=== PATIENT | male | born 1995 | race Caucasian/White ===

== ENCOUNTER 2017-11-02 18:20 | Inpatient (IN) | payer MEDICARE, MEDICAID ==
[~2017-11-02] VITALS: Ht 177.8 cm; Wt 62.1 kg
[~2017-11-02 18:20] MED LIST: ARIP15TA PO
--- OUTSIDE RECORDS SUMMARY | 2017-11-02 18:24 | XMS REPORT ---
Author Author FE REYES eClinicalWorks Address Unknown Phone Unavailable Care Team Providers Care School Physical Therapist Name Role Phone FE REYES CP Unavailable Allergies No Known Allergies Problems Problem Type Condition Code Onset Dates Condition Status Problem Acute bronchitis 466.0 Active Problem Bipolar disorder, unspecified 296.80 Active Problem Encounter for long-term (current) use of other medications V58.69 Active Problem Bipolar affective disorder F31.9 Active Problem Social phobia F40.10 Active Problem ADHD (attention deficit hyperactivity disorder), combined type F90.2 Active Problem Social phobia 300.23 Active Problem Vomiting alone 787.03 Active Problem Oppositional defiant behavior F91.3 Active Problem Attention deficit disorder of childhood without mention of hyperactivity 314.00 Active Assessment ADHD (attention deficit hyperactivity disorder), combined type F90.2 Active Assessment Bipolar affective disorder F31.9 Active Assessment Oppositional defiant behavior F91.3 Active Problem Fever, unspecified 780.60 Active Assessment Social phobia F40.10 Active Problem Cough 786.2 Active Medications Medication Code System Code Instructions Start Date End Date Status Dosage Abilify [facility] [address]-36 10 MG Orally Once a day Aug 01, 2013 1 tablet Intuniv [facility] [address]-80 1 MG Orally 1 tablet at HS for 7 days and then increase to 2 tabs at HS Apr 23, 2015 1 tablet Lexapro [facility] [address]-02 10 MG Orally Once a day 1 tablet Procedures Procedure Coding System Code Date Office Visit, Est Pt., Level 4 CPT-4 84291 Jun 04, 2015 Vital Signs Date/Time: Jun 04, 2015 Cardiac Monitoring Heart Rate 76 bpm Weight 156.8 lbs Height 67.75 in Wt Percentile 61.6 % BMI 24.02 Index Blood Pressure Diastolic 74 mmHg Blood Pressure Systolic 112 mmHg BMIPercentile 72.74 % Results No Known Results Summary Purpose eClinicalWorks Submission
--- OUTSIDE RECORDS SUMMARY | 2017-11-02 18:25 | XMS REPORT ---
Author FE Delgado eClinicalWorks Address Unknown Phone Unavailable Care Team Providers Care Computer Operations Supervisor Name Role Phone FE REYES CP Unavailable Allergies No Known Allergies Problems Problem Type Condition Code Onset Dates Condition Status Problem Acute bronchitis 466.0 Active Problem Bipolar disorder, unspecified 296.80 Active Problem Encounter for long-term (current) use of other medications V58.69 Active Problem Fever, unspecified 780.60 Active Problem Cough 786.2 Active Problem Bipolar affective disorder F31.9 Active Problem Social phobia F40.10 Active Problem ADHD (attention deficit hyperactivity disorder), combined type F90.2 Active Problem Social phobia 300.23 Active Problem Vomiting alone 787.03 Active Problem Oppositional defiant behavior F91.3 Active Problem Attention deficit disorder of childhood without mention of hyperactivity 314.00 Active Medications Medication Code System Code Instructions Start Date End Date Status Dosage Lexapro [facility] [address]-97 10 MG Orally Once a day 1 tablet Results No Known Results Summary Purpose eClinicalWorks Submission
--- OUTSIDE RECORDS SUMMARY | 2017-11-02 18:25 | XMS REPORT ---
Author Author FE REYES eClinicalWorks Address Unknown Phone Unavailable Care Team Providers Care Soda Clerk Name Role Phone FE REYES CP Unavailable Allergies No Known Allergies Problems Problem Type Condition Code Onset Dates Condition Status Assessment Social phobia F40.10 Active Problem Fever, unspecified 780.60 Active Assessment ADHD (attention deficit hyperactivity disorder), combined type F90.2 Active Assessment Bipolar affective disorder F31.9 Active Problem Social phobia 300.23 Active Problem Vomiting alone 787.03 Active Problem Attention deficit disorder of childhood without mention of hyperactivity 314.00 Active Problem Acute bronchitis 466.0 Active Problem Cough 786.2 Active Problem Bipolar disorder, unspecified 296.80 Active Problem Encounter for long-term (current) use of other medications V58.69 Active Medications Medication Code System Code Instructions Start Date End Date Status Dosage Abilify [facility] [address]-41 10 MG Orally Take 1/2 tablet for 5 nights then increase to 1 whole tablet and continue Aug 01, 2013 1 tablet Lexapro [facility] [address]-18 10 MG Orally Once a day 1 tablet Intuniv [facility] [address]-71 1 MG Orally 1 tablet at HS for 7 days and then increase to 2 tabs at HS and continue Apr 23, 2015 1 tablet Procedures Procedure Coding System Code Date Office Visit, Est Pt., Level 4 CPT-4 89955 Apr 23, 2015 Vital Signs Date/Time: Apr 23, 2015 Cardiac Monitoring Heart Rate 96 bpm Weight 152.1 lbs Height 67.75 in Wt Percentile 55.11 % BMI 23.30 Index Blood Pressure Diastolic 70 mmHg Blood Pressure Systolic 140 mmHg BMIPercentile 66.26 % Results No Known Results Summary Purpose eClinicalWorks Submission
--- OUTSIDE RECORDS SUMMARY | 2017-11-02 18:25 | XMS REPORT ---
Author FE Delgado eClinicalWorks Address Unknown Phone Unavailable Care Team Providers Care English Tutor Name Role Phone FE REYES CP Unavailable [...] without mention of hyperactivity 314.00 Active Medications No Known Medications Results No Known Results Summary Purpose eClinicalWorks Submission
--- OUTSIDE RECORDS SUMMARY | 2017-11-02 18:25 | XMS REPORT ---
Author Author JAYDE WATSON [facility] eClinicalWorks Address Unknown Phone Unavailable Care Team Providers Care Emergency Medicine Nurse Practitioner Name Role Phone JAYDE WATSON Unavailable Allergies No Known Allergies Problems No Known Problems Medications Medication Code System Code Instructions Start Date End Date Status Dosage Abiliperfecto [facility] 46367 20 mg orally once a day May 30, 2014 1 tab(s) Results No Known Results Summary Purpose eClinicalWorks Submission
--- OUTSIDE RECORDS SUMMARY | 2017-11-02 18:25 | XMS REPORT ---
Author Author JAYDE WATSON eClinicalWorks Address Unknown Phone Unavailable Care Team Providers Care Quarter Backer Name Role Phone JAYDE WATSON CP Unavailable Allergies, Adverse Reactions, Alerts Substance Reaction Event Type N.K.D.A. Info Not Available Non Drug Allergy Problems Problem Type Condition ICD-9 Code Onset Dates Condition Status Assessment Depression NEC 311 Active Assessment ADD 314.00 Active Medications Medication Code System Code Instructions Start Date End Date Status Dosage Abilify NDC 66460 20 mg orally once a day May 30, 2014 1 tab(s) Vyvanse 40 mg NDC 87516 40 mg orally q am May 30, 2014 as directed Procedures Procedure Coding System Code Date Office Visit, estab pt, Level 3 CPT-4 79230 September 03, 2014 Vital Signs Date/Time: September 03, 2014 BMI 21.45 Index Weight 138 lbs Height 67.25 in Pain Scale 0 0-10 Blood Pressure Diastolic 78 mm Hg Blood Pressure Systolic 120 mm Hg Results No Known Results Summary Purpose eClinicalWorks Submission
--- OUTSIDE RECORDS SUMMARY | 2017-11-02 18:25 | XMS REPORT ---
Author Author JAYDE WATSON eClinicalWorks Address Unknown Phone Unavailable Care Team Providers Care Electronics Instructor Name Role Phone JAYDE WATSON CP Unavailable Allergies, Adverse Reactions, Alerts Substance Reaction Event Type N.K.D.A. Info Not Available Non Drug Allergy Problems Problem Type Condition ICD-9 Code Onset Dates Condition Status Assessment Depression NEC 311 Active Assessment ADD 314.00 Active Assessment Otitis media NOS 382.9 Active Medications Medication Code System Code Instructions Start Date End Date Status Dosage Abilify NDC 22083 20 mg orally once a day May 30, 2014 1 tab(s) Vyvanse 40 mg NDC 96541 40 mg orally q am May 30, 2014 as directed amoxicillin-clavulanate NDC 86627 875 mg-125 mg orally every 12 hours Aug 06, 2014 1 tab(s) Procedures Procedure Coding System Code Date Office Visit, estab pt, Level 4 CPT-4 19260 Aug 06, 2014 Vital Signs Date/Time: Aug 06, 2014 BMI 21.74 Index Weight 138.8 lbs Height 67 in Pain Scale 3 0-10 Blood Pressure Diastolic 80 mm Hg Blood Pressure Systolic 126 mm Hg Temperature 99.6 F Results No Known Results Summary Purpose eClinicalWorks Submission
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
--- OUTSIDE RECORDS SUMMARY | 2017-11-02 18:25 | XMS REPORT ---
Author Author FE REYES eClinicalWorks Address Unknown Phone Unavailable Care Team Providers Care Farm Tractor Operator Name Role Phone FE REYES CP Unavailable Allergies No Known Allergies Problems Problem Type Condition Code Onset Dates Condition Status Problem Fever, unspecified 780.60 Active Problem Social phobia 300.23 Active Problem Vomiting alone 787.03 Active Problem Attention deficit disorder of childhood without mention of hyperactivity 314.00 Active Problem Acute bronchitis 466.0 Active Problem Cough 786.2 Active Problem Bipolar disorder, unspecified 296.80 Active Problem Encounter for long-term (current) use of other medications V58.69 Active Medications Medication Code System Code Instructions Start Date End Date Status Dosage Cholo [facility] [address]-15 10 MG Orally Take 1/2 tablet for 5 nights then increase to 1 whole tablet and continue Aug 01, 2013 1 tablet Results No Known Results Summary Purpose eClinicalWorks Submission
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
--- OUTSIDE RECORDS SUMMARY | 2017-11-02 18:25 | XMS REPORT ---
Author Author FE REYES Organization [facility] Address [address] [place] [address] Care Team Providers Care Drug And Alcohol Counselor Name Role Phone FE REYES Unavailable PROBLEMS Type Condition ICD9-CM Code [id number] Code Onset Dates Condition Status SNOMED Code Problem Vomiting alone 787.03 Active 168481626 Problem Fever, unspecified 780.60 Active 831960527 Problem Cough 786.2 Active 55961814 Problem Encounter for long-term (current) use of other medications V58.69 Active 734896608 Problem Social phobia, generalized F40.11 Active 82917627 Problem Bipolar I disorder F31.9 Active 205390851 Problem ADHD (attention deficit hyperactivity disorder), inattentive type F90.0 Active 16090315 Problem Acute bronchitis 466.0 Active 86372649 Problem Cannabis use disorder, mild, abuse F12.10 Active 14547847 Problem Bipolar affective disorder F31.9 Active 10285923 ALLERGIES Substance Reaction Event Type Date Status Penicillin V Potassium Unknown Drug Allergy Nov, Active Trileptal 300 Mg Tablet Unknown Non Drug Allergy Nov, Active ENCOUNTERS Encounter Location Date Diagnosis [facility] [id number] [place] [address] Jan, Bipolar affective disorder F31.9 ; Social phobia, generalized F40.11 ; Cannabis use disorder, mild, abuse F12.10 and ADHD ( attention deficit hyperactivity disorder), inattentive type F90.0 [facility] [id number] [place] [phone] Dec, [facility] [id number] [place] [phone]8754 Nov, Sexually transmitted disease exposure Z20.2 [facility] [id number] [place] [address]2749- 2883 Nov, Bipolar I disorder F31.9 ; Cannabis use disorder, mild, abuse F12.10 ; Social phobia, generalized F40.11 and ADHD (attention deficit hyperactivity disorder), inattentive type F90.0 [facility] [address] [id number] [id number] October, Dental examination Z01.20 [facility] [id number] [place] [address]130- 6797 Aug, [facility] [id number] [place] [address] 04617- 9285 Jun, [facility] [id number] [place] [address] 96987- 6774 May, [facility] [id number] [place] [address]36- [address] May, Bipolar affective disorder F31.9 ; ADHD (attention deficit hyperactivity disorder), combined type F90.2 ; Social phobia F40.10 and Oppositional defiant behavior F91.3 [facility] [address] [place] [address] 83229- 8794 Apr, [facility] [id number] [place] [address] 54637- 9878 Apr, ADHD (attention deficit hyperactivity disorder), combined type F90.2 ; Social phobia F40.10 and Bipolar affective disorder F31.9 [facility] [address] [place] [address] 33774- 6662 Feb, Bipolar disorder, unspecified 296.80 ; Social phobia 300.23 and Attention deficit disorder of childhood without mention of hyperactivity 314.00 [facility] [id number] [place] [address] 28024- 1678 Sep, [facility] [id number] [place] [address] 31927- 5052 Sep, [facility] [address] [place] [address]17- 4162 October, [facility] [place] [facility] [address] [id number] [place] [address] October, [facility] [place] [facility] [address] [id number] [place] [address] Sep, [facility] [place] [facility] [address] [id number] [place] [address] Sep, [facility] [place] [facility] [address] [id number] [place] [address] 4[address] Sep, [facility] [place] [facility] [address] [id number] [place] [address] 27[address] Aug, [facility] [place] [facility] [address] [id number] [place] [address] Aug, [facility] [place] [facility] [address] [id number] [place] [address] 6285 Jul, [facility] [place] [facility] [address] [id number] [place] [address] Jul, [facility] [place] [facility] [address] [id number] [place] [address] 28[address] Jul, [facility] [place] [facility] [address] [id number] [place] [address] 5691 Jul, [facility] [place] [facility] [address] [id number] [place] [address] 3210 Jun, [facility] [place] [facility] [address] [id number], [place] [address] Jun, [facility] [place] [facility] [address] [id number] [place] [address] May, [facility] [place] [facility] [address] [id number] [place] [address] May, [facility] [place] [facility] [address] [id number] [place] [address] Apr, [facility] [place] [facility] [address] [id number], [place] [address] Apr, [facility] [address] [facility] [id number] [place] [address] 2546 Aug, [facility] [address] [facility] [id number], [place] [address] Jul, [facility] [address] [facility] [id number], [place] [address]46 Jun, [facility] [address] [facility] [id number], [place] [address] Jun, [facility] [address] [facility] [id number], [place] [address] May, [facility] [address] [facility] [id number], [place] [address] May, IMMUNIZATIONS No Known Immunizations SOCIAL HISTORY Never Assessed REASON FOR VISIT BH intake. KBDerickN PLAN OF CARE Activity Details Follow Up 6 Weeks Reason: VITAL SIGNS Height 67.75 in 2016-12-17 Weight 147.0 lbs 2016-12-17 Heart Rate 88 bpm 2016-12-17 Respiratory Rate 20 2016-12-17 BMI 22.51 kg/m2 2016-12-17 Blood pressure systolic 108 mmHg 2016-12-17 Blood pressure diastolic 62 mmHg 2016-12-17 MEDICATIONS Medication Instructions Dosage Frequency Start Date End Date Duration Status Intuniv 1 MG Orally Once a day 1 tablet 24h Nov, Active Depakote ER 500 mg Orally at bedtime for mood 1 tablet Nov, 30 days Active RESULTS No Results PROCEDURES No Known [...] [facility] 01/2015 Hospitalization History [facility] 10/2016 Hospitalization History [facility] 06/2015
--- OUTSIDE RECORDS SUMMARY | 2017-11-02 18:25 | XMS REPORT ---
Author Author FE REYES [employer] Address Unknown Phone Unavailable Care Team Providers Care Banking Center Manager Name Role Phone FE REYES CP Unavailable Allergies, Adverse Reactions, Alerts Substance Reaction Event Type Trileptal 300 Mg Tablet Info Not Available Non Drug Allergy Problems Problem Type Condition ICD-9 Code Onset Dates Condition Status Assessment Social phobia 300.23 Active Problem Fever, unspecified 780.60 Active Assessment Bipolar disorder, unspecified 296.80 Active Assessment Attention deficit disorder of childhood without mention of hyperactivity 314.00 Active Problem Social phobia 300.23 Active Problem Vomiting alone 787.03 Active Problem Attention deficit disorder of childhood without mention of hyperactivity 314.00 Active Problem Acute bronchitis 466.0 Active Problem Cough 786.2 Active Problem Bipolar disorder, unspecified 296.80 Active Problem Encounter for long-term (current) use of other medications V58.69 Active Medications Medication Code System Code Instructions Start Date End Date Status Dosage Abilify [facility] [address]-09 10 MG Orally Once a day at bedtime Aug 01, 2013 1 tablet Lexapro [facility] [address]-09 10 MG Orally Once a day 1 tablet Procedures Procedure Coding System Code Date Office Visit, Est Pt., Level 4 CPT-4 83720 2015 Vital Signs Date/Time: 2015 Temperature 98.0 F Weight 151.7 lbs Height 67.75 in BMI 23.23 Index Blood Pressure Diastolic 85 mmHg Blood Pressure Systolic 130 mmHg Cardiac Monitoring Heart Rate 88 bpm BMIPercentile 66.69 % Wt Percentile 55.74 % Results No Known Results Summary Purpose eClinicalWorks Submission
--- OUTSIDE RECORDS SUMMARY | 2017-11-02 18:26 | XMS REPORT | Continuity of Care Document ---
Author Author [facility] Organization [facility] Address Unknown Phone Unavailable Allergies Active Description Code Type Severity Reaction Onset Reported/Identified Relationship to Patient Clinical Status Yes Trileptal 300 mg tablet Drug Allergy N/A N/A 07/26/2013 Medications There is no data. Problems Date Dx Coded Attending Type Code Diagnosis Diagnosed By 08/15/2008 V20.2 WELL CHILD, ROUTINE 08/15/2008 V20.2 WELL CHILD, ROUTINE 08/15/2008 V20.2 WELL CHILD, ROUTINE 08/15/2008 AD FRANKEL APRN V20.2 WELL CHILD, ROUTINE 08/15/2008 JER LE LCPC V20.2 WELL CHILD, ROUTINE 08/15/2008 RAZ JEAN-BAPTISTE DO V20.2 WELL CHILD, ROUTINE 08/15/2008 OFE GARCIA, TORY V20.2 WELL CHILD, ROUTINE 08/15/2008 FE REYES APRN V20.2 WELL CHILD, ROUTINE 08/15/2008 OFE GARCIA, TORY V20.2 WELL CHILD, ROUTINE 08/15/2008 TORY THAKUR MD V20.2 WELL CHILD, ROUTINE 08/15/2008 FE REYES APRN V20.2 WELL CHILD, ROUTINE 08/15/2008 FE REYES APRN V20.2 WELL CHILD, ROUTINE 06/17/2012 466.0 BRONCHITIS, ACUTE 06/17/2012 V58.69 LONG-TERM ( CURRENT) USE OF OTHER MEDICATIONS 06/17/2012 466.0 BRONCHITIS, ACUTE 06/17/2012 V58.69 LONG-TERM ( CURRENT) USE OF OTHER MEDICATIONS 06/17/2012 466.0 BRONCHITIS, ACUTE 06/17/2012 V58.69 LONG-TERM ( CURRENT) USE OF OTHER MEDICATIONS 06/17/2012 AD FRANKEL APRN 466.0 BRONCHITIS, ACUTE 06/17/2012 AD FRANKEL APRN V58.69 LONG-TERM (CURRENT) USE OF OTHER MEDICATIONS 06/17/2012 JER LE LCPC B 466.0 BRONCHITIS, ACUTE 06/17/2012 JER LE LCPC V58.69 LONG-TERM (CURRENT) USE OF OTHER MEDICATIONS 06/17/2012 RAZ JEAN-BAPTISTE DO K 466.0 BRONCHITIS, ACUTE 06/17/2012 RAZ JEAN-BAPTISTE DO K V58.69 LONG-TERM (CURRENT) USE OF OTHER MEDICATIONS 06/17/2012 TORY THAKUR MD 466.0 BRONCHITIS, ACUTE 06/17/2012 TORY THAKUR MD V58.69 LONG-TERM (CURRENT) USE OF OTHER MEDICATIONS 06/17/2012 FE REYES APRN 466.0 BRONCHITIS, ACUTE 06/17/2012 FE REYES APRN V58.69 LONG-TERM (CURRENT) USE OF OTHER MEDICATIONS 06/17/2012 TORY THAKUR MD 466.0 BRONCHITIS, ACUTE 06/17/2012 TORY THAKUR MD V58.69 LONG-TERM (CURRENT) USE OF OTHER MEDICATIONS 06/17/2012 TORY THAKUR MD 466.0 BRONCHITIS, ACUTE 06/17/2012 TORY THAKUR MD V58.69 LONG-TERM (CURRENT) USE OF OTHER MEDICATIONS 06/17/2012 FE REYES APRN 466.0 BRONCHITIS, ACUTE 06/17/2012 FE REYES APRN V58.69 LONG-TERM (CURRENT) USE OF OTHER MEDICATIONS 06/17/2012 FE REEYS APRN 466.0 BRONCHITIS, ACUTE 06/17/2012 FE REYES APRN V58.69 LONG-TERM (CURRENT) USE OF OTHER MEDICATIONS 07/05/2012 787.03 vomiting 07/05/2012 787.03 vomiting 07/05/2012 AD FRANKEL APRN 787.03 vomiting 07/05/2012 JER LE LCPC 787.03 vomiting 07/05/2012 RAZ JEAN-BAPTISTE DO 787.03 VOMITING 07/05/2012 TORY THAKUR MD 787.03 VOMITING 07/05/2012 FE REYES APRN 787.03 VOMITING 07/05/2012 TORY THAKUR MD 787.03 VOMITING 07/05/2012 TORY THAKUR MD 787.03 VOMITING 07/05/2012 FE REYES APRN 787.03 VOMITING 07/05/2012 HOLLIE REYES APRNA J 787.03 VOMITING 07/18/2012 780.60 fever [as symptom] 07/18/2012 786.2 cough 07/18/2012 AD FRANKEL APRN R 780.60 fever [as symptom] 07/18/2012 HAILE FRANKEL APRNIA R 786.2 cough 07/18/2012 JER LE LCPC B 780.60 fever [as symptom] 07/18/2012 JER LE LCPC B 786.2 cough 07/18/2012 JEAN-BAPTISTE DO, RAZ K 780.60 FEVER [ SYMPTOM] 07/18/2012 JEAN-BAPTISTE DO, RAZ K 786.2 COUGH 07/18/2012 TORY THAKUR MD 780.60 FEVER [ SYMPTOM] 07/18/2012 TORY THAKUR MD 786.2 COUGH 07/18/2012 FE REYES APRN 780.60 FEVER [ SYMPTOM] 07/18/2012 FE REYES APRN 786.2 COUGH 07/18/2012 TORY THAKUR MD 780.60 FEVER [ SYMPTOM] 07/18/2012 TORY THAKUR MD 786.2 COUGH 07/18/2012 TORY THAKUR MD 780.60 FEVER [ SYMPTOM] 07/18/2012 TORY THAKUR MD 786.2 COUGH 07/18/2012 FE REYES APRN 780.60 FEVER [ SYMPTOM] 07/18/2012 FE REYES APRN 786.2 COUGH 07/18/2012 FE REYES APRN 780.60 FEVER [ SYMPTOM] 07/18/2012 HOLLIE REYES APRNA Ana Cristina 786.2 COUGH 05/05/2013 JER LE LCPC B 296.80 MO BIPOLAR NOS 05/05/2013 JEAN-BAPTISTE DO, RAZ K 296.80 MO BIPOLAR NOS 05/05/2013 TORY THAKUR MD 296.80 MO BIPOLAR NOS 05/05/2013 FE REYES APRN J 296.80 MO BIPOLAR NOS 05/05/2013 TORY THAKUR MD 296.80 MO BIPOLAR NOS 05/05/2013 TORY THAKUR MD 296.80 MO BIPOLAR NOS 05/05/2013 FE REYES APRN 296.80 MO BIPOLAR NOS 05/05/2013 FE REYES APRN 296.80 MO BIPOLAR NOS 08/01/2013 TORY THKAUR MD 314.00 ADHD INATTENTIVE 08/01/2013 TORY THAKUR MD 314.00 ADHD INATTENTIVE 08/01/2013 FE REYES APRN 314.00 ADHD INATTENTIVE 08/01/2013 FE REYES APRN 314.00 ADHD INATTENTIVE 08/30/2013 TORY THAKUR MD 300.23 AN SOCIAL PHOBIA 08/30/2013 FE REYES APRN 300.23 AN SOCIAL PHOBIA 08/30/2013 FE REYES APRN 300.23 AN SOCIAL PHOBIA Procedures Code Description [place] [id number] STREP A (IN-HOUSE) 07/18/2012 04166 PSYCH DIAGNOSTIC EVALUATION 05/08/2013 Results There is no data. Encounters ACCT No. Visit Date/Time Discharge Status Pt. Type Provider Facility Loc./Unit Complaint [id number] 04/06/2013 11:55:00 04/06/2013 13:31:00 DIS Emergency [id number] 09/27/2013 10:23:00 09/27/2013 23:59:59 CLS Outpatient FE REYES APRN [id number] 09/27/2013 10:23:00 09/27/2013 23:59:59 CLS Outpatient FE REYES APRN [id number] 08/30/2013 09:22:00 08/30/2013 23:59:59 CLS Outpatient TORY THAKUR MD [id number] 08/01/2013 11:06:00 08/01/2013 23:59:59 CLS Outpatient TORY THAKUR MD [id number] 07/05/2013 08:59:00 07/05/2013 23:59:59 CLS Outpatient FE REYES APRN [id number] 07/05/2013 08:59:00 07/05/2013 23:59:59 CLS Outpatient TORY THAKUR MD [id number] 05/22/2013 11:54:00 05/22/2013 23:59:59 CLS Outpatient RAZ JEAN-BAPTISTE DO [id number] 05/05/2013 13:46:00 05/05/2013 23:59:59 CLS Outpatient JER LE LCPC [id number] 07/18/2012 14:04:00 07/18/2012 23:59:59 CLS Outpatient [id number] 07/18/2012 14:04:00 07/18/2012 23:59:59 CLS Outpatient AD FRANKEL APRN [id number] 07/05/2012 14:37:00 07/05/2012 23:59:59 CLS Outpatient [id number] 06/17/2012 11:42:00 06/17/2012 23:59:59 CLS Outpatient
[2017-11-02] MEDS ORDERED: NS IV 1000 ML 1,000 ML IV ONE (18:29)
[2017-11-02] MEDS ORDERED: ONDANSETRON 4 MG/2 ML (SDV) Z0FRAN IVP ONE (18:30)
[2017-11-02] MEDS ORDERED: PANTOPRAZOLE 40 MG/10 ML (PROTONIX) VIAL IV ONE (18:30)
[2017-11-02 18:42] LABS: BASOPHILS % (AUTO) 0 % (0-10); EOSINOPHILS % (AUTO) 0 % (0-10); HEMATOCRIT 50 % (40-54); HEMOGLOBIN 18.2 G/DL (13.3-17.7); LYMPHOCYTES # (AUTO) 1.6 X 10^3 (1.0-4.0); LYMPHOCYTES % (AUTO) 10 % (12-44); MEAN CORPUSCULAR HEMOGLOBIN 33 PG (25-34); MEAN CORPUSCULAR HGB CONC 36 G/DL (32-36); MEAN CORPUSCULAR VOLUME 92 FL (80-99); MEAN PLATELET VOLUME 10.3 FL (7.4-10.4); MONOCYTES # (AUTO) 0.8 X 10^3 (0.0-1.0); MONOCYTES % (AUTO) 5 % (0-12); NEUTROPHILS # (AUTO) 13.7 X 10^3 (1.8-7.8); NEUTROPHILS % (AUTO) 85 % (42-75); PLATELET COUNT 355 10^3/uL (130-400); RED BLOOD COUNT 5.49 10^6/uL (4.35-5.85); WHITE BLOOD COUNT 16.1 10^3/uL (4.3-11.0)
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
[2017-11-02] MEDS ORDERED: IOHEXOL 350 MG/ML 100 ML (OMNIPAQUE 350) VIAL IV ONE (18:45)
[2017-11-02] MEDS ORDERED: NS 250 ML (IVPB) BAG IV ONE (18:45)
[2017-11-02 18:52] LABS: INR 1.1 (0.8-1.4); PROTHROMBIN TIME PATIENT 14.7 SEC (12.2-14.7)
[2017-11-02 18:57] LABS: ALANINE AMINOTRANSFERASE 14 U/L (0-55); ALBUMIN 4.8 GM/DL (3.2-4.5); ALKALINE PHOSPHATASE 71 U/L (40-136); AMYLASE 43 U/L (25-125); BILIRUBIN,TOTAL 0.2 MG/DL (0.1-1.0); BUN/CREATININE RATIO 7; CALCIUM 9.6 MG/DL (8.5-10.1); CARBON DIOXIDE 23 MMOL/L (21-32); CHLORIDE 105 MMOL/L (98-107); CREATININE SERUM 1.18 MG/DL (0.60-1.30); GFR ESTIMATED > 60; GLUCOSE 135 MG/DL (70-105); LIPASE 12 U/L (8-78); MAGNESIUM 2.1 MG/DL (1.8-2.4); POTASSIUM 3.4 MMOL/L (3.6-5.0); SALICYLATE < 5.0 MG/DL (5.0-20.0); SODIUM 146 MMOL/L (135-145); TOTAL PROTEIN 7.9 GM/DL (6.4-8.2)
[2017-11-02 18:58] LABS: BAND NEUTROPHILS 6 %; BASOPHILS % (MANUAL) 0 %; EOSINOPHILS % (MANUAL) 0 %; LYMPHOCYTES % (MANUAL) 12 %; MONOCYTES % (MANUAL) 6 %; NEUTROPHILS % (MANUAL) 76 %; RBC MORPH NORMAL
[2017-11-02 19:00] LABS: ACETAMINOPHEN < 10 UG/ML (10-30)
[2017-11-02 19:16] LABS: TSH (THYROID ANALYZER) 0.65 UIU/ML (0.35-4.94)
--- NOTE | 2017-11-02 19:48 | Diagnostic Imaging Report ---
PROCEDURE: CT chest, abdomen, and pelvis with contrast. TECHNIQUE: Multiple contiguous axial images were obtained through the chest, abdomen, and pelvis after the administration of intravenous contrast. INDICATION: Overdose. COMPARISON: No prior studies are available for comparison. CT CHEST: No axillary lymphadenopathy is detected. No hilar or mediastinal lymphadenopathy is seen. No pericardial or pleural fluid is detected. No parenchymal infiltrate, nodule, or mass is seen. There is no pneumothorax identified. The bony structures appear nonacute. IMPRESSION: Unremarkable CT of the chest. CT ABDOMEN AND PELVIS: The liver and spleen are unremarkable. No adrenal mass is detected. The kidneys are unremarkable. The aorta is nonaneurysmal. The small and large bowel loops are normal in caliber. No obstruction is identified. No inflammatory process is seen. There is no ascites. The bladder is unremarkable. The bony structures are nonacute. IMPRESSION: Unremarkable CT of the abdomen and pelvis. Dictated by: Dictated on workstation # [id number]
--- NOTE | 2017-11-02 19:48 | Diagnostic Imaging Report ---
INDICATION: Drug overdose EXAM: Portable chest at 7:56 PM FINDINGS: Heart size and pulmonary vascularity are normal. Lungs are clear. There are no effusions or pneumothoraces. IMPRESSION: Negative chest. Dictated by: Dictated on workstation # [id number]
[2017-11-02] MEDS ORDERED: OCTREOTIDE INJECTION 50 MCG in NS (IVPB) 50 ML IV ONE (20:30)
[2017-11-02 20:32] LABS: CLARITY,URINE CLEAR; COLOR,URINE YELLOW; GLUCOSE, URINE (UA) NEGATIVE (NEGATIVE); KETONES,URINE 1+ (NEGATIVE); LEUKOCYTE ESTERASE ,URINE 1+ (NEGATIVE); NITRITE,URINE NEGATIVE (NEGATIVE); PH,URINE 8 (5-9); PROTEIN,URINE 2+ (NEGATIVE); UROBILINOGEN,URINE 1 MG/DL (NORMAL)
[2017-11-02 20:41] LABS: BILIRUBIN,URINE 2+ (NEGATIVE); RBC,URINE RARE /HPF; SQUAMOUS EPITHELIAL CELL,UR 0-2 /HPF; WBC,URINE 0-2 /HPF
--- OUTSIDE RECORDS SUMMARY | 2017-11-02 20:46 | XMS REPORT | Continuity of Care Document ---
Author Author [facility] Organization [facility] Address Unknown Phone Unavailable Allergies Active [...] LCPC B 296.80 MO BIPOLAR NOS 05/05/2013 JEAN-BAPTISET DO, RAZ K 296.80 MO BIPOLAR NOS 05/05/2013 TORY THAKUR MD 296.80 MO BIPOLAR NOS 05/05/2013 FE REYES APRN J 296.80 MO BIPOLAR NOS 05/05/2013 TORY THAKUR MD 296.80 MO BIPOLAR NOS 05/05/2013 TORY THAKUR MD 296.80 MO BIPOLAR NOS 05/05/2013 FE REYES APRN 296.80 MO BIPOLAR NOS 05/05/2013 FE REYES APRN 296.80 MO BIPOLAR NOS 08/01/2013 TORY THAKUR MD 314.00 ADHD INATTENTIVE 08/01/2013 TORY THAKUR MD 314.00 ADHD INATTENTIVE 08/01/2013 FE REYES APRN 314.00 ADHD INATTENTIVE 08/01/2013 FE REYES APRN 314.00 ADHD INATTENTIVE 08/30/2013 TORY THAKUR MD 300.23 AN SOCIAL PHOBIA 08/30/2013 FE REYES APRN 300.23 AN SOCIAL PHOBIA 08/30/2013 FE REYES APRN 300.23 AN SOCIAL PHOBIA Procedures Code Description [place] [address] [facility] (IN-HOUSE) 07/18/2012 74808 PSYCH DIAGNOSTIC EVALUATION 05/08/2013 Results Test Result Range Complete blood count (CBC) with automated white blood cell (WBC) differential - 11/02/17 18:25 Blood leukocytes automated count (number/volume) 16.1 10*3/uL 4.3-11.0 Blood erythrocytes automated count (number/volume) 5.49 10*6/uL 4.35-5.85 Venous blood hemoglobin measurement (mass/volume) 18.2 g/dL 13.3-17.7 Blood hematocrit (volume fraction) 50 % 40-54 Automated erythrocyte mean corpuscular volume 92 [foz_us] 80-99 Automated erythrocyte mean corpuscular hemoglobin (mass per erythrocyte) 33 pg 25-34 Automated erythrocyte mean corpuscular hemoglobin concentration measurement ( mass/volume) 36 g/dL 32-36 Automated erythrocyte distribution width ratio 13.0 % 10.0-14.5 Automated blood platelet count (count/volume) 355 10*3/uL 130-400 Automated blood platelet mean volume measurement 10.3 [foz_us] 7.4-10.4 Automated blood neutrophils/100 leukocytes 85 % 42-75 Automated blood lymphocytes/100 leukocytes 10 % 12-44 Blood monocytes/100 leukocytes 5 % 0-12 Automated blood eosinophils/100 leukocytes 0 % 0-10 Automated blood basophils/100 leukocytes 0 % 0-10 Blood neutrophils automated count (number/volume) 13.7 10*3 1.8-7.8 Blood lymphocytes automated count (number/volume) 1.6 10*3 1.0-4.0 Blood monocytes automated count (number/volume) 0.8 10*3 0.0-1.0 Automated eosinophil count 0.0 10*3/uL 0.0-0.3 Automated blood basophil count (count/volume) 0.0 10*3/uL 0.0-0.1 PT panel in platelet poor plasma by coagulation assay - 11/02/17 18:25 Prothrombin time (PT) in platelet poor plasma by coagulation assay 14.7 s 12.2-14.7 INR in platelet poor plasma or blood by coagulation assay 1.1 0.8-1.4 Activated partial thromboplastin time (aPTT) in platelet poor plasma bycoagulation assay - 11/02/17 18:25 Activated partial thromboplastin time (aPTT) in platelet poor plasma bycoagulation assay 28 s 24-35 Comprehensive metabolic panel - 11/02/17 18:25 Serum or plasma sodium measurement (moles/volume) 146 mmol/L 135-145 Serum or plasma potassium measurement (moles/volume) 3.4 mmol/L 3.6-5.0 Serum or plasma chloride measurement (moles/volume) 105 mmol/L 98-107 Carbon dioxide 23 mmol/L 21-32 Serum or plasma anion gap determination (moles/volume) 18 mmol/L 5-14 Serum or plasma urea nitrogen measurement (mass/volume) 8 mg/dL 7-18 Serum or plasma creatinine measurement (mass/volume) 1.18 mg/dL 0.60-1.30 Serum or plasma urea nitrogen/creatinine mass ratio 7 NRG Serum or plasma creatinine measurement with calculation of estimated glomerular filtration rate > NRG Serum or plasma glucose measurement (mass/volume) 135 mg/dL 70-105 Serum or plasma calcium measurement (mass/volume) 9.6 mg/dL 8.5-10.1 Serum or plasma total bilirubin measurement (mass/volume) 0.2 mg/dL 0.1-1.0 Serum or plasma alkaline phosphatase measurement (enzymatic activity/volume) 71 U/L 40-136 Serum or plasma aspartate aminotransferase measurement (enzymatic activity/ volume) 20 U/L 5-34 Serum or plasma alanine aminotransferase measurement (enzymatic activity/volume ) 14 U/L 0-55 Serum or plasma protein measurement (mass/volume) 7.9 g/dL 6.4-8.2 Serum or plasma albumin measurement (mass/volume) 4.8 g/dL 3.2-4.5 Magnesium - 11/02/17 18:25 Magnesium 2.1 mg/dL 1.8-2.4 Serum or plasma amylase measurement (enzymatic activity/volume) - 11/02/17 18: 25 Serum or plasma amylase measurement (enzymatic activity/volume) 43 U /L 25-125 Lipase - 11/02/17 18:25 Lipase 12 U/L 8-78 Serum or plasma thyrotropin measurement by detection limit <=0.05 miu/l (units/ volume) - 11/02/17 18:25 Serum or plasma thyrotropin measurement by detection limit <=0.05 miu/l (units/ volume) 0.65 u[iU]/mL 0.35-4.94 Blood manual differential performed detection - 11/02/17 18:25 Blood monocytes/100 leukocytes 6 % NRG Manual blood segmented neutrophils/100 leukocytes 76 % NRG Blood band neutrophils/100 leukocytes 6 % NRG Manual blood lymphocytes/100 leukocytes 12 % NRG Manual eosinophils/100 leukocytes in nose 0 % NRG Manual blood basophils/100 leukocytes 0 % NRG Blood erythrocyte morphology finding identification NORMAL NRG Serum or plasma salicylates measurement (mass/volume) - 11/02/17 18:25 Serum or plasma salicylates measurement (mass/volume) < mg/dL 5.0-20.0 Serum or plasma acetaminophen measurement (mass/volume) - 11/02/17 18:25 Serum or plasma acetaminophen measurement (mass/volume) < ug/mL 10-30 Serum or plasma ethanol measurement (mass/volume) - 11/02/17 18:25 Serum or plasma ethanol measurement (mass/volume) 71 mg/dL <10 Blood type T Indirect antibody screen panel - 11/02/17 19:05 ABO+Rh group AP NR Transfusion band number [id number] NR Blood group antibody screen NEGATIVE NR Complete urinalysis with reflex to culture - 11/02/17 20:23 Urine color determination YELLOW NRG Urine clarity determination CLEAR NRG Urine pH measurement by test strip 8 5-9 Specific gravity of urine by test strip 1.010 1.016- 1.022 Urine protein assay by test strip, semi-quantitative 2+ NEGATIVE Urine glucose detection by automated test strip NEGATIVE NEGATIVE Erythrocytes detection in urine sediment by light microscopy NEGATIVE NEGATIVE Urine ketones detection by automated test strip 1+ NEGATIVE Urine nitrite detection by test strip NEGATIVE NEGATIVE Urine total bilirubin detection by test strip 2+ NEGATIVE Urine urobilinogen measurement by automated test strip (mass/volume) 1 mg/dL NORMAL Urine leukocyte esterase detection by dipstick 1+ NEGATIVE Automated urine sediment erythrocyte count by microscopy (number/high power field) RARE NRG Automated urine sediment leukocyte count by microscopy (number/high power field ) [HPF] NRG Bacteria detection in urine sediment by light microscopy NONE NRG Squamous epithelial cells detection in urine sediment by light microscopy 0-2 NRG Crystals detection in urine sediment by light microscopy NONE NRG Casts detection in urine sediment by light microscopy NONE NRG Mucus detection in urine sediment by light microscopy NEGATIVE NRG Complete urinalysis with reflex to culture NO NRG Encounters ACCT No. Visit Date/Time Discharge Status Pt. Type Provider Facility Loc./Unit Complaint [id number] 04/06/2013 11:55:00 04/06/2013 13:31:00 DIS Emergency [id number] 11/02/2017 18:49:00 Document Registration [id number] 09/27/2013 10:23:00 09/27/2013 23:59:59 CLS Outpatient FE REYES APRN [id number] 09/27/2013 10:23:00 09/27/2013 23:59:59 CLS Outpatient FE REYES APRN [id number] 08/30/2013 09:22:00 08/30/2013 23:59:59 CLS Outpatient TORY THAKUR MD [id number] 08/01/2013 11:06:00 08/01/2013 23:59:59 CLS Outpatient TORY THAKUR MD [id number] 07/05/2013 08:59:00 07/05/2013 23:59:59 CLS Outpatient FE REYES APRN [id number] 07/05/2013 08:59:00 07/05/2013 23:59:59 CLS Outpatient TORY THAKUR MD [id number] 05/22/2013 11:54:00 05/22/2013 23:59:59 CLS Outpatient RAZ JEAN-BAPTISTE DO [id number] 05/05/2013 13:46:00 05/05/2013 23:59:59 CLS Outpatient JER LE LCPC [id number] 07/18/2012 14:04:00 07/18/2012 23:59:59 CLS Outpatient [id number] 07/18/2012 14:04:00 07/18/2012 23:59:59 CLS Outpatient AD FRANKEL APRN [id number] 07/05/2012 14:37:00 07/05/2012 23:59:59 CLS Outpatient [id number] 06/17/2012 11:42:00 06/17/2012 23:59:59 CLS Outpatient
[2017-11-02] MEDS ORDERED: NS IV 1000 ML 1,000 ML ONE (20:48)
[2017-11-02] MEDS ORDERED: OCTREOTIDE DRIP KIT ONE (20:54)
[2017-11-02] MEDS ORDERED: NS (IVPB) 0 ML ONE (20:55)
[2017-11-02 21:02] LABS: AMPHETAMINE SCREEN, URINE NEGATIVE (NEGATIVE); BARBITURATE SCREEN URINE POSITIVE (NEGATIVE); BENZODIAZEPINES SCREEN URINE NEGATIVE (NEGATIVE); CANNABINOID SCREEN, URINE POSITIVE (NEGATIVE); COCAINE SCREEN URINE NEGATIVE (NEGATIVE); METHADONE STAT NEGATIVE (NEGATIVE); METHAMPHETAMINE SCREEN URINE S NEGATIVE (NEGATIVE); OPIATE SCREEN URINE NEGATIVE (NEGATIVE); OXYCODONE STAT NEGATIVE (NEGATIVE); PROPOXYPHENE STAT NEGATIVE (NEGATIVE); TRICYCLIC ANTIDEPRESSANTS SCRE NEGATIVE (NEGATIVE)
[2017-11-02 21:15] VITALS: BP 122/75
[2017-11-02 22:00] VITALS: BP 119/76
[2017-11-02] MEDS ORDERED: CATHETER FLUSH 10 ML SYR IV PRN (22:00)
[2017-11-02] MEDS ORDERED: PANTOPRAZOLE DRIP 200 MG/D5W 50 ML IV SCH ×2 (22:00)
[2017-11-02] MEDS ORDERED: ONDANSETRON 4 MG/2 ML (SDV) Z0FRAN IV PRN (22:00)
[2017-11-02] MEDS: DEXTROSE IV SCH ×2 (22:05)
[2017-11-02] MEDS: OCTREOTIDE IV SCH ×2 (22:05)
[2017-11-02] MEDS: NS IV 1000 ML 1,000 ML IV SCH (22:09)
[2017-11-02 23:00] VITALS: BP 122/72
[2017-11-02] MEDS: CATHETER FLUSH 10 ML SYR IV SCH (23:08)
[2017-11-02] MEDS ORDERED: NS (IVPB) 100 ML ONE (23:33)
[2017-11-02] MEDS ORDERED: NS (IVPB) 50 ML ONE (23:50)
[2017-11-03] VITALS (14 sets, daily range): BP systolic 116–153; BP diastolic 65–104
[2017-11-03] MEDS: NS IV 1000 ML 1,000 ML IV SCH ×2 (03:17→09:43)
[2017-11-03 04:13] LABS: BASOPHILS % (AUTO) 0 % (0-10); EOSINOPHILS % (AUTO) 0 % (0-10); HEMATOCRIT 43 % (40-54); HEMOGLOBIN 14.9 G/DL (13.3-17.7); LYMPHOCYTES % (AUTO) 19 % (12-44); MEAN CORPUSCULAR HEMOGLOBIN 33 PG (25-34); MEAN CORPUSCULAR HGB CONC 35 G/DL (32-36); MEAN CORPUSCULAR VOLUME 94 FL (80-99); MEAN PLATELET VOLUME 10.2 FL (7.4-10.4); MONOCYTES # (AUTO) 0.7 X 10^3 (0.0-1.0); MONOCYTES % (AUTO) 7 % (0-12); NEUTROPHILS % (AUTO) 74 % (42-75); PLATELET COUNT 277 10^3/uL (130-400); RED BLOOD COUNT 4.53 10^6/uL (4.35-5.85); RED CELL DISTRIBUTION WIDTH 13.4 % (10.0-14.5); WHITE BLOOD COUNT 10.7 10^3/uL (4.3-11.0)
[2017-11-03 04:45] LABS: ALANINE AMINOTRANSFERASE 8 U/L (0-55); ALBUMIN 3.6 GM/DL (3.2-4.5); ALKALINE PHOSPHATASE 53 U/L (40-136); BILIRUBIN,TOTAL 0.4 MG/DL (0.1-1.0); BUN/CREATININE RATIO 11; CALCIUM 8.1 MG/DL (8.5-10.1); CARBON DIOXIDE 18 MMOL/L (21-32); CHLORIDE 114 MMOL/L (98-107); CREATININE SERUM 0.91 MG/DL (0.60-1.30); GFR ESTIMATED > 60; GLUCOSE 83 MG/DL (70-105); POTASSIUM 4.2 MMOL/L (3.6-5.0); SODIUM 143 MMOL/L (135-145); TOTAL PROTEIN 5.8 GM/DL (6.4-8.2)
[2017-11-03] MEDS: CATHETER FLUSH 10 ML SYR IV SCH (06:03)
[2017-11-03] MEDS: OCTREOTIDE IV SCH ×2 (09:43)
[2017-11-03] MEDS: DEXTROSE IV SCH ×2 (09:43)
--- NOTE | 2017-11-03 09:51 | History & Physicial (CHS) ---
HPI History of Present Illness: Pt presented to ED via EMS yesterday after being called by family member. Patient has history of intentional overdose. Appears that he took an unknown - but likely significant - number of OTC aleve tablets; large, brand new bottle was found and was empty. Patient initially stated he took a couple because he had dental pain, around 0800. Later stated he took more than just a couple but not too many with a few shots of alcohol. Around 1000 family members report pt began complaining of abdominal pain. EMS was called later in the afternoon when it did not resolve. EMS had about 150 cc hematemesis, the patient had about the same amount in the ED. Admitted for suicidal ideation as well as evaluation for suspected GI bleed. When brought in by EMS was also accompanied by Román LOZANO, who requests to know when patient is discharged. When seen in the ICU the patient reports he is feeling much better. He denies feeling suicidal or having any plans to hurt himself and denies taking the Aleve as a suicidal gesture yesterday. He is hungry and would like to eat. He would also like to be restarted on his previous psych medications. Source: patient, RN/MD, old records Exam Limitations: no limitations Date seen by provider: November 03, 2017 Time Seen by Provider: 10:29 Attending Physician Katy Cisneros DO [facility] [place],[facility] Consult Dr. Hernandez, General Surgery Date of Admission November 02, 2017 at 20:40 Home Medications Home Medications Reviewed patient Home Medication Reconciliation performed by pharmacy medication reconciliations photovoltaic fabrication technician and/or nursing. Patients Allergies have been reviewed. Allergies Coded Allergies: No Known Drug Allergies (Unverified , 04/06/13) VMR-Pkltra-Xglyqh Hx Patient Social History Marrital Status: single Living Status: lives at home with family Alcohol Use: Occasionally Uses Recreational Drug Use: Yes (THC, + FOR BARBITURATES 11/02/17) Drug of Choice: THC, + FOR BARBITURATES 11/02/17 Smoking Status: Current Everyday Smoker Type Used: Cigarettes Recent Foreign Travel: No Contact w/other who traveled: No Recent Infectious Disease Expo: No Physical Abuse Screen: Yes Sexual Abuse: No Immunizations Up To Date Tetanus Booster (TDap): Unknown Past Medical History Bipolar Disorder ADD Drug Abuse Tobacco Abuse Medical Noncompliance Family Medical History Significant Family History: Heart Disease, Hypertension, Psychiatric Problems, Vascular Disease Review of Systems (CHC) Constitutional: see HPI EENTM: mouth pain Respiratory: no symptoms reported Cardiovascular: no symptoms reported Gastrointestinal: see HPI, hematemesis, nausea, vomiting Genitourinary: no symptoms reported Musculoskeletal: see HPI Skin: no symptoms reported Psychiatric/Neurological: Other (uncooperative with exam) Reviewed Test Results Reviewed Test Results Lab Laboratory Tests Test 11/02/17 18:25 11/02/17 20:23 11/03/17 00:36 11/03/17 03:43 Range/Units White Blood Count 16.1 H 10.7 4.3-11.0 10^3/uL Red Blood Count 5.49 4.53 4.35-5.85 10^6/uL Hemoglobin 18.2 H 14.9 14.9 13.3-17.7 G/DL Hematocrit 50 43 40-54 % Mean Corpuscular Volume 92 94 80-99 FL Mean Corpuscular Hemoglobin 33 33 25-34 PG Mean Corpuscular Hemoglobin Concent 36 35 32-36 G/DL Red Cell Distribution Width 13.0 13.4 10.0-14.5 % Platelet Count 355 277 130-400 10^3/uL Mean Platelet Volume 10.3 10.2 7.4-10.4 FL Neutrophils (%) (Auto) 85 H 74 42-75 % Lymphocytes (%) (Auto) 10 L 19 12-44 % Monocytes (%) (Auto) 5 7 0-12 % Eosinophils (%) (Auto) 0 0 0-10 % Basophils (%) (Auto) 0 0 0-10 % Neutrophils # (Auto) 13.7 H 8.0 H 1.8-7.8 X 10^3 Lymphocytes # (Auto) 1.6 2.0 1.0-4.0 X 10^3 Monocytes # (Auto) 0.8 0.7 0.0-1.0 X 10^3 Eosinophils # (Auto) 0.0 0.0 0.0-0.3 10^3/uL Basophils # (Auto) 0.0 0.0 0.0-0.1 10^3/uL Neutrophils % (Manual) 76 % Lymphocytes % (Manual) 12 % Monocytes % (Manual) 6 % Eosinophils % (Manual) 0 % Basophils % (Manual) 0 % Band Neutrophils 6 % Blood Morphology Comment NORMAL Prothrombin Time 14.7 12.2-14.7 SEC INR Comment 1.1 0.8-1.4 Activated Partial Thromboplast Time 28 24-35 SEC Sodium Level 146 H 143 135-145 MMOL/L Potassium Level 3.4 L 4.2 3.6-5.0 MMOL/L Chloride Level 105 114 H 98-107 MMOL/L Carbon Dioxide Level 23 18 L 21-32 MMOL/L Anion Gap 18 H 11 5-14 MMOL/L Blood Urea Nitrogen 8 10 7-18 MG/DL Creatinine 1.18 0.91 0.60-1.30 MG/DL Estimat Glomerular Filtration Rate > 60 > 60 BUN/Creatinine Ratio 7 11 Glucose Level 135 H 83 70-105 MG/DL Calcium Level 9.6 8.1 L 8.5-10.1 MG/DL Magnesium Level 2.1 1.8-2.4 MG/DL Total Bilirubin 0.2 0.4 0.1-1.0 MG/DL Aspartate Amino Transf (AST/SGOT) 20 14 5-34 U/L Alanine Aminotransferase (ALT/SGPT) 14 8 0-55 U/L Alkaline Phosphatase 71 53 40-136 U/L Total Protein 7.9 5.8 L 6.4-8.2 GM/DL Albumin 4.8 H 3.6 3.2-4.5 GM/DL Amylase Level 43 25-125 U/L Lipase 12 8-78 U/L TSH [place] Testing 0.65 0.35-4.94 UIU/ML Salicylates Level < 5.0 L 5.0-20.0 MG/DL Acetaminophen Level < 10 L 10-30 UG/ML Serum Alcohol 71 H <10 MG/DL Urine Color YELLOW Urine Clarity CLEAR Urine pH 8 5-9 Urine Specific [place] 1.010 L 1.016-1.022 Urine Protein 2+ H NEGATIVE Urine Glucose (UA) NEGATIVE NEGATIVE Urine Ketones 1+ H NEGATIVE Urine Nitrite NEGATIVE NEGATIVE Urine Bilirubin 2+ H NEGATIVE Urine Urobilinogen 1 NORMAL MG/DL Urine Leukocyte Esterase 1+ H NEGATIVE Urine RBC (Auto) NEGATIVE NEGATIVE Urine RBC RARE /HPF Urine WBC 0-2 /HPF Urine Squamous Epithelial Cells 0-2 /HPF Urine Crystals NONE /LPF Urine Bacteria NONE /HPF Urine Casts NONE /LPF Urine Mucus NEGATIVE /LPF Urine Culture Indicated NO Urine Opiates Screen NEGATIVE NEGATIVE Urine Oxycodone Screen NEGATIVE NEGATIVE Urine Methadone Screen NEGATIVE NEGATIVE Urine Propoxyphene Screen NEGATIVE NEGATIVE Urine Barbiturates Screen POSITIVE H NEGATIVE Ur Tricyclic Antidepressants Screen NEGATIVE NEGATIVE Urine Phencyclidine Screen NEGATIVE NEGATIVE Urine Amphetamines Screen NEGATIVE NEGATIVE Urine Methamphetamines Screen NEGATIVE NEGATIVE Urine Benzodiazepines Screen NEGATIVE NEGATIVE Urine Cocaine Screen NEGATIVE NEGATIVE Urine Cannabinoids Screen POSITIVE H NEGATIVE Radiology Date of Exam: 11/02/17 CHEST 1 VIEW, AP/PA ONLY INDICATION: Drug overdose EXAM: Portable chest at 7:56 PM FINDINGS: Heart size and pulmonary vascularity are normal. Lungs are clear. There are no effusions or pneumothoraces. IMPRESSION: Negative chest. Date of Exam: 11/02/17 CT CHEST/ABDOMEN/PELVIS W PROCEDURE: CT chest, abdomen, and pelvis with contrast. TECHNIQUE: Multiple contiguous axial images were obtained through the chest, abdomen, and pelvis after the administration of intravenous contrast. INDICATION: Overdose. COMPARISON: No prior studies are available for comparison. CT CHEST: No axillary lymphadenopathy is detected. No hilar or mediastinal lymphadenopathy is seen. No pericardial or pleural fluid is detected. No parenchymal infiltrate, nodule, or mass is seen. There is no pneumothorax identified. The bony structures appear nonacute. IMPRESSION: Unremarkable CT of the chest. CT ABDOMEN AND PELVIS: The liver and spleen are unremarkable. No adrenal mass is detected. The kidneys are unremarkable. The aorta is nonaneurysmal. The small and large bowel loops are normal in caliber. No obstruction is identified. No inflammatory process is seen. There is no ascites. The bladder is unremarkable. The bony structures are nonacute. IMPRESSION: Unremarkable CT of the abdomen and pelvis. Physical Exam-(CHC) Physical Exam Vital Signs VS - Last 72 Hours, by Label 11/02/17 11/02/17 11/02/17 11/02/17 18:27 20:50 21:00 21:15 Temp 96.5 Pulse 106 89 87 Resp 18 20 17 B/P (MAP) 135/91 (106) 110/64 122/75 (91) Pulse Ox 95 92 98 91 O2 Delivery Room Air Room Air Room Air Room Air 11/02/17 11/02/17 11/02/17 11/03/17 21:27 22:00 23:00 00:00 Temp 98.2 Pulse 95 97 86 Resp 11 17 B/P (MAP) 119/76 (90) 122/72 (89) Pulse Ox 95 94 O2 Delivery Room Air Room Air 11/03/17 11/03/17 11/03/17 11/03/17 00:00 00:06 01:00 01:00 Pulse 81 81 81 Resp 18 8 B/P (MAP) 116/68 (84) 125/73 (90) Pulse Ox 94 94 95 O2 Delivery Room Air Room Air Room Air 11/03/17 11/03/17 11/03/17 11/03/17 02:00 03:00 04:00 04:00 Pulse 74 73 68 Resp 16 36 16 B/P (MAP) 122/77 (92) 123/75 (91) 128/88 (101) Pulse Ox 96 95 94 98 O2 Delivery Room Air Room Air Room Air Room Air 11/03/17 11/03/17 11/03/17 11/03/17 05:00 06:00 07:00 08:00 Temp 97.8 Pulse 64 58 63 B/P (MAP) 142/100 (114) 140/85 (103) Pulse Ox 96 96 O2 Delivery Room Air Room Air Room Air 11/03/17 08:00 O2 Delivery Room Air Capillary Refill : Less Than 3 Seconds General Appearance: WD/WN, no apparent distress Eyes: Bilateral Eye Normal Inspection HEENT: normal ENT inspection; No scleral icterus (R), No scleral icterus (L), No photophobia Neck: non-tender, full range of motion, supple, normal inspection Respiratory: chest non-tender, lungs clear, normal breath sounds, no respiratory distress, no accessory muscle use; No crackles, No rales, No rhonchi , No stridor, No wheezing Cardiovascular: normal peripheral pulses, regular rate, rhythm (NSR per telemetry, rate 70's), no edema, no gallop, no JVD, no murmur Peripheral Pulses: 2+ Dorsalis Pedis (R), 2+ Left Dors-Pedis (L), 2+ Radial Pulses (R), 2+ Radial Pulses (L) Gastrointestinal: normal bowel sounds, non tender, soft, no organomegaly, no pulsatile mass Rectal: deferred Back: normal inspection, no CVA tenderness, no vertebral tenderness Extremities: normal range of motion, non-tender, normal inspection, no pedal edema, no calf tenderness Neurologic/Psychiatric: accreditation coordinator II-XII nml as tested, no motor/sensory deficits, alert, normal mood/affect, oriented x 3, other (denies suicidal thoughts, intention or plans) Skin: normal color, warm/dry Lymphatic: no adenopathy Assessment/Plan Assessment/Plan Admission Dx Overdose GI Bleed Admission Status: Inpatient Order (span 2 midnights) Reason for Inpatient Admission: monitoring and treatment of admission diagnosis (1) Overdose of nonsteroidal anti-inflammatory drug (NSAID) Status: Acute Assessment & Plan: 11/03 -pt denies suicidal intent, family members last night told ED staff that they believed pt had suicidal intent and pt was refusing to speak with ED staff -pt pleasant and conversant this morning, denies any thoughts of suicide or self harm, reports he took aleve for pain, but is still very vague about the amount that was taken Qualifiers: Qualified Codes: T39.394A - Poisoning by other nonsteroidal anti- inflammatory drugs [nsaid], undetermined, initial encounter (2) GI bleed Status: Acute Assessment & Plan: 11/03 -seen by Dr. Hernandez this morning; plans medical management and will follow up with patient in the office -likely secondary to NSAID overdose -pt without any further hematemesis and no complaints of abdominal pain -will start on PO pantoprazole, stop gtt and IV fluids -advance to regular diet -if able to tolerate diet without pain, will plan to discharge later this afternoon with close office follow up Qualifiers: Qualified Codes: K92.2 - Gastrointestinal hemorrhage, unspecified (3) Alcohol ingestion Status: Acute Assessment & Plan: 11/03 -pt reported having 3-4 shots yesterday morning -this morning when asked denies having problems with alcohol abuse (4) Illicit drug use Status: Acute Assessment & Plan: 11/03 -UDS positive for barbiturates and THC (5) Bipolar disorder Status: Chronic Assessment & Plan: 11/03 -pt has not been seen in clinic since Jan 2017 -patient would like to re-establish care at the clinic and restart his bipolar medication -anticipate discharge later this afternoon if able to tolerate PO diet -will discharge on medications that patient was previously on with close clinic follow up -pt denies any thoughts of suicide or self harm Qualifiers: Qualified Codes: F31.9 - Bipolar disorder, unspecified (6) Medical non-compliance Status: Chronic Clinical Quality Measures DVT/VTE Risk/Contraindication: Risk Factor Score Per Nursin RFS Level Per Nursing on Admit: 1=Low/No VTE PPX Copy Copies To 1: [facility]/KATY BOWIE DO November 03, 2017 09:51
[2017-11-03] MEDS ORDERED: CALCIUM CARBONATE 500 MG (TUMS) TAB.CHEW PO PRN (11:00)
--- NOTE | 2017-11-03 13:16 | Discharge Summary ---
Diagnosis/Chief Complaint Date of Admission November 02, 2017 at 20:40 Date of Discharge Admission Diagnosis Admission Diagnosis Overdose GI Bleed Discharge Diagnosis (1) Overdose of nonsteroidal anti-inflammatory drug (NSAID) Status: Acute Assessment & Plan: 11/03 -pt denies suicidal intent, family members last night told ED staff that they believed pt had suicidal intent and pt was refusing to speak with ED staff -pt pleasant and conversant this morning, denies any thoughts of suicide or self harm, reports he took aleve for pain, but is still very vague about the amount that was taken Qualifiers: Qualified Codes: T39.394A - Poisoning by other nonsteroidal anti- inflammatory drugs [nsaid], undetermined, initial encounter (2) GI bleed Status: Acute Assessment & Plan: 11/03 -seen by Dr. Hernandez this morning; plans medical management and will follow up with patient in the office -likely secondary to NSAID overdose -pt without any further hematemesis and no complaints of abdominal pain -will start on PO pantoprazole, stop gtt and IV fluids -advance to regular diet -if able to tolerate diet without pain, will plan to discharge later this afternoon with close office follow up Qualifiers: Qualified Codes: K92.2 - Gastrointestinal hemorrhage, unspecified (3) Alcohol ingestion Status: Acute Assessment & Plan: 11/03 -pt reported having 3-4 shots yesterday morning -this morning when asked denies having problems with alcohol abuse (4) Illicit drug use Status: Acute Assessment & Plan: 11/03 -UDS positive for barbiturates and THC (5) Bipolar disorder Status: Chronic Assessment & Plan: 11/03 -pt has not been seen in clinic since Jan 2017 -patient would like to re-establish care at the clinic and restart his bipolar medication -anticipate discharge later this afternoon if able to tolerate PO diet -will discharge on medications that patient was previously on with close clinic follow up -pt denies any thoughts of suicide or self harm Qualifiers: Qualified Codes: F31.9 - Bipolar disorder, unspecified (6) Medical non-compliance Status: Chronic Chief Complaint/HPI Chief Complaint/HPI Pt presented to ED via EMS yesterday after being called by family member. Patient has history of intentional overdose. Appears that he took an unknown - but likely significant - number of OTC aleve tablets; large, brand new bottle was found and was empty. Patient initially stated he took a couple because he had dental pain, around 0800. Later stated he took more than just a couple but not too many with a few shots of alcohol. Around 1000 family members report pt began complaining of abdominal pain. EMS was called later in the afternoon when it did not resolve. EMS had about 150 cc hematemesis, the patient had about the same amount in the ED. Admitted for suicidal ideation as well as evaluation for suspected GI bleed. When brought in by EMS was also accompanied by Román LOZANO, who requests to know when patient is discharged. When seen in the ICU the patient reports he is feeling much better. He denies feeling suicidal or having any plans to hurt himself and denies taking the Aleve as a suicidal gesture yesterday. He is hungry and would like to eat. He would also like to be restarted on his previous psych medications. Discharge Summary-Simple/Stand Consultations Dr. Hernandez, General Surgery Discharge Physical Examination Allergies: Coded Allergies: No Known Drug Allergies (Unverified , 04/06/13) Vitals & I&Os Vital Sign - Last 12Hours Date Time Temp Pulse Resp B/P (MAP) Pulse Ox O2 Delivery O2 Flow Rate FiO2 11/03/17 12:00 Room Air 11/03/17 11:00 63 153/104 (120) 98 11/03/17 08:00 97.8 11/03/17 04:00 16 Hospital Course See final discharge diagnosis. Radiology Reviewed Date of Exam: 11/02/17 CHEST 1 VIEW, AP/PA ONLY INDICATION: Drug overdose EXAM: Portable chest at 7:56 PM FINDINGS: Heart size and pulmonary vascularity are normal. Lungs are clear. There are no effusions or pneumothoraces. IMPRESSION: Negative chest. Date of Exam: 11/02/17 CT CHEST/ABDOMEN/PELVIS W PROCEDURE: CT chest, abdomen, and pelvis with contrast. TECHNIQUE: Multiple contiguous axial images were obtained through the chest, abdomen, and pelvis after the administration of intravenous contrast. INDICATION: Overdose. COMPARISON: No prior studies are available for comparison. CT CHEST: No axillary lymphadenopathy is detected. No hilar or mediastinal lymphadenopathy is seen. No pericardial or pleural fluid is detected. No parenchymal infiltrate, nodule, or mass is seen. There is no pneumothorax identified. The bony structures appear nonacute. IMPRESSION: Unremarkable CT of the chest. CT ABDOMEN AND PELVIS: The liver and spleen are unremarkable. No adrenal mass is detected. The kidneys are unremarkable. The aorta is nonaneurysmal. The small and large bowel loops are normal in caliber. No obstruction is identified. No inflammatory process is seen. There is no ascites. The bladder is unremarkable. The bony structures are nonacute. IMPRESSION: Unremarkable CT of the abdomen and pelvis. Discharge Condition at discharge stable Instructions to patient/family Please see electronic discharge instructions given to patient. Discharge Medications Reviewed and agree with Discharge Medication list on patient's Discharge Instruction sheet Clinical Quality Measures DVT/VTE Risk/Contraindication: Risk Factor Score Per Nursin RFS Level Per Nursing on Admit: 1=Low/No VTE PPX Copy Copies To 1: [facility]/HOLLI BOWIE DO November 03, 2017 13:16
[2017-11-03] MEDS ORDERED: DIVA500T15 PO (13:20)
[2017-11-03] MEDS ORDERED: GUAN1TAB28 PO (13:20)
[2017-11-03] MEDS ORDERED: PANT40TA3 PO (13:20)
--- NOTE | 2017-11-03 13:25 | Discharge Instructions ---
Discharge [facility] [place] Discharge Medications New, Converted or Re-Newed RX: Transmitted to Pharmacy New Medications: Guanfacine HCl (Guanfacine HCl ER) 1 Mg Tab.er.24h 1 MG PO HS for 30 Days, #30 TAB Divalproex Sodium (Divalproex Sodium ER) 500 Mg Tab.er.24h 500 MG PO HS for 30 Days, #30 TAB Pantoprazole Sodium (Pantoprazole Sodium) 40 Mg Tablet.dr 40 MG PO DAILY@0700 for 30 Days, #30 TAB Patient Instructions Patient Instructions -take medications as prescribed -no NSAIDS for at least one month while stomach heals -keep follow up appt as scheduled Goal/Follow Up Appt: 11/08/17 at 2:00 PM with Tammi Huggins APRN Return to The Hospital For: chest pain or pressure, shortness of breath, nausea or vomiting that makes you unable to keep down clear liquids or medications for more than 24 hours, fever >101 that does not come down with tylenol, if directed by litigation counsel provider, or any other emergent complaints or concerns Activity & Diet Discharge Diet: No Restrictions Activity as Tolerated: Yes Copy Copies To 1: [facility]/HOLLI BOWIE DO November 03, 2017 13:25
[2017-11-03] MEDS ORDERED: DIVALPROEX EXT RELEASE 500 MG (DEPAKOTE ER) TAB PO SCH (21:00)
[2017-11-04] MEDS ORDERED: PANTOPRAZOLE 40 MG (PROTONIX) TAB PO SCH (07:00)
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
== END 2017-11-03 13:52 | disposition home or self-care (01) | DRG 918 ==
LOC: EDUNIT# 18:20 → ER 18:20 → ICU 20:40
PROVIDERS: ADMIT Family Medicine; ATTEND Family Medicine
DX: T39.312A Poisoning by propionic acid derivatives, intentional self-harm, initial encounter (principal); T51.0X2A Toxic effect of ethanol, intentional self-harm, initial encounter; K92.0 Hematemesis; R00.0 Tachycardia, unspecified; J45.909 Unspecified asthma, uncomplicated; R10.13 Epigastric pain; F12.90 Cannabis use, unspecified, uncomplicated; F19.90 Other psychoactive substance use, unspecified, uncomplicated; F17.210 Nicotine dependence, cigarettes, uncomplicated; F31.9 Bipolar disorder, unspecified; F60.9 Personality disorder, unspecified; Z91.5 Personal history of self-harm; Z91.19 Patient's noncompliance with other medical treatment and regimen
CPT/HCPCS: 36415; 71045; 71260; 74177; 80053; 80306; 80320; 80329; 81000; 82150; 83690; 83735; 84443; 85007; 85018; 85025; 85027; 85610; 85730; 86850; 86900; 86901; 87081; 93005; 93041; 96374; 96375

== ENCOUNTER 2018-05-16 11:04 | Observation (INO) | payer MEDICARE, MEDICAID ==
[~2018-05-16] VITALS: Ht 172.7 cm; Wt 59.1 kg
[2018-05-16] VITALS (11 sets, daily range): BP systolic 98–126; BP diastolic 68–90
[~2018-05-16 11:04] MED LIST changes: +AMOX-358 PO; +DIVA500T15 PO; +GUAN1TAB21 PO; +GUAN1TAB28 PO; +PANT40TA3 PO
--- OUTSIDE RECORDS SUMMARY | 2018-05-16 11:10 | XMS REPORT ---
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 Name Role Phone SERGE LANDIN Unavailable PROBLEMS Type Condition ICD9-CM Code COW75-II Code Onset Dates Condition Status SNOMED Code Problem Fever, unspecified 780.60 Active 802903665 Problem ADHD (attention deficit hyperactivity disorder), inattentive type F90.0 Active 91080473 Problem Acute bronchitis 466.0 Active 72477006 Problem Encounter for long-term (current) use of other medications V58.69 Active 143385719 Problem Vomiting alone 787.03 Active 619813847 Problem Cough 786.2 Active 41848035 Problem Cannabis abuse F12.10 Active 76831281 Problem Non-adherence to medical treatment Z91.19 Active 242911336 Problem Social phobia, generalized F40.11 Active 43923607 Problem Bipolar affective disorder F31.9 Active 74647467 Problem Bipolar I disorder F31.9 Active 534211275 Problem Cannabis use disorder, mild, abuse F12.10 Active 80183341 ALLERGIES No Information ENCOUNTERS Encounter Location Date Diagnosis [facility] [id number] [place] [address] 26145- 0193 Feb, [facility] [id number] [place] [address] 96632- 1059 Jan, [facility] [id number] [place] [address] [id number] Dec, Dental examination Z01.20 [facility] [id number] [place] [address] 14041- 6315 Nov, Bipolar I disorder F31.9 ; ADHD (attention deficit hyperactivity disorder), inattentive type F90.0 ; Cannabis use disorder, mild, abuse F12.10 and Non-adherence to medical treatment Z91.19 [facility] [id number] [address] October, [facility] [id number] [place] [address] 44187- 5991 October, [facility] [id number] [place] [address] 73398- 3728 Jan, Bipolar affective disorder F31.9 ; Social phobia, generalized F40.11 ; Cannabis use disorder, mild, abuse F12.10 and ADHD ( attention deficit hyperactivity disorder), inattentive type F90.0 [facility] [id number] [place] [address] 18235 -1591 Dec, [facility] [id number] [place] [address] 30234 -0161 Nov, Sexually transmitted disease exposure Z20.2 [place] [id number] [place] [address] 53545- 8763 Nov, Bipolar I disorder F31.9 ; Cannabis use disorder, mild, abuse F12.10 ; Social phobia, generalized F40.11 and ADHD (attention deficit hyperactivity disorder), inattentive type F90.0 [facility] [id number] [place] [address] [id number] October, Dental examination Z01.20 [facility] [id number] [place] [address] 75066- 9077 Aug, [facility] [address] [place] [address] 33903- 1726 Jun, [facility] [id number] [place] [address] 05448- 1847 May, [facility] [id number] [place] [address] 46063- 8862 May, Bipolar affective disorder F31.9 ; ADHD (attention deficit hyperactivity disorder), combined type F90.2 ; Social phobia F40.10 and Oppositional defiant behavior F91.3 [facility] [id number] [place] [address] 15551- 6701 Apr, [facility] [address] 6[address] Apr, ADHD (attention deficit hyperactivity disorder), combined type F90.2 ; Social phobia F40.10 and Bipolar affective disorder F31.9 [facility] [address] [address] Feb, Bipolar disorder, unspecified 296.80 ; Social phobia 300.23 and Attention deficit disorder of childhood without mention of hyperactivity 314.00 [facility] [address] [address] 45[address] Sep, [facility] [id number] [place] [address] 28546- 7045 Sep, [facility] [id number] [address] 87[address] October, [facility] [address] [address] 3[address] October, [facility] [address] [address] 3644 Sep, [facility] [address] [address] 55[address] Sep, [facility] [address] [place] [address] 2310 Sep, [facility] [address] [place] [address] 2[address] Aug, [facility] [address] [place] [address] 0108 Aug, [facility] [address] [place] [address] 8521 Jul, [facility] [address], [place] [address] 5982 Jul, [facility] [address], [place] [address] 4826 Jul, [facility] [address] 57[address] Jul, [facility] [address] 67[address] Jun, [facility] [address] 3[address] Jun, [facility] [address] [address] May, [facility] [address] [place] [address] 9343 May, [facility] [address], [place] [address]- 8639 Apr, [facility] [address], [place] [address]- 4771 Apr, [facility] [address], [place] [address] 8261 Aug, [facility] [id number], [place] [address] Jul, [facility] [id number], [place] [address]- 7703 Jun, [facility] [id number], [place] [address]- 6209 Jun, [facility] [id number], [place] [address] 8548 May, [facility] [id number] [address]80 May, IMMUNIZATIONS No Known Immunizations SOCIAL HISTORY Never Assessed REASON FOR VISIT TCM call/med list update PLAN OF CARE VITAL SIGNS MEDICATIONS Medication Instructions Dosage Frequency Start Date End Date Duration Status GuanFACINE HCl ER 1 MG Orally Once a day at hs 1 tablet Not- Taking Pantoprazole Sodium 40 mg Orally Once a day 1 tablet 24h Not- Taking Augmentin 875-125 MG Orally every 12 hrs 1 tablet 12h Jan,Jan Active Depakote ER 500 mg Orally at bedtime for mood 1 tablet Nov, Active Divalproex Sodium ER 500 mg Orally Once a day at hs 1 tablet Not -Taking Intuniv 1 MG Orally at bedtime for [...] Medical History Oppositional defiant behavior Hospitalization History [facility] 01/2015 Hospitalization History [facility] 10/2016 Hospitalization History [facility] 06/2015 Hospitalization History Overdose 2017
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
[2018-05-16 11:18] LABS: BASOPHILS % (AUTO) 0 % (0-10); EOSINOPHILS # (AUTO) 0.1 10^3/uL (0.0-0.3); EOSINOPHILS % (AUTO) 0 % (0-10); HEMATOCRIT 46 % (40-54); HEMOGLOBIN 16.5 G/DL (13.3-17.7); LYMPHOCYTES # (AUTO) 1.8 X 10^3 (1.0-4.0); LYMPHOCYTES % (AUTO) 14 % (12-44); MEAN CORPUSCULAR HEMOGLOBIN 33 PG (25-34); MEAN CORPUSCULAR HGB CONC 36 G/DL (32-36); MEAN CORPUSCULAR VOLUME 92 FL (80-99); MEAN PLATELET VOLUME 10.1 FL (7.4-10.4); MONOCYTES # (AUTO) 0.8 X 10^3 (0.0-1.0); MONOCYTES % (AUTO) 7 % (0-12); NEUTROPHILS # (AUTO) 10.2 X 10^3 (1.8-7.8); NEUTROPHILS % (AUTO) 79 % (42-75); PLATELET COUNT 254 10^3/uL (130-400); RED BLOOD COUNT 4.97 10^6/uL (4.35-5.85); RED CELL DISTRIBUTION WIDTH 12.3 % (10.0-14.5); WHITE BLOOD COUNT 12.9 10^3/uL (4.3-11.0)
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
[2018-05-16 11:45] LABS: ACETAMINOPHEN < 10 UG/ML (10-30); ALANINE AMINOTRANSFERASE 17 U/L (0-55); ALBUMIN 4.8 GM/DL (3.2-4.5); ALKALINE PHOSPHATASE 58 U/L (40-136); BILIRUBIN,TOTAL 1.1 MG/DL (0.1-1.0); BUN/CREATININE RATIO 13; CALCIUM 9.9 MG/DL (8.5-10.1); CARBON DIOXIDE 20 MMOL/L (21-32); CHLORIDE 103 MMOL/L (98-107); CREATININE SERUM 1.19 MG/DL (0.60-1.30); GFR ESTIMATED > 60; GLUCOSE 106 MG/DL (70-105); POTASSIUM 3.4 MMOL/L (3.6-5.0); SALICYLATE < 5.0 MG/DL (5.0-20.0); SODIUM 139 MMOL/L (135-145); TOTAL PROTEIN 7.7 GM/DL (6.4-8.2)
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
[2018-05-16] MEDS ORDERED: CATHETER FLUSH 10 ML SYR IV PRN (13:00)
[2018-05-16] MEDS ORDERED: LORazepam INJ 2 MG/ML (ATIVAN) VIAL IV PRN (13:00)
[2018-05-16] MEDS: NS IV 1000 ML 1,000 ML IV SCH ×2 (14:54→22:52)
[2018-05-16] MEDS ORDERED: GUAN1TAB28 PO (15:04)
--- NOTE | 2018-05-16 17:51 | Consultation-Cardiology ---
HPI-Cardiology Cardiology Consultation: Date of Consultation 05/16/18 Date of Admission Attending Physician Janae Valenzuela DO Admitting Physician [place] Consulting Physician Rajwinder GONZALEZ MD HPI: Time Seen by a Provider: 16:00 Chief Complaint: Suicidal attempt with Seroquel This is a 23-year-old male with no previous past medical or cardiac history. He overdosed on seroquel. Initial EKG is sinus rhythm with no significant prolongation of QT interval. Review of Systems-Cardiology Review of Systems Constitutional: As described under HPI; No As described under HPI, No no symptoms reported, No chills, No fever, No lightheadedness Eyes: No As described under HPI, No no symptoms reported, No blindness, No blurred vision, No contact lenses, No drainage, No decreased acuity, No foreign body sensation, No pain, No vision change Ears/Nose/Throat: No As described under HPI, No no symptoms reported, No chronic hearing loss, No ear discharge, No ear pain, No nasal drainage, No ulcerations Respiratory: No no symptoms reported; As described under HPI; No As described under HPI, No cough, No orthopnea, No shortness of breath, No SOB with excertion Cardiovascular: No no symptoms reported; As described under HPI; No As described under HPI, No chest pain, No edema, No irregular heart rate, No lightheadedness, No palpitations Gastrointestinal: No no symptoms reported, No As described under HPI, No abdomen distended, No abdominal pain, No blood streaked bowels, No constipation , No diarrhea, No nausea, No vomiting, No stool coloration changes Genitourinary: No As described under HPI, No burning, No dysuria, No discharge , No frequency, No flank pain, No hematuria, No urgency Skin: No rash, No skin related problems, No ulcerations Psychiatric/Neurological: no symptoms reported, depression; No anxiety, No seizure, No focal weakness, No syncope Hematologic: No bleeding abnormalities [id number]-Vizqhx-Odekkq Hx Patient Social History Alcohol Use: Occasionally Uses Recreational Drug Use: Yes Drug of Choice: THC Type Used: Cigarettes 2nd Hand Smoke Exposure: Yes Recent Foreign Travel: No Recent Infectious Disease Expo: No Hospitalization with Isolation: Denies Immunizations Up To Date Tetanus Booster (TDap): Unknown Past Medical History PMH As described under Assessment. Allergies and Home Medications Allergies Coded Allergies: strawberry (Verified Allergy, Unknown, 02/06/18) Home Medications Divalproex Sodium 500 Mg Tab.er.24h, 500 MG PO HS, (Reported) Guanfacine HCl 1 Mg Tab.er.24h, 1 MG PO DAILY, (Reported) Patient Home Medication List Home Medication List Reviewed: Yes Physical Exam-Cardiology Physical Exam Vital Signs/I&O 05/16/18 05/16/18 05/16/18 05/16/18 11:07 12:35 12:35 13:11 Temp 98.6 97.3 98.6 Pulse 90 110 92 Resp 06 07 18 B/P (MAP) 117/91 (100) 119/90 (100) 116/79 (91) Pulse Ox 93 95 95 O2 Delivery Room Air Room Air Room Air Room Air 05/16/18 05/16/18 14:06 16:00 Pulse 108 Pulse Ox 95 O2 Delivery Room Air Capillary Refill : Less Than 3 Seconds Constitutional: appears stated age; No apparent distress; well-developed, well- nourished HEENT: PERRL; No normal ENT inspection, No TMs normal, No pharynx normal, No scleral icterus (R), No scleral icterus (L), No pale conjunctivae (R), No pale conjunctivae (L), No photophobia, No TM abnormal (R), No TM abnormal (L), No pharyngeal erythema, No tonsillar exudate, No other, No discharge, No EOMI; hearing is well preserved; No hard of hearing; oral hygience is good; No ulceration, No xanthelasmas are seen Neck: No non-tender, No full range of motion, No supple, No normal inspection, No carotid bruit, No limited range of motion, No lymphadenopathy (R), No lymphadenopathy (L), No tender lateral, No tender midline, No thyromegaly, No other; carotid pulses are 2 + bilaterally; No with good upstrokes Respiratory: No accessory muscle use, No respiratory distress, No chest tender , No chest expansion is symmetric; chest is bilaterally symmetric; No lungs clear to percussion; lungs clear to auscultation; No crackles, No rhonchi, No rales, No stridor, No wheezing, No pleural rub, No other Cardiovascular: regular rate-rhythm; No irregularly irregular, No extra beats, No parasternal heave is noted, No JVD, No edema, No bradycardia, No tachycardia , No point of maximal impulse, No cardiac thrills are palpable; S1 and S2; No gallop/S3, No gallop/S4, No diastolic murmur, No systolic murmur, No friction rub, No click, No other Gastrointestinal: No tender, No soft, No round, No distended, No pulsatile mass , No organomegaly, No guarding, No rebound, No tenderness, No hernia, No mass, No audible bowel sounds, No abnormal bowel sounds, No abdominal bruits, No spleenomegaly, No other Rectal: deferred Extremities: No normal range of motion, No non-tender, No normal inspection, No pedal edema, No calf tenderness, No normal capillary refill, No pelvis stable , No calf tenderness, No inflammation, No pedal edema, No slow capillary refill , No swelling, No other, No abrasion, No clubbing, No cyanosis, No ecchymosis, No laceration, No no lower extremity edema bilateral, No significant edema, No tenderness, No wound Neurologic/Psychiatric: no motor/sensory deficits, alert, normal mood/affect, oriented x 3, power is 5/5 both on sides Skin: No normal color, No warm/dry, No cyanosis, No cool, No diaphoresis, No damp, No ecchymosis, No jaundice, No mottled, No pallor, No rash, No tattoos/ piercings, No ulcerations, No rash on exposed areas, No ulcerations on exposed areas, No other Data Review Labs Laboratory Tests 05/16/18 11:10: White Blood Count 12.9H, Red Blood Count 4.97, Hemoglobin 16.5, Hematocrit 46, Mean Corpuscular Volume 92, Mean Corpuscular Hemoglobin 33, Mean Corpuscular Hemoglobin Concent 36, Red Cell Distribution Width 12.3, Platelet Count 254, Mean Platelet Volume 10.1, Neutrophils (%) (Auto) 79H, Lymphocytes (%) (Auto) 14 , Monocytes (%) (Auto) 7, Eosinophils (%) (Auto) 0, Basophils (%) (Auto) 0, Neutrophils # (Auto) 10.2H, Lymphocytes # (Auto) 1.8, Monocytes # (Auto) 0.8, Eosinophils # (Auto) 0.1, Basophils # (Auto) 0.0, Sodium Level 139, Potassium Level 3.4L, Chloride Level 103, Carbon Dioxide Level 20L, Anion Gap 16H, Blood Urea Nitrogen 15, Creatinine 1.19, Estimat Glomerular Filtration Rate > 60, BUN/ Creatinine Ratio 13, Glucose Level 106H, Calcium Level 9.9, Corrected Calcium , Total Bilirubin 1.1H, Aspartate Amino Transf (AST/SGOT) 20, Alanine Aminotransferase (ALT/SGPT) 17, Alkaline Phosphatase 58, Total Protein 7.7, Albumin 4.8H, Salicylates Level < 5.0L, Acetaminophen Level < 10L, Serum Alcohol < 10 ECG Impression ECG Initial ECG Rhythm: Normal Sinus Comment QTc interval 453 ms. A/P-Cardiology Assessment/Admission Diagnosis Seroquel overdose, Normal QTc, Suicidal attempt Plan Seroquel overdose, Normal QTc, Another EKG at 5.30pm today and then tomorrow am. Continue telemetry for 24 hours. Suicidal attempt, defer to primary team. Psychiatry evaluation. Thank you for your consultation. Please call me if you have any questions. Dony Gonzalez MD, FACP, FACC, FSCAI, FHRS, CCDS Interventional Cardiology Cardiac Electrophysiology Vascular Medicine and Endovascular Interventions Clinical Quality Measures DVT/VTE Risk/Contraindication: Risk Factor Score Per Nursin RFS Level Per Nursing on Admit: 1=Low/No VTE PPX Rajwinder GONZALEZ MD May 16, 2018 5:51 pm
[2018-05-16] MEDS ORDERED: FLU QUADRIvalent (5+ YOA) 2018-2019 (AFLURIA) 0.5 ML IM ONE (18:45)
[2018-05-16 21:43] LABS: AMPHETAMINE SCREEN, URINE NEGATIVE (NEGATIVE); BARBITURATE SCREEN URINE NEGATIVE (NEGATIVE); BENZODIAZEPINES SCREEN URINE NEGATIVE (NEGATIVE); CANNABINOID SCREEN, URINE POSITIVE (NEGATIVE); COCAINE SCREEN URINE NEGATIVE (NEGATIVE); METHADONE STAT NEGATIVE (NEGATIVE); METHAMPHETAMINE SCREEN URINE S NEGATIVE (NEGATIVE); OPIATE SCREEN URINE NEGATIVE (NEGATIVE); OXYCODONE STAT NEGATIVE (NEGATIVE); PROPOXYPHENE STAT NEGATIVE (NEGATIVE); TRICYCLIC ANTIDEPRESSANTS SCRE POSITIVE (NEGATIVE)
[2018-05-17] VITALS (12 sets, daily range): BP systolic 97–128; BP diastolic 58–94
[2018-05-17] MEDS: NS IV 1000 ML 1,000 ML IV SCH (07:00)
--- NOTE | 2018-05-17 09:31 | Cardiology Progress Note ---
Cardiology SOAP Progress Note Subjective: No cardiac complaints. Objective: I&O/Vital Signs 05/16/18 05/17/18 05/17/18 05/17/18 23:00 00:00 00:00 01:00 Temp 97.0 Pulse 90 90 79 Resp 12 14 15 B/P (MAP) 110/72 (85) 101/64 (76) 101/69 (80) Pulse Ox 96 96 94 O2 Delivery Room Air Room Air Room Air Room Air 05/17/18 05/17/18 05/17/18 05/17/18 01:00 02:00 03:06 04:00 Temp 98.0 Pulse 84 82 76 73 Resp 15 12 12 B/P (MAP) 97/58 (71) 100/69 (79) 100/74 (83) Pulse Ox 95 95 97 O2 Delivery Room Air Room Air 05/17/18 05/17/18 05/17/18 05/17/18 04:00 05:06 06:00 07:00 Pulse 69 77 70 Resp 12 12 B/P (MAP) 117/78 (91) 128/72 (90) Pulse Ox 98 98 O2 Delivery Room Air Room Air Room Air 05/17/18 05/17/18 08:00 08:59 Pulse Ox 96 O2 Delivery Room Air Room Air 05/16/18 23:59 Intake Total 1000 ml Output Total 600 ml Balance 400 ml Weight (Pounds): 130 Weight (Ounces): 6.0 Weight (Calculated Kilograms): [id number] Constitutional: appears stated age; No apparent distress; well-developed, well- nourished Respiratory: No accessory muscle use, No respiratory distress, No chest tender , No chest expansion is symmetric; chest is bilaterally symmetric; No lungs clear to percussion; lungs clear to auscultation; No crackles, No rhonchi, No rales, No stridor, No wheezing, No pleural rub, No other Cardiovascular: regular rate-rhythm; No irregularly irregular, No extra beats, No parasternal heave is noted, No JVD, No edema, No bradycardia, No tachycardia , No point of maximal impulse, No cardiac thrills are palpable; S1 and S2; No gallop/S3, No gallop/S4, No diastolic murmur, No systolic murmur, No friction rub, No click, No other Gastrointestional: No tender, No soft, No round, No distended, No pulsatile mass, No organomegaly, No guarding, No rebound, No tenderness, No hernia, No mass, No audible bowel sounds, No abnormal bowel sounds, No abdominal bruits, No spleenomegaly, No other Extremities: No normal range of motion, No non-tender, No normal inspection, No pedal edema, No calf tenderness, No normal capillary refill, No pelvis stable , No calf tenderness, No inflammation, No pedal edema, No slow capillary refill , No swelling, No other, No abrasion, No clubbing, No cyanosis, No ecchymosis, No laceration, No no lower extremity edema bilateral, No significant edema, No tenderness, No wound Neurologic/Psychiatric: no motor/sensory deficits, alert, normal mood/affect, oriented x 3, power is 5/5 both on sides Skin: No normal color, No warm/dry, No cyanosis, No cool, No diaphoresis, No damp, No ecchymosis, No jaundice, No mottled, No pallor, No rash, No tattoos/ piercings, No ulcerations, No rash on exposed areas, No ulcerations on exposed areas, No other Results/Procedures: Labs Laboratory Tests 05/16/18 11:10: White Blood Count 12.9H, Red Blood Count 4.97, Hemoglobin 16.5, Hematocrit 46, Mean Corpuscular Volume 92, Mean Corpuscular Hemoglobin 33, Mean Corpuscular Hemoglobin Concent 36, Red Cell Distribution Width 12.3, Platelet Count 254, Mean Platelet Volume 10.1, Neutrophils (%) (Auto) 79H, Lymphocytes (%) (Auto) 14 , Monocytes (%) (Auto) 7, Eosinophils (%) (Auto) 0, Basophils (%) (Auto) 0, Neutrophils # (Auto) 10.2H, Lymphocytes # (Auto) 1.8, Monocytes # (Auto) 0.8, Eosinophils # (Auto) 0.1, Basophils # (Auto) 0.0, Sodium Level 139, Potassium Level 3.4L, Chloride Level 103, Carbon Dioxide Level 20L, Anion Gap 16H, Blood Urea Nitrogen 15, Creatinine 1.19, Estimat Glomerular Filtration Rate > 60, BUN/ Creatinine Ratio 13, Glucose Level 106H, Calcium Level 9.9, Corrected Calcium , Total Bilirubin 1.1H, Aspartate Amino Transf (AST/SGOT) 20, Alanine Aminotransferase (ALT/SGPT) 17, Alkaline Phosphatase 58, Total Protein 7.7, Albumin 4.8H, Salicylates Level < 5.0L, Acetaminophen Level < 10L, Serum Alcohol < 10 05/16/18 20:55: Urine Opiates Screen NEGATIVE, Urine Oxycodone Screen NEGATIVE, Urine Methadone Screen NEGATIVE, Urine Propoxyphene Screen NEGATIVE, Urine Barbiturates Screen NEGATIVE, Ur Tricyclic Antidepressants Screen POSITIVEH, Urine Phencyclidine Screen NEGATIVE, Urine Amphetamines Screen NEGATIVE, Urine Methamphetamines Screen NEGATIVE, Urine Benzodiazepines Screen NEGATIVE, Urine Cocaine Screen NEGATIVE, Urine Cannabinoids Screen POSITIVEH A/P: Assessment/Dx: Seroquel overdose, Normal QTc, Suicidal attempt Plan: Seroquel overdose, Normal QTc, EKG done this morning shows QTc interval 431 ms which is normal. Normal telemetry overnight. No further cardiology workup required. Suicidal attempt, defer to primary team. Psychiatry evaluation. Thank you for your consultation. Please call me if you have any questions. Dony Gonzalez MD, FACP, FACC, FSCAI, FHRS, CCDS Interventional Cardiology Cardiac Electrophysiology Vascular Medicine and Endovascular Interventions Rajwinder GONZALEZ MD May 17, 2018 9:31 am
--- NOTE | 2018-05-17 09:51 | Short Stay Summary-Hospitalist ---
JANAE BERMEO DO 05/17/18 0951: History of Present Illness HPI/Chief Complaint CC: OD HPI: This is a 23yoWM clinic patient of [facility] and [facility] who presented to the ER after taking someone else's Seroquel to commit suicide. Patient has attempted to commit suicide twice before and has always sought mental health care following the attempts. Pt was deemed stable after closely monitored for increased QT interval to DC with close f/u with Odette Salinas at [facility]. Source: patient Exam Limitations: no limitations Date Seen 05/17/18 Time Seen by a Provider: 09:00 Attending Physician Janae Bermeo DO [facility] Referring Physician Date of Admission May 16, 2018 at 12:03 Home Medications & Allergies Home Medications Reviewed patient Home Medication Reconciliation performed by pharmacy medication reconciliations ski technician and/or nursing. Patients Allergies have been reviewed. Allergies Allergies Coded Allergies strawberry (Verified Allergy, Unknown, 02/06/18) Past Rnngymn-Hulmhc-Yxruls Hx Past Med/Social Hx: Reviewed Nursing Past Med/Soc Hx, Reviewed and Corrections made Patient Social History Marrital Status: single Employed/Student: unemployed Alcohol Use: Occasionally Uses Number of Drinks Today: AA Alcohol Beverage of Choice: Beer Recreational Drug Use: Yes Drug of Choice: THC Smoking Status: Current Everyday Smoker Type Used: Cigarettes 2nd Hand Smoke Exposure: Yes Physical Abuse Screen: No Sexual Abuse: No Recent Foreign Travel: No Contact w/other who traveled: No Recent Hopitalizations: No Recent Infectious Disease Expo: No Immunizations Up To Date Tetanus Booster (TDap): Unknown Seasonal Allergies Seasonal Allergies: No Past Medical History Currently Using CPAP: No Currently Using BIPAP: No Musculoskeletal: Back Injury, Fractures Psychosocial: Suicide Attempts, Bipolar, Personality Disorder, Violent Behavior , Depression History of Blood Disorders: No Adverse Reaction to Blood [place]: No Family History Patient reports no known family medical history. Heart Disease, Hypertension, Psychiatric Problems, Vascular Disease Review of Systems Constitutional: see HPI EENTM: no symptoms reported Respiratory: no symptoms reported Cardiovascular: no symptoms reported Gastrointestinal: no symptoms reported Genitourinary: no symptoms reported Musculoskeletal: no symptoms reported Skin: no symptoms reported Psychiatric/Neurological: Depressed All Other Systems Reviewed Negative Unless Noted: Yes Physical Exam Physical Exam Vital Signs Vital Signs - First Documented 05/16/18 11:07 Temp 98.6 Pulse 90 Resp 12 B/P (MAP) 117/91 (100) Pulse Ox 93 O2 Delivery Room Air Capillary Refill : Less Than 3 Seconds Height, Weight, BMI Height: 5'8.00" Weight: 130lbs. 6.0oz. [id number]; 19.2 BMI Method:Stated General Appearance: No Apparent Distress, WD/WN, Chronically ill Eyes: Bilateral Eye Normal Inspection, Bilateral Eye PERRL HEENT: PERRL/EOMI, TMs Normal, Normal ENT Inspection, Pharynx Normal Neck: Full Range of Motion, Normal Inspection, Non Tender, Supple, Carotid Bruit Respiratory: Chest Non Tender, Lungs Clear, Normal Breath Sounds, No Accessory Muscle Use, No Respiratory Distress Cardiovascular: Regular Rate, Rhythm, No Edema, No Gallop, No JVD, No Murmur, Normal Peripheral Pulses Gastrointestinal: Normal Bowel Sounds, No Organomegaly, No Pulsatile Mass, Non Tender, Soft Back: Normal Inspection, No CVA Tenderness, No Vertebral Tenderness Extremity: Normal Capillary Refill, Normal Inspection, Normal Range of Motion, Non Tender, No Calf Tenderness, No Pedal Edema Neurologic/Psychiatric: Alert, Oriented x3, No Motor/Sensory Deficits, Normal Mood/Affect Skin: Normal Color, Warm/Dry Lymphatic: No Adenopathy Results Results/Procedures Labs Laboratory Tests 05/16/18 11:10 Patient resulted labs reviewed. Short Stay Diagnosis Discharge Diagnosis-Short Stay Admission Diagnosis Assessment: OD on Seroquel without residual Plan: DC home Mental health appt soon Final Discharge Diagnosis OD on Seroquel Conclusion Plan DC home with mental health appt Diagnosis/Problems Diagnosis/Problems (1) Suicide attempt by other psychotropic drug overdose Status: Acute Qualifiers: Qualified Codes: T43.8X2A - Poisoning by other psychotropic drugs, intentional self-harm, initial encounter Clinical Quality Measures DVT/VTE Risk/Contraindication: Risk Factor Score Per Nursin RFS Level Per Nursing on Admit: 1=Low/No VTE PPX DUSTIN WATTS MED STUDENT 05/17/18 1021: History of Present Illness HPI/Chief Complaint CC: Overdose of quetiapine HPI: The patient was brought to the [facility] by EMS for suspected overdose of quetiapine. He states that he took 6-7 quetiapine pills yesterday morning and his girlfriend called the police. The police in turn called EMS to take him to the hospital. He has a previous history of multiple suicide attempts. He states that he does see someone with "the mental health clinic". He is relaxed and cooperative this morning and is asking when he will be allowed to leave. Source: patient Exam Limitations: no limitations Home Medications & Allergies Home Medications Home Medications: Depakote Intuniv Active Scripts Medications Dose Route/Sig Max Daily Dose Days Date Category Guanfacine HCl ER (Guanfacine HCl) 1 Mg Tab.er.24h 1 Mg PO DAILY 05/16/18 Reported Divalproex Sodium ER (Divalproex Sodium) 500 Mg Tab.er.24h 500 Mg PO HS 02/06/18 Reported Allergies Allergies: Amoxicillin Strawberries Past Zwtkvxb-Drztre-Ufwjjm Hx Patient Social History Marrital Status: single Alcohol Use: Occasionally Uses Alcohol Beverage of Choice: Beer Recreational Drug Use: Yes Smoking Status: Current Everyday Smoker 2nd Hand Smoke Exposure: Yes Seasonal Allergies Seasonal Allergies: No Past Medical History Musculoskeletal: Back Injury, Fractures Psychosocial: Suicide Attempts, Bipolar, Personality Disorder, Violent Behavior , Depression Family History Patient reports no known family medical history. Heart Disease, Diabetes, Hypertension, Psychiatric Problems, Vascular Disease Review of Systems Constitutional: no symptoms reported EENTM: no symptoms reported Respiratory: no symptoms reported Cardiovascular: no symptoms reported Gastrointestinal: no symptoms reported Musculoskeletal: no symptoms reported Skin: no symptoms reported Physical Exam Physical Exam General Appearance: No Apparent Distress, WD/WN Eyes: Bilateral Eye EOMI, Bilateral Eye Abnormal Pupil Respiratory: Chest Non Tender, Lungs Clear, Normal Breath Sounds, No Accessory Muscle Use, No Respiratory Distress Cardiovascular: Regular Rate, Rhythm, No Edema, No Gallop, No JVD, No Murmur Neurologic/Psychiatric: Alert, Oriented x3, No Motor/Sensory Deficits, Depressed Affect Skin: Normal Color, Warm/Dry Short Stay Diagnosis Discharge Diagnosis-Short Stay Admission Diagnosis Assessment: 1) quetiapine overdose Plan: 1) serial EKGs -monitor for QT prolongation and arrhythmias associated with quetiapine overdose JANAE BERMEO DO May 17, 2018 09:51 DUSTIN WATTS MED STUDENT May 17, 2018 10:21
[2018-05-17] MEDS ORDERED: GUANFACINE HCL 1 MG PO SCH (10:00)
[2018-05-17] MEDS ORDERED: DIVALPROEX EXT RELEASE 500 MG (DEPAKOTE ER) TAB PO SCH (21:00)
== END 2018-05-17 11:57 | disposition home or self-care (01) ==
LOC: EDUNIT# 11:04 → ER 11:05 → ICU 12:03 → UNDOADMOB 12:03 → ICU 12:35 → UNDODISOB 05-17 12:20
PROVIDERS: ADMIT Internal Medicine; ATTEND Internal Medicine
DX: T43.592A Poisoning by other antipsychotics and neuroleptics, intentional self-harm, initial encounter (principal); F31.9 Bipolar disorder, unspecified; F60.9 Personality disorder, unspecified; F17.210 Nicotine dependence, cigarettes, uncomplicated; Z79.899 Other long term (current) drug therapy
CPT/HCPCS: 36415; 80053; 80306; 80320; 80329; 85025; 93005; G0378

== ENCOUNTER 2018-10-30 16:29 | Inpatient (IN) | payer MEDICARE, MEDICAID ==
[~2018-10-30] VITALS: Ht 172.7 cm; Wt 69.4 kg
[2018-10-30] VITALS (10 sets, daily range): BP systolic 112–148; BP diastolic 88–111
--- NOTE | 2018-10-30 16:29 | NUR ---
Pt unable to answer questions for safey assessment.
[2018-10-30] MEDS ORDERED: LACTATED RINGERS 1,000 ML IV ONE ×2 (16:30→16:39)
--- OUTSIDE RECORDS SUMMARY | 2018-10-30 16:35 | XMS REPORT ---
Author Author Migration, Doctor Organization [facility] Address Unknown Phone Unavailable Care Team Providers Care Nitric Acid Concentrator Operator Name Role Phone Migration, Doctor Unavailable Unavailable PROBLEMS Type Condition ICD9-CM Code PDX85-FM Code Onset Dates Condition Status SNOMED Code Problem Encounter for long-term (current) use of other medications V58.69 Active 228967157 Problem Cough 786.2 Active 43374318 Problem Vomiting alone 787.03 Active 283366999 Problem Acute bronchitis 466.0 Active 16930785 Problem Fever, unspecified 780.60 Active 081633460 Problem Cannabis use disorder, mild, abuse F12.10 Active 82561584 Problem Bipolar I disorder F31.9 Active 837386765 Problem Social phobia, generalized F40.11 Active 26657927 Problem PTSD (post-traumatic stress disorder) F43.10 Active 90655119 Problem Bipolar affective disorder F31.9 Active 23336551 Problem Anxiety F41.9 Active 28432762 Problem ADHD (attention deficit hyperactivity disorder), inattentive type F90.0 Active 10349397 Problem Cannabis abuse F12.10 Active 83388572 Problem Non-adherence to medical treatment Z91.19 Active 953859336 Problem Chronic post-traumatic stress disorder (PTSD) F43.12 Active 818670035 Problem Bipolar affective disorder, currently depressed, moderate F31.32 Active [id number] ALLERGIES No Information ENCOUNTERS Encounter Location Date Diagnosis [facility] [id number] [address] Aug, Bipolar affective disorder F31.9 ; Bipolar affective disorder, currently depressed, moderate F31.32 ; Chronic post-traumatic stress disorder (PTSD) F43.12 and ADHD (attention deficit hyperactivity disorder), inattentive type F90.0 [facility] [address] [facility] [id number] [address] Jun, Bipolar affective disorder, currently depressed, moderate F31.32 ; Social phobia, generalized F40.11 and Chronic post-traumatic stress disorder (PTSD) F43.12 [place] [address] [facility] [id number] May, Anxiety F41.9 [facility] [id number] [place] [address]127- 6[address] May, [facility] [id number] [place] [address] 27817- 2870 Mar, [facility] [id number] [place] [address] 03719- 8467 Feb, Bipolar I disorder F31.9 ; ADHD (attention deficit hyperactivity disorder), inattentive type F90.0 ; Cannabis abuse F12.10 and Non- adherence to medical treatment Z91.19 [facility] [id number] [place] [address] Jan, [facility] [id number] [place] [id number] Dec, Dental examination Z01.20 [facility] [id number] [place] [address] 91891- 7290 19 Nov, 2017 Bipolar I disorder F31.9 ; ADHD (attention deficit hyperactivity disorder), inattentive type F90.0 ; Cannabis use disorder, mild, abuse F12.10 and Non-adherence to medical treatment Z91.19 [facility] [address] [address] October, [facility] [id number] [place] [address] 17884- 3371 October, [facility] [id number] [place] [address] 63464- 1620 Jan, Bipolar affective disorder F31.9 ; Social phobia, generalized F40.11 ; Cannabis use disorder, mild, abuse F12.10 and ADHD ( attention deficit hyperactivity disorder), inattentive type F90.0 [facility] [address] [place] [address] 6[address]87 [address]5626 Dec, [facility] [id number] [place] [address]179 -6877 Nov, Sexually transmitted disease exposure Z20.2 [facility] [address] [place] [address] 77838- 6070 Nov, Bipolar I disorder F31.9 ; Cannabis use disorder, mild, abuse F12.10 ; Social phobia, generalized F40.11 and ADHD (attention deficit hyperactivity disorder), inattentive type F90.0 [facility] [id number] [place] [id number] October, Dental examination Z01.20 [facility] [id number] [place] [address] 96206- 1084 Aug, [facility] [id number] [place] [address] 81007- 6261 Jun, [facility] [id number] [place] [address] 56014- 4153 May, [facility] [id number] [place] [address] 74084- 4958 May, Bipolar affective disorder F31.9 ; ADHD (attention deficit hyperactivity disorder), combined type F90.2 ; Social phobia F40.10 and Oppositional defiant behavior F91.3 [facility] [address] [place] [address]56- 6558 Apr, [facility] [address] [place] [address] 98417- 4690 Apr, ADHD (attention deficit hyperactivity disorder), combined type F90.2 ; Social phobia F40.10 and Bipolar affective disorder F31.9 [facility] [address] [place] [address] 97205- 5937 Feb, Bipolar disorder, unspecified 296.80 ; Social phobia 300.23 and Attention deficit disorder of childhood without mention of hyperactivity 314.00 [facility] [address] [place] [address] 58122- 0[address] Sep, [facility] [address] [place] [address] Sep, [facility] [address] [id number] [place] [address] October, [facility] [place] [facility] [address] [id number] [place] [address] October, [facility] [place] [facility] [address] [id number] [place] [address] 0119 Sep, [facility] [place] [facility] [address] [id number] [place] [address] 111[address] Sep, [facility] [place] [facility] [address] [id number] [place] [address] Sep, [facility] [place] [facility] [address] [id number] [place] [address] 1667 Aug, [facility] [place] [facility] [address] [id number] [place] [address] 2767 Aug, [facility] [place] [facility] [address] [id number] [place] [address] 5[address] Jul, [facility] [place] [facility] [address] [id number] [place] [address] 3[address] Jul, [facility] [place] [facility] [address] [id number] [place] [address] 1567 Jul, [facility] [place] [facility] [address] [id number] [place] [address] 0272 Jul, [facility] [place] [facility] [address] [id number] [place] [address] 1139 Jun, [facility] [place] [facility] [address] [id number] [place] [address] 4[address] Jun, [facility] [place] [facility] [address] [id number] [place] [address]- 7099 May, [facility] [place] [facility] [address] [id number] [place] [address]- 0048 May, [facility] [address] [facility] [id number] [address] Apr, [facility] [id number] [address] Apr, [facility] [id number], [place] [address] Aug, [facility] [address], [place] [address] Jul, [facility] [id number], [place] [address] Jun, [facility] [id number] [address] 49[address] Jun, [facility] [id number] [address]6 May, [facility] [id number], [place] [address]6 May, IMMUNIZATIONS No Known Immunizations SOCIAL HISTORY Never Assessed [place] [place] VITAL SIGNS MEDICATIONS Unknown [...] [facility] 01/2015 Hospitalization History [facility] 10/2016 Hospitalization History [place] 06/2015 Hospitalization History Overdose 2017 Hospitalization History via [facility]RIEN 01/2018
--- OUTSIDE RECORDS SUMMARY | 2018-10-30 16:35 | XMS REPORT ---
Author Author MARIOLA PRATT Organization [facility] Address [address] [place] [address] Care Team Providers Care Multimedia Developer Name Role Phone MARIOLA PRATT Unavailable PROBLEMS Type Condition ICD9-CM Code KRU21-VQ Code Onset Dates Condition Status SNOMED Code Problem Fever, unspecified 780.60 Active 215265517 Problem ADHD (attention deficit hyperactivity disorder), inattentive type F90.0 Active 02453252 Problem Acute bronchitis 466.0 Active 61833028 Problem Encounter for long-term (current) use of other medications V58.69 Active 929004412 Problem Vomiting alone 787.03 Active 760702226 Problem Cough 786.2 Active 38046002 Problem Cannabis abuse F12.10 Active 61012546 Problem Non-adherence to medical treatment Z91.19 Active 081992552 Problem Social phobia, generalized F40.11 Active 15687315 Problem Bipolar affective disorder F31.9 Active 30848146 Problem Bipolar I disorder F31.9 Active 285768178 Problem Cannabis use disorder, mild, abuse F12.10 Active 37368958 ALLERGIES No Information ENCOUNTERS Encounter Location Date Diagnosis [address] [place] [address]018- 2212 Jun, [facility] [id number] [place] [address] 79102- 4590 May, [facility] [id number] [place] [address] 07651- 9661 Mar, [place] [address] [address]- [address] Feb, Bipolar I disorder F31.9 ; ADHD (attention deficit hyperactivity disorder), inattentive type F90.0 ; Cannabis abuse F12.10 and Non- adherence to medical treatment Z91.19 [facility] [address] [address]- [address] Jan, [facility] [id number] [id number] Dec, Dental examination Z01.20 [facility] [id number] [place] [address] 67514- 5579 Nov, Bipolar I disorder F31.9 ; ADHD (attention deficit hyperactivity disorder), inattentive type F90.0 ; Cannabis use disorder, mild, abuse F12.10 and Non-adherence to medical treatment Z91.19 [facility] [address] [place] [address] 74034- 8857 October, [facility] [id number] [place] [address] 96226- 4353 October, [address] [id number] [place] [address] 68661- 8490 Jan, Bipolar affective disorder F31.9 ; Social phobia, generalized F40.11 ; Cannabis use disorder, mild, abuse F12.10 and ADHD ( attention deficit hyperactivity disorder), inattentive type F90.0 [facility] [id number] [place] [address] 70947 -7526 Dec, [facility] [address] [place] [address] 07689 -8433 Nov, Sexually transmitted disease exposure Z20.2 [facility] [id number] [place] [address] 23805- 3206 Nov, Bipolar I disorder F31.9 ; Cannabis use disorder, mild, abuse F12.10 ; Social phobia, generalized F40.11 and ADHD (attention deficit hyperactivity disorder), inattentive type F90.0 [facility] [address] [place] [address] [id number] October, Dental examination Z01.20 [facility] [address] [place] [address] 45832- 5030 Aug, [facility] [id number] [place] [address] 07614- 7915 Jun, [facility] [id number] [place] [address] 55877- 0275 May, [facility] [id number] [place] [address] 167031- 4624 May, Bipolar affective disorder F31.9 ; ADHD (attention deficit hyperactivity disorder), combined type F90.2 ; Social phobia F40.10 and Oppositional defiant behavior F91.3 [facility] [id number] [place] [address] 91062- 1197 Apr, [facility] [id number] [place] [address] 47489- 9806 Apr, ADHD (attention deficit hyperactivity disorder), combined type F90.2 ; Social phobia F40.10 and Bipolar affective disorder F31.9 [facility] [id number] [place] [address] 55460- 5307 Feb, Bipolar disorder, unspecified 296.80 ; Social phobia 300.23 and Attention deficit disorder of childhood without mention of hyperactivity 314.00 [facility] [id number] [place] [address] 26897- 4753 Sep, [facility] [id number] [place] [address] 58754- 8525 Sep, [facility] [id number] [place] [address] 56340- 2591 October, [facility] [id number] [place] [address] 57348- 8560 October, [facility] [id number] [place] [address] 84777- 8392 Sep, [facility] [id number] [place] [address] 79368- 0177 Sep, [facility] [id number] [place] [address] 68165- 3517 Sep, [facility] [place] [facility] [address] [id number] [place] [address]- 5008 Aug, [facility] [place] [facility] [address] [id number] [place] [address]- 6912 Aug, [facility] [place] [facility] [address] [id number] [place] [address]- 4352 Jul, [facility] [place] [facility] [address] [id number] [place] [address]- 1831 Jul, [facility] [place] [facility] [address] [id number] [place] [address]- 3060 Jul, [facility] [place] [facility] [address] [id number] [place] [address]- 9262 Jul, [facility] [place] [facility] [address] [facility] [id number] [place] [address]- 6422 Jun, [facility] [place] [facility] [address] [id number] [place] [address]- 5947 Jun, [facility] [place] [facility] [address] [id number] [place] [address]- 1931 May, [facility] [place] [facility] [address] [facility] [id number] [place] [address] May, [facility] [place] [facility] [address] [facility] [id number] [place] [address]- 3148 Apr, [facility] [place] [facility] [address] [id number] [place] [address]- 7021 Apr, [facility] [place] [facility] [address] [id number] [place] [address]- 3212 Aug, [facility] [place] [facility] [address] [id number] [place] [address]- 4454 Jul, [facility] [place] [facility] [address] [id number] [place] [address]- 0887 Jun, [facility] [place] [facility] [address] [id number] [place] [address]- 0036 Jun, [facility] [address] [facility] [id number] [place] [address]- 9207 May, [facility] [address] [facility] [id number] [place] [address]- 2936 May, IMMUNIZATIONS No Known Immunizations SOCIAL HISTORY Never Assessed REASON FOR VISIT [facility] PLAN OF CARE VITAL SIGNS MEDICATIONS Unknown [...] [facility] 01/2015 Hospitalization History [facility] 10/2016 Hospitalization History [place] 06/2015 Hospitalization History Overdose 2017 Hospitalization History via [facility]cky [facility]RIEN 01/2018
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
[2018-10-30 16:49] LABS: BASOPHILS % (AUTO) 0 % (0-10); EOSINOPHILS # (AUTO) 0.1 10^3/uL (0.0-0.3); EOSINOPHILS % (AUTO) 1 % (0-10); HEMATOCRIT 45 % (40-54); HEMOGLOBIN 15.6 G/DL (13.3-17.7); LYMPHOCYTES # (AUTO) 2.3 X 10^3 (1.0-4.0); LYMPHOCYTES % (AUTO) 27 % (12-44); MEAN CORPUSCULAR HEMOGLOBIN 33 PG (25-34); MEAN CORPUSCULAR HGB CONC 35 G/DL (32-36); MEAN CORPUSCULAR VOLUME 93 FL (80-99); MEAN PLATELET VOLUME 10.3 FL (7.4-10.4); MONOCYTES # (AUTO) 0.6 X 10^3 (0.0-1.0); MONOCYTES % (AUTO) 7 % (0-12); NEUTROPHILS # (AUTO) 5.4 X 10^3 (1.8-7.8); NEUTROPHILS % (AUTO) 65 % (42-75); PLATELET COUNT 257 10^3/uL (130-400); RED CELL DISTRIBUTION WIDTH 13.4 % (10.0-14.5); WHITE BLOOD COUNT 8.3 10^3/uL (4.3-11.0)
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
[2018-10-30 17:04] LABS: ALANINE AMINOTRANSFERASE 14 U/L (0-55); ALBUMIN 4.3 GM/DL (3.2-4.5); ALKALINE PHOSPHATASE 55 U/L (40-136); BILIRUBIN,TOTAL 0.6 MG/DL (0.1-1.0); BUN/CREATININE RATIO 9; CALCIUM 9.2 MG/DL (8.5-10.1); CARBON DIOXIDE 21 MMOL/L (21-32); CHLORIDE 108 MMOL/L (98-107); GFR ESTIMATED > 60; GLUCOSE 259 MG/DL (70-105); SALICYLATE < 5.0 MG/DL (5.0-20.0); SODIUM 141 MMOL/L (135-145); TOTAL PROTEIN 6.7 GM/DL (6.4-8.2)
[2018-10-30 17:11] LABS: ACETAMINOPHEN < 10 UG/ML (10-30)
[2018-10-30 17:22] LABS: BILIRUBIN,URINE NEGATIVE (NEGATIVE); CLARITY,URINE CLEAR; COLOR,URINE YELLOW; GLUCOSE, URINE (UA) 2+ (NEGATIVE); KETONES,URINE NEGATIVE (NEGATIVE); LEUKOCYTE ESTERASE ,URINE 1+ (NEGATIVE); NITRITE,URINE NEGATIVE (NEGATIVE); PH,URINE 6.5 (5-9); PROTEIN,URINE 1+ (NEGATIVE); UROBILINOGEN,URINE NORMAL (NORMAL)
--- NOTE | 2018-10-30 17:27 | NUR ---
1727 in room to begin intubation Mildred RN; Dr. Salcido; MAGNOLIA Arroyo; Rush, RT; Susanne Stapleton RN present 1728 Etomidate 20 mg administered by Mildred 1729 Succs 80 mg administered by Mildred Pt's O2 sat 94% on room air 1729 pt bagged, O2 sat 90% 1730 BP 79/64, O2 99% 1731 LR hung 1732 pt intubated; size 8 ET 24 cm at teeth; good color change, bilat breath sounds TV 450, R 18, peep 5, FiO2 100% 1740 propofol drip started at 40 mcg/kg/min 1745 18 fr OG inserted 1750 propofol increased to 60 mcg/kg/min pt restless 1751 versed 5 mg administered by MAGNOLIA Arroyo 1754 fentanyl 100 mcg fentanyl administered by MAGNOLIA Arroyo 1800 chest xray reviewed by Dr. Salcido. Tubes in proper position 1800 20g IV inserted in L forearm by MAGNOLIA Arroyo
[2018-10-30] MEDS: LACTATED RINGERS 1,000 ML IV SCH ×3 (17:31→21:06)
[2018-10-30 17:32] LABS: BACTERIA,URINE TRACE /HPF; HYALINE CASTS, URINE RARE /LPF; SQUAMOUS EPITHELIAL CELL,UR 0-2 /HPF
[2018-10-30 17:33] LABS: BENZODIAZEPINES SCREEN URINE POSITIVE (NEGATIVE)
[2018-10-30 17:34] LABS: AMPHETAMINE SCREEN, URINE POSITIVE (NEGATIVE); BARBITURATE SCREEN URINE NEGATIVE (NEGATIVE); CANNABINOID SCREEN, URINE POSITIVE (NEGATIVE); COCAINE SCREEN URINE NEGATIVE (NEGATIVE); METHADONE STAT NEGATIVE (NEGATIVE); METHAMPHETAMINE SCREEN URINE S POSITIVE (NEGATIVE); OPIATE SCREEN URINE NEGATIVE (NEGATIVE); OXYCODONE STAT NEGATIVE (NEGATIVE); PROPOXYPHENE STAT NEGATIVE (NEGATIVE); TRICYCLIC ANTIDEPRESSANTS SCRE NEGATIVE (NEGATIVE)
[2018-10-30] MEDS ORDERED: PROPOFOL DRIP (ICU) 100 ML IV ONE (17:36)
[2018-10-30] MEDS: PROPOFOL DRIP (ICU) 100 ML IV SCH ×2 (17:40→21:19)
[2018-10-30] MEDS ORDERED: cefTRIAXone FOR IV USE 1,000 MG in WATER (STERILE) FOR INJECTION 10 ML IV ONE (18:00)
[2018-10-30 18:17] LABS: ABG BASE EXCESS -1.1 MMOL/L (-2.5-2.5); ABG OXYGEN SATURATION 100 % (94-100); ABG PCO2 40 MMHG (35-45); ABG PH 7.38 (7.37-7.43); ABG PO2 543 MMHG (79-93); ABG TCO2 24.8 MMOL/L (21.0-31.0); ALLENS TEST YES-POS
[2018-10-30 18:18] LABS: INSPIRED O2 100%; PATIENT TEMP 96.4; VENTILATOR YES
--- NOTE | 2018-10-30 18:23 | NUR ---
FiO2 decreased to 40% by RT
--- NOTE | 2018-10-30 18:25 | Diagnostic Imaging Report ---
INDICATION: ET tube placement. EXAMINATION: Frontal views of the chest were obtained at 5:59 p.m. COMPARISON: 02/05/2018. FINDINGS: ET tube tip overlies the mid trachea. NG tube tip overlies mid stomach. Heart is normal in size. The lungs are clear. There is no pneumothorax or pleural fluid. IMPRESSION: ET tube and NG tube appear to be in good position. No focal infiltrate, pneumothorax or pleural fluid. Dictated by: Dictated on workstation # [id number]
[2018-10-30] MEDS ORDERED: MIDAZOLAM 5 MG/5 ML (VERSED) VIAL ONE (18:38)
[2018-10-30] MEDS ORDERED: fentaNYL INJECTION 100 MCG/2 ML AMP ONE (18:38)
[2018-10-30] MEDS ORDERED: MIDAZOLAM 5 MG/5 ML (VERSED) VIAL IVP ONE (18:45)
[2018-10-30] MEDS ORDERED: MIDAZOLAM INJECTION FOR DRIPS 50 MG in NS (IVPB) 90 ML IV SCH (18:45)
[2018-10-30] MEDS ORDERED: fentaNYL INJECTION 100 MCG/2 ML AMP IVP ONE (18:45)
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
--- NOTE | 2018-10-30 19:45 | NUR ---
PT TO ROOM ICU 9. ACCOMPANIED BY FAMILY AND STAFF. PT SEDATED AND INTUBATED. VSS. POISON CONTROL UPDATED ON PT CONDITION
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
[2018-10-30] MEDS ORDERED: MIDAZOLAM FOR DRIPS 10 MG/2 ML VIAL ONE (20:13)
[2018-10-30] MEDS ORDERED: NS (IVPB) 100 ML ONE ×2 (20:14→20:34)
[2018-10-30] MEDS ORDERED: MIDAZOLAM DRIP 50 MG/NS 90 ML IV SCH ×2 (20:15)
[2018-10-30] MEDS ORDERED: ONDANSETRON 4 MG/2 ML (SDV) Z0FRAN IV PRN (20:15)
[2018-10-30] MEDS ORDERED: DEXTROSE 50% INJ VIAL IV PRN (20:15)
[2018-10-30] MEDS ORDERED: MIDAZOLAM 5 MG/5 ML (VERSED) VIAL IV PRN (20:15)
[2018-10-30] MEDS ORDERED: fentaNYL (OMNICELL DRIP KIT ONLY) 250 MCG/5 ML AMP ONE (20:34)
[2018-10-30] MEDS: fentaNYL 1,250 MCG/NS 250 ML DRIP IV SCH ×2 (20:50)
[2018-10-31] VITALS (22 sets, daily range): BP systolic 104–142; BP diastolic 66–100
[2018-10-31] MEDS ORDERED: NS (IVPB) 100 ML ONE (01:54)
[2018-10-31] MEDS ORDERED: fentaNYL (OMNICELL DRIP KIT ONLY) 250 MCG/5 ML AMP ONE (01:54)
[2018-10-31] MEDS: fentaNYL 1,250 MCG/NS 250 ML DRIP IV SCH ×2 (02:52)
[2018-10-31 03:35] LABS: BASOPHILS % (AUTO) 0 % (0-10); EOSINOPHILS # (AUTO) 0.2 10^3/uL (0.0-0.3); EOSINOPHILS % (AUTO) 1 % (0-10); HEMATOCRIT 41 % (40-54); HEMOGLOBIN 14.5 G/DL (13.3-17.7); LYMPHOCYTES # (AUTO) 2.8 X 10^3 (1.0-4.0); LYMPHOCYTES % (AUTO) 26 % (12-44); MEAN CORPUSCULAR HEMOGLOBIN 33 PG (25-34); MEAN CORPUSCULAR HGB CONC 35 G/DL (32-36); MEAN CORPUSCULAR VOLUME 94 FL (80-99); MEAN PLATELET VOLUME 10.2 FL (7.4-10.4); MONOCYTES % (AUTO) 9 % (0-12); NEUTROPHILS # (AUTO) 6.7 X 10^3 (1.8-7.8); NEUTROPHILS % (AUTO) 63 % (42-75); PLATELET COUNT 235 10^3/uL (130-400); RED CELL DISTRIBUTION WIDTH 13.6 % (10.0-14.5); WHITE BLOOD COUNT 10.6 10^3/uL (4.3-11.0)
[2018-10-31 03:47] LABS: ABG BASE EXCESS 0.9 MMOL/L (-2.5-2.5); ABG OXYGEN SATURATION 96 % (94-100); ABG PCO2 41 MMHG (35-45); ABG PO2 73 MMHG (79-93); ABG TCO2 26.6 MMOL/L (21.0-31.0)
[2018-10-31 03:49] LABS: ALLENS TEST POSITIVE; INSPIRED O2 21% FIO2; PATIENT TEMP 97.1; VENTILATOR YES
[2018-10-31 03:57] LABS: ALANINE AMINOTRANSFERASE 13 U/L (0-55); ALBUMIN 3.8 GM/DL (3.2-4.5); ALKALINE PHOSPHATASE 53 U/L (40-136); BILIRUBIN,TOTAL 0.8 MG/DL (0.1-1.0); BUN/CREATININE RATIO 12; CALCIUM 9.1 MG/DL (8.5-10.1); CARBON DIOXIDE 21 MMOL/L (21-32); CHLORIDE 111 MMOL/L (98-107); CREATININE SERUM 0.91 MG/DL (0.60-1.30); GFR ESTIMATED > 60; GLUCOSE 79 MG/DL (70-105); MAGNESIUM 1.9 MG/DL (1.8-2.4); PHOSPHORUS 2.9 MG/DL (2.3-4.7); POTASSIUM 3.8 MMOL/L (3.6-5.0); SODIUM 144 MMOL/L (135-145); TOTAL PROTEIN 5.9 GM/DL (6.4-8.2)
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
[2018-10-31] MEDS: LACTATED RINGERS 1,000 ML IV SCH ×2 (05:51→06:46)
--- NOTE | 2018-10-31 05:52 | NUR ---
DR ANNE AT BEDSIDE, ORDERS TO D/C SEDATION
--- NOTE | 2018-10-31 05:52 | NUR ---
NOTIFIED DR ANNE OF PT LOW URINE OUTPUT, SEE EMAR
--- NOTE | 2018-10-31 07:05 | NUR ---
RT AT BEDSIDE, PT OPENING EYES, FOLLOWING COMMANDS. ORDERS FROM DR ANNE TO EXTUBATE. PT EXTUBATED AT THIS TIME. PLACED ON 2L NC. ALL VSS STABLE.
--- NOTE | 2018-10-31 07:29 | NUR ---
FENTANYL AND VERSED DRIP D/C. 50ML OF FENTANYL AND 30ML OF VERSED WASTED BY THIS RN. WITNESSED BY MAGNOLIA GRIFFITHS
--- NOTE | 2018-10-31 08:12 | Diagnostic Imaging Report ---
Indication: Intubation. Comparison: 10/30/2018. Findings: Stable ET and enteric tubes. Visualized lungs are clear. No pleural effusion or pneumothorax. Normal cardiomediastinal silhouette. Impression: Stable support devices without adverse development. Dictated by: Dictated on workstation # [id number]
--- NOTE | 2018-10-31 08:25 | Occ Therapy Progress Note ---
Therapy Progress Note OT order received. Chart reviewed. Pt. is currently on ventilator support. Will continue to monitor pt. and evaluate for ADL skills after successfully extubated. [id number] CLAUDIA JENNINGS OT October 31, 2018 08:25
[2018-10-31] MEDS ORDERED: fentaNYL INJECTION 100 MCG/2 ML AMP INJ ONE (10:11)
[2018-10-31] MEDS ORDERED: SUCCINYLCHOLINE INJ 100 MG/5 ML SYR INJ ONE (10:11)
[2018-10-31] MEDS ORDERED: MIDAZOLAM 5 MG/5 ML (VERSED) VIAL INJ ONE (10:11)
[2018-10-31] MEDS ORDERED: ETOMIDATE IV SOLN 20 MG/10 ML VIAL IV ONE (10:11)
--- NOTE | 2018-10-31 10:37 | Physical Therapy Evaluation ---
PT Evaluation-General Medical Diagnosis Admission Date October 30, 2018 at 18:30 Medical Diagnosis: overdose Onset Date: October 30, 2018 Therapy Diagnosis Therapy Diagnosis: impaired mobility, endurance, balance Height/Weight Height (Feet): 5 Height (Inches): 8.00 Weight (Pounds): 153 Weight (Ounces): 1.0 Precautions Precautions/Isolations: Fall Prevention, Standard Precautions Referral Physician: Janae Valenzuela DO Reason for Referral: Evaluation/Treatment Social History Patient did not elaborate on his home status and became irritated when asked. Prior/Core FIM Prior Level of Function Therapy Code Descriptions/Definitions Functional Nobles Measure: 0=Not Assessed/NA 4=Minimal Assistance 1=Total Assistance 5=Supervision or Setup 2=Maximal Assistance 6=Modified Nobles 3=Moderate Assistance 7=Complete Nobles Therapy Quality Codes: 6 Independent with activity with or without an assistive device 5 Patient requires set up or clean up by helper. Patient completes activity by themselves 4 Supervision or touching assist (CGA). [place] provide cues , steadying assist 3 The helper provides less than half the effort to complete the activity 2 The helper provides more than half the effort to complete the activity 1 Dependent. The helper does all the effort to complete an activity 7 Patient refused to complete or attempt activity 9 The patient did not perform the activity before the current illness or injury 88 Not attempted due to Medical conditions or safety concerns Functional Abilities and Goals: Independent: Patient completed the activities by him/herself, with or without an assistive device, with no assistance from a helper. Needed Some Help: Patient needed partial assistance from another person to complete activities. Dependent: A helper completed the activities for the patient. Unknown: Not Applicable: Bed Mobility: 7 Transfers (B,C,W/C) (FIM): 7 Gait: 7 Stairs: 7 Indoor Mobility (Ambulation): Independent Stairs: Independent PT Evaluation-Current Subjective Patient in bed pre tx, agrees to PT, no complaints of pain. Patient has a harsh cough, he was extubated not too long ago. Pt/Family Goals none stated Objective Patient Orientation: Person, Place Attachments: Oxygen, Cruz Catheter, IV ROM/Strength ROM Lower Extremities WNL Strength Lower Extremities 5/5 gross bilateral lower extremities Neuromuscular (Tone, Coordination, Reflexes) NT Sensory Vision: Functional Hearing: Functional Sensation Right Lower Extremit: Intact Sensation Left Lower Extremity: Intact Transfers Therapy Code Descriptions/Definitions Functional Nobles Measure: 0=Not Assessed/NA 4=Minimal Assistance 1=Total Assistance 5=Supervision or Setup 2=Maximal Assistance 6=Modified Nobles 3=Moderate Assistance 7=Complete Nobles Transfers (B, C, W/C) (FIM): 5 Scootin Rollin Supine to/from Sit: 6 Sit to/from Stand: 5 Patient moves impulsively but does not need assist. Gait Mode of Locomotion: Walk Anticipated Mode of Locomotion: Walk Gait (FIM): 5 Distance: 150' Gait Level of Assist: 5 Gait Persons Needed: 1 Gait Assistive Device: None Comments/Gait Description Patient ambulates briskly and had a couple of instances of instability but no jeremy LOB Balance Sitting Static: Normal Sitting Dynamic: Normal Standing Static: Fair Standing Dynamic: Fair Treatment BLE seated exercises x15 (AP, LAQ) Assessment/Needs Patient has impaired mobility, endurance, balance post overdose and intubation. He needs SBA when performing transfers and ambulation. Rehab Potential: Fair PT Short Term Goals Short Term Goals Transfers (B,C,W/C) (FIM): 7 Gait (FIM): 7 Gait Distance Comment: 200' Gait Level of Assist: 7 PT Plan Problem List Problem List: Activity Tolerance, Functional Strength, Safety, Balance, Gait, Transfer Treatment/Plan Treatment Plan: Continue Plan of Care Treatment Plan: Education, Functional Activity Yvette, Functional Strength, Gait , Safety, Therapeutic Exercise, Transfers Treatment Duration: November 07, 2018 Frequency: 6 times per week Estimated Hrs Per Day: .25 hour per day (15-30') Patient and/or Family Agrees t: Yes Safety Risks/Education Patient Education: Gait Training, Transfer Techniques, Correct Positioning, Safety Issues Teaching Recipient: Patient Teaching Methods: Demonstration, Discussion Response to Teaching: Reinforcement Needed Discharge Recommendations Plan Patient will perform bed mobility and transfer training, balance and endurance training, functional strengthening, stair training, gait training, and education , to improve functional mobility and independence at home. Therapy D/C Recommendations: Home w/ Family Support Time/GCodes Time In: 1005 Time Out: 1020 Total Billed Treatment Time: 15 Total Billed Treatment 1 visit EVL 15' REMA DORANTES PT October 31, 2018 10:37
[2018-10-31] MEDS ORDERED: LURA20TA PO (10:40)
[2018-10-31] MEDS ORDERED: GUAN3TAB3 PO (10:40)
[2018-10-31] MEDS ORDERED: BUSP15TA60 PO (10:40)
[2018-10-31] MEDS ORDERED: CYPR4TAB41 PO (10:40)
--- NOTE | 2018-10-31 10:41 | NUR ---
UNABLE TO SPEAK WITH THE PATIENT AT THIS TIME. I HAD A LIST FAXED OVER FROM [facility] AND UPDATED THE MED REC ACCORDINGLY. THEY ARE PAST DUE FOR REFILL, I NOTED THE LAST FILL DATES ON THE MED REC. I VERIFIED WITH [facility] THAT THESE DATES ARE CORRECT.
--- NOTE | 2018-10-31 10:45 | NUR ---
SPOKE WITH SVETLANA AT [facility] FOR MENTAL HEALTH ASSESSMENT PER VERBAL ORDERS RECEIVED DR SANTOS.
--- NOTE | 2018-10-31 10:59 | NUR ---
CM/SS spoke with RNing and MILLER Eldridge has already been called and Hair will be out to assess the patient. Patient previously has had MH services at [facility]. Will await recommendations from [facility] and continue to follow.
--- NOTE | 2018-10-31 16:39 | Short Stay Summary ---
HPI History of Present Illness: 23 yo M with h/o multiple OD that was found down and brought to ER. Patient was no protecting airway and was intubated. This AM patient was extubated. Patient states that he does not remember what he took. He denies wanting to hurt himself or wanting to . States that he just likes to get "F'ed UP. States that he follows with yves virgen for his medications and last saw her 1 month ago. Has been to rehab but he is not interested. Source: patient, old records Exam Limitations: no limitations Date seen by provider: October 31, 2018 Time Seen by Provider: 09:55 Attending Physician Janae Valenzuela DO [facility] Consult Date of Admission October 30, 2018 at 18:30 Home Medications Home Medications Reviewed patient Home Medication Reconciliation performed by pharmacy medication reconciliations gameroom technician and/or nursing. Patients Allergies have been reviewed. Allergies Coded Allergies: strawberry (Verified Allergy, Unknown, 02/06/18) [id number] Hx Patient Social History Alcohol Use: Regular Use Recreational Drug Use: Yes Drug of Choice: THC Meth, Benzos Smoking Status: Current Everyday Smoker Type Used: Cigarettes 2nd Hand Smoke Exposure: Yes Recent Foreign Travel: No Contact w/other who traveled: No Recent Hopitalizations: No Recent Infectious Disease Expo: No Immunizations Up To Date Tetanus Booster (TDap): Unknown Past Medical History Bipolar Disorder ADD Drug Abuse Tobacco Abuse Medical Noncompliance Family Medical History Significant Family History: Heart Disease, Diabetes, Hypertension, Psychiatric Problems, Vascular Disease Family History: Patient reports no known family medical history. Review of Systems ([facility]) Constitutional: no symptoms reported; No fever, No malaise EENTM: throat pain Respiratory: cough; No dyspnea on exertion, No short of breath Cardiovascular: no symptoms reported; No chest pain, No edema, No palpitations Gastrointestinal: no symptoms reported; No abdominal pain, No constipation, No diarrhea, No nausea, No vomiting Genitourinary: no symptoms reported; No dysuria, No frequency, No hematuria Musculoskeletal: no symptoms reported Skin: no symptoms reported; No lesions, No rash Psychiatric/Neurological: Anxiety Reviewed Test Results Reviewed Test Results Lab Laboratory Tests Test 10/30/18 19:51 10/30/18 20:48 10/30/18 23:38 10/31/18 03:25 Range/Units Lactic Acid Level 1.37 0.50-2.00 MMOL/L Glucometer 77 73 70-110 MG/DL White Blood Count 10.6 4.3-11.0 10^3/uL Red Blood Count 4.36 4.35-5.85 10^6/uL Hemoglobin 14.5 13.3-17.7 G/DL Hematocrit 41 40-54 % Mean Corpuscular Volume 94 80-99 FL Mean Corpuscular Hemoglobin 33 25-34 PG Mean Corpuscular Hemoglobin Concent 35 32-36 G/DL Red Cell Distribution Width 13.6 10.0-14.5 % Platelet Count 235 130-400 10^3/uL Mean Platelet Volume 10.2 7.4-10.4 FL Neutrophils (%) (Auto) 63 42-75 % Lymphocytes (%) (Auto) 26 12-44 % Monocytes (%) (Auto) 9 0-12 % Eosinophils (%) (Auto) 1 0-10 % Basophils (%) (Auto) 0 0-10 % Neutrophils # (Auto) 6.7 1.8-7.8 X 10^3 Lymphocytes # (Auto) 2.8 1.0-4.0 X 10^3 Monocytes # (Auto) 1.0 0.0-1.0 X 10^3 Eosinophils # (Auto) 0.2 0.0-0.3 10^3/uL Basophils # (Auto) 0.0 0.0-0.1 10^3/uL Sodium Level 144 135-145 MMOL/L Potassium Level 3.8 3.6-5.0 MMOL/L Chloride Level 111 H 98-107 MMOL/L Carbon Dioxide Level 21 21-32 MMOL/L Anion Gap 12 5-14 MMOL/L Blood Urea Nitrogen 11 7-18 MG/DL Creatinine 0.91 0.60-1.30 MG/DL Estimat Glomerular Filtration Rate > 60 BUN/Creatinine Ratio 12 Glucose Level 79 70-105 MG/DL Calcium Level 9.1 8.5-10.1 MG/DL Corrected Calcium 9.3 8.5-10.1 MG/DL Phosphorus Level 2.9 2.3-4.7 MG/DL Magnesium Level 1.9 1.8-2.4 MG/DL Total Bilirubin 0.8 0.1-1.0 MG/DL Aspartate Amino Transf (AST/SGOT) 17 5-34 U/L Alanine Aminotransferase (ALT/SGPT) 13 0-55 U/L Alkaline Phosphatase 53 40-136 U/L Total Protein 5.9 L 6.4-8.2 GM/DL Albumin 3.8 3.2-4.5 GM/DL Test 10/31/18 03:40 Range/Units Blood Gas Puncture Site RIGHT RADIAL Blood Gas Patient Temperature 97.1 Arterial Blood pH 7.40 7.37-7.43 Arterial Blood Partial Pressure CO2 41 35-45 MMHG Arterial Blood Partial Pressure O2 73 L 79-93 MMHG Arterial Blood HCO3 25 23-27 MMOL/L Arterial Blood Total CO2 26.6 21.0-31.0 MMOL/L Arterial Blood Oxygen Saturation 96 94-100 % Arterial Blood Base Excess 0.9 -2.5-2.5 MMOL/L Garret Test POSITIVE Blood Gas Ventilator Setting YES Blood Gas Inspired Oxygen 21% FIO2 Physical Exam-(CHC) Physical Exam Vital Signs VS - Last 72 Hours, by Label 10/30/18 10/30/18 10/30/18 10/30/18 16:29 17:40 18:13 19:15 Temp 96.4 96.4 96.4 Pulse 85 117 76 80 Resp 06 07 18 18 B/P (MAP) 123/76 (92) 136/108 (117) Pulse Ox 99 99 100 100 O2 Delivery Room Air Mechanical Ventilator Mechanical Ventilator FiO2 100 10/30/18 10/30/18 10/30/18 10/30/18 19:37 19:39 19:51 20:00 Temp 97.9 Pulse 82 83 81 Resp B/P (MAP) 148/111 (123) Pulse Ox 99 99 99 O2 Delivery Mechanical Ventilator Mechanical Ventilator O2 Flow Rate 35.00 FiO2 35 35 10/30/18 10/30/18 10/30/18 10/30/18 20:00 20:15 20:30 20:34 Pulse 82 84 84 Resp 18 18 18 B/P (MAP) 135/103 (114) 132/107 (115) 141/106 (118) 131/97 Pulse Ox 99 99 99 O2 Delivery Mechanical Ventilator Mechanical Ventilator Mechanical Ventilator O2 Flow Rate 35.00 35.00 35.00 10/30/18 10/30/18 10/30/18 10/30/18 20:45 21:00 21:19 22:00 Temp 96.4 Pulse 81 84 117 72 Resp 18 18 18 18 B/P (MAP) 130/103 (112) 132/98 (109) 123/88 (100) Pulse Ox 99 99 99 99 O2 Delivery Mechanical Ventilator Mechanical Ventilator Mechanical Ventilator Mechanical Ventilator O2 Flow Rate 35.00 35.00 0.00 21.00 10/30/18 10/30/18 10/30/18 10/31/18 22:06 23:00 23:40 00:00 Temp 97.4 Pulse 73 70 90 Resp 18 18 17 B/P (MAP) 112/94 (100) 128/90 (103) Pulse Ox 99 99 100 O2 Delivery Mechanical Ventilator Mechanical Ventilator Mechanical Ventilator O2 Flow Rate 21.00 21.00 21.00 FiO2 21 10/31/18 10/31/18 10/31/18 10/31/18 00:00 00:40 01:00 01:03 Pulse 80 75 78 Resp 18 17 B/P (MAP) 130/95 (107) Pulse Ox 99 93 93 O2 Delivery Mechanical Ventilator Mechanical Ventilator O2 Flow Rate 21.00 FiO2 21 21 10/31/18 10/31/18 10/31/18 10/31/18 02:00 02:36 03:00 04:00 Temp 97.1 Pulse 70 67 72 72 Resp 18 18 17 18 B/P (MAP) 113/85 (94) 109/82 (91) 112/79 (90) Pulse Ox 94 96 94 95 O2 Delivery Mechanical Ventilator Mechanical Ventilator Mechanical Ventilator O2 Flow Rate 21.00 21.00 21.00 FiO2 21 10/31/18 10/31/18 10/31/18 10/31/18 04:00 05:00 06:00 06:01 Pulse 68 70 69 Resp 17 17 18 B/P (MAP) 113/83 (93) 104/76 (85) Pulse Ox 95 94 94 94 O2 Delivery Mechanical Ventilator Mechanical Ventilator Mechanical Ventilator O2 Flow Rate 21.00 21.00 FiO2 21 21 10/31/18 10/31/18 10/31/18 10/31/18 07:00 07:00 07:04 08:00 Pulse 99 93 101 Resp 17 16 B/P (MAP) 142/96 (111) 121/90 (100) Pulse Ox 96 98 O2 Delivery Mechanical Ventilator Nasal Cannula Mechanical Ventilator O2 Flow Rate 21.00 2.00 21.00 5/13/10/31/18 10/31/18 10/31/18 08:00 08:00 08:10 09:00 Temp 97.4 Pulse 92 Resp 15 B/P (MAP) 126/81 (96) Pulse Ox 97 92 O2 Delivery Room Air Nasal Cannula Nasal Cannula O2 Flow Rate 1.00 1.00 1.00 FiO2 21 10/31/18 10/31/18 10/31/18 10/31/18 10:00 11:00 12:00 12:00 Temp 99.0 Pulse 88 92 68 Resp 15 13 14 B/P (MAP) 120/83 (95) 120/100 (107) 112/79 (90) Pulse Ox 94 97 O2 Delivery Nasal Cannula Nasal Cannula Nasal Cannula O2 Flow Rate 1.00 1.00 1.00 10/31/18 10/31/18 10/31/18 10/31/18 12:35 12:48 13:00 14:00 Pulse 89 75 74 Resp 19 14 B/P (MAP) 109/66 (80) 115/77 (90) Pulse Ox 97 99 99 O2 Delivery Room Air Nasal Cannula Nasal Cannula O2 Flow Rate 1.00 1.00 FiO2 21 10/31/18 10/31/18 10/31/18 15:00 16:00 16:11 Pulse 74 75 Resp 15 16 B/P (MAP) 117/78 (91) 117/78 (91) Pulse Ox 97 97 97 O2 Delivery Nasal Cannula Nasal Cannula Room Air O2 Flow Rate 1.00 1.00 FiO2 21 Capillary Refill : Less Than 3 Seconds General Appearance: WD/WN, no apparent distress HEENT: PERRL/EOMI Neck: full range of motion, supple Respiratory: chest non-tender, no respiratory distress, no accessory muscle use , crackles Cardiovascular: normal peripheral pulses, regular rate, rhythm, no edema, no murmur Gastrointestinal: normal bowel sounds, non tender, soft, no organomegaly Back: no CVA tenderness, no vertebral tenderness Extremities: no pedal edema, no calf tenderness, normal capillary refill Neurologic/Psychiatric: 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 II-XII nml as tested, alert, normal mood/affect, oriented x 3 Skin: normal color, warm/dry Lymphatic: no adenopathy Short Stay Diagnosis Discharge Diagnosis-Short Stay Admission Diagnosis Multiple drug overdose Illicit drug use Acute Respiratory Failure Final Discharge Diagnosis See above Conclusion Plan See plan Was the Problem List Reviewed?: Yes Clinical Quality Measures DVT/VTE Risk/Contraindication: RFS Level Per Nursing on Admit: 0=No Risk/No VTE PPX Assessment/Plan Assessment/Plan Admission Status: Inpatient Order (span 2 midnights) Reason for Inpatient Admission: Require vent to protect airway (1) Acute respiratory insufficiency Status: Acute Assessment & Plan: - Patient was extubated this AM, Doing well on RA, States that he would like to be D/alta (2) Drug overdose, multiple drugs Status: Acute Assessment & Plan: - Medically stable, Evaluated by [facility], patient does not desire inpatient psych Qualifiers: Qualified Codes: T50.901A - Poisoning by unspecified drugs, medicaments and biological substances, accidental (unintentional), initial encounter (3) Illicit drug use, continuous Status: Acute Assessment & Plan: - Discussed the dangers, offered outpatient treatment program at [facility] (4) Bipolar disorder Status: Chronic Assessment & Plan: - Will have close f/u with psych tomorrow for medication titration ANASTACIA SANTOS MD October 31, 2018 16:39
--- NOTE | 2018-10-31 16:42 | Discharge Instructions ---
Discharge Inst-[facility] Discharge Medications Continued Medications: Divalproex Sodium (Divalproex Sodium ER) 500 Mg Tab.er.24h 1000 MG PO HS, TAB LAST FILLED #60 07-07-18 TAKES 2 (500MG) TABLETS Discontinued Medications: Buspirone HCl (Buspirone HCl) 15 Mg Tablet 15 MG PO BID, TAB LAST FILLED #60 07-07-18 Cyproheptadine HCl (Cyproheptadine HCl) 4 Mg Tablet 4-8 MG PO HS for NIGHTMARES, TAB LAST FILLED #60 07-07-18 Guanfacine HCl (Guanfacine HCl ER) 3 Mg Tab.er.24h 3 MG PO DAILY, TAB LAST FILLED #30 07-07-18 Lurasidone HCl (Latuda) 20 Mg Tablet 20 MG PO DAILY, TAB LAST FILLED #30 08-30-18 Patient Instructions Goal/Follow Up Appt: - You have an appt with Carolyn Sherman on 11/01 for medication titration Patient Instructions: - Make sure you make your appt tomorrow - Discussed the danger in mixing illcit drugs with prescription medications Activity & Diet Discharge Diet: No Restrictions Activity as Tolerated: Yes Copy Copies To 1: Carolyn MARC HOLLY R MD October 31, 2018 16:42
== END 2018-10-31 17:45 | disposition home or self-care (01) | DRG 917 ==
LOC: EDUNIT# 16:29 → ER 16:30 → ICU 18:30
PROVIDERS: ADMIT Internal Medicine; ATTEND Internal Medicine
PROC: 5A1935Z Respiratory Ventilation, Less than 24 Consecutive Hours (ICD-10-PCS; principal; 2018-10-30)
PROC: 0BH17EZ Insertion of Endotracheal Airway into Trachea, Via Natural or Artificial Opening (ICD-10-PCS; 2018-10-30)
DX: T43.591A Poisoning by other antipsychotics and neuroleptics, accidental (unintentional), initial encounter (principal); T43.201A Poisoning by unspecified antidepressants, accidental (unintentional), initial encounter; T51.0X1A Toxic effect of ethanol, accidental (unintentional), initial encounter; T42.4X1A Poisoning by benzodiazepines, accidental (unintentional), initial encounter; T40.5X1A Poisoning by cocaine, accidental (unintentional), initial encounter; T43.641A Poisoning by ecstasy, accidental (unintentional), initial encounter; J96.00 Acute respiratory failure, unspecified whether with hypoxia or hypercapnia; F23 Brief psychotic disorder; F17.210 Nicotine dependence, cigarettes, uncomplicated; F31.9 Bipolar disorder, unspecified; F98.8 Other specified behavioral and emotional disorders with onset usually occurring in childhood and adolescence
CPT/HCPCS: 31500; 36415; 36600; 51702; 71045; 80053; 80306; 80320; 80329; 81000; 82805; 82962; 83605; 83735; 84100; 84443; 85025; 87040; 87070; 87081; 87088; 87205; 93005; 93041; 94002; 94003; 94664; 94799; 96361; 96365; 96375; 99291

== ENCOUNTER 2019-02-06 01:40 | Emergency (ER) | payer MEDICARE, MEDICAID ==
[~2019-02-06 01:40] MED LIST changes: +BUSP15TA60 PO; +CYPR4TAB41 PO; +GUAN3TAB3 PO; +LURA20TA PO
--- NOTE | 2019-02-06 02:55 | NUR ---
Patient left without being seen.
== END 2019-02-06 02:55 | disposition left against medical advice (07) ==
LOC: EDUNIT# 01:40 → ER 01:41
DX: K08.89 Other specified disorders of teeth and supporting structures (principal)

== ENCOUNTER 2019-09-03 15:39 | Emergency (ER) | payer MEDICARE, MEDICAID ==
[~2019-09-03] VITALS: Ht 170 cm; Wt 68.0 kg
[2019-09-03] MEDS ORDERED: LIDOCAINE 1% INJ 20 ML 20 ML VIAL ONE (15:46)
[2019-09-03] MEDS ORDERED: TETANUS,DIPTH,PERTUSS P/F (BOOSTRIX) 0.5 ML VIAL IM ONE ×2 (15:47→16:00)
[2019-09-03] MEDS ORDERED: LIDOCAINE 1% INJ 20 ML 20 ML VIAL INJ ONE (16:00)
[2019-09-03] MEDS ORDERED: TRIM/SULFAMETH 160/800 (SEPTRA DS) TAB PO ONE (16:00)
[2019-09-03] MEDS ORDERED: SULF1TAB35 PO (16:54)
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
[2019-09-03 17:01] VITALS: BP 146/90
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
--- OUTSIDE RECORDS SUMMARY | 2019-09-04 02:05 | XMS REPORT ---
Author Author Abrahan REYES Organization [facility] Address [address] [place] [address] Care Team Providers Care Litigation Support Analyst Name Role Phone FE REYES Unavailable PROBLEMS Type Condition ICD9-CM Code IFS17-KB Code Onset Dates Condition S tatus SNOMED Code Problem ADHD (attention deficit hyperactivity disorder), inattentive type F90.0 Active 46306998 Problem Cannabis use disorder, mild, abuse F12.10 Active 63794009 Problem Bipolar affective disorder F31.9 Act giuseppe 98935918 Problem Cannabis abuse F12.10 Active 36375 009 Problem Non-adherence to medical treatment Z91.19 Active 825709150 Problem Chronic post-traumatic stress disorder (PTSD) F43. 12 Active 958295625 Problem Psoriasis L40.9 Active 2477420 Problem Social phobia, generalized F40.11 Act giuseppe 96833045 Problem Mood disorder F39 Active 495080 05 Problem Bipolar I disorder F31.9 Active 3 11838346 Problem Bipolar affective disorder, currently depressed, moderate F31.32 Active 301441334 Problem PTSD (post-traumatic stress disorder) F43.10 Active 58402215 Problem Anxiety F41.9 Active 79005082 Problem Hammer toe of right foot M20.41 Activ e [id number] ALLERGIES No Information ENCOUNTERS Encounter Location Date Diagnosis [facility] [address] [facility] [id number] [address] [place] [address] Jul, Viral illness B34.9 [facility] [address] [facility] [id number] [address] [place] [address] Jun, Viral gastroenteritis A08.4 [facility] [address] [place], [place] [address] 57 Mar, Mood disorder F39 [facility] [address] [facility] [id number] [address] [place] [address] October, Exposure to trichomonas Z20. 2 and Unprotected sexual intercourse Z72.51 [place] [address] [place] [address] Aug, Bipolar affective disorder F31.9 ; Bipol ar affective disorder, currently depressed, moderate F31.32 ; Chronic post-traumatic stress disorder (PTSD) F43.12 and ADHD (attention deficit hyperactivity disorder), inattentive type F90.0 [place] [address] [address] Jun, Bipolar affective disorder, currently de pressed, moderate F31.32 ; Social phobia, generalized F40.11 and Chronic post-traumatic stress disorder (PTSD) F43.12 [facility] [address] [place], [place] [address] 57 May, Anxiety F41.[address] [address] May, [address] [address] Mar, [place] [address] [address] Feb, Bipolar I disorder F31.9 ; ADHD (attenti on deficit hyperactivity disorder), inattentive type F90.0 ; Cannabis abuse F12.10 and Non-adherence to medical treatment Z91.19 [id number] [place] [address] Jan, [facility] [address] [facility] [place] [address] Dec, Dental examination Z01.[address] [address] Nov, Bipolar I disorder F31.9 ; ADHD (attenti on deficit hyperactivity disorder), inattentive type F90.0 ; Cannabis use disorder, mild, abuse F12.10 and Non-adherence to medical treatment Z91.19 [place] [address] [place] [address] October, [place] [address] [place] [address] [address] [place] [address] October, [facility] [address] [place] [address] Jan, Bipolar affective disorder F31.9 ; Socia l phobia, generalized F40.11 ; Cannabis use disorder, mild, abuse F12.10 and ADHD (attention deficit hyperactivity disorder), inattentive type F90.0 [facility] [address] [facility] [id number] [place] [address] Dec, [facility] [address] [facility] [id number] [place] [address] Nov, Sexually transmitted disease exposure Z20.2 [place] [address] [place] [address] Nov, Bipolar I disorder F31.9 ; Cannabis use disorder, mild, abuse F12.10 ; Social phobia, generalized F40.11 and ADHD (attention deficit hyperactivity disorder), inattentive type F90.0 [facility] [address] [facility] [place] [address] October, Dental examination Z01.20 [place] [address] [address] Aug, [facility] [address] [address] Jun, [place] [address] [address] May, [facility] [address] [address] May, Bipolar affective disorder F31.9 ; ADHD (attention deficit hyperactivity disorder), combined type F90.2 ; Social phobia F40.10 and Oppositional defiant behavior F91.3 [facility] [address] [place] [address] Apr, [place] [address] [address] Apr, ADHD (attention deficit hyperactivity di sorder), combined type F90.2 ; Social phobia F40.10 and Bipolar affective disorder F31.9 [facility] [address] [address] Feb, Bipolar disorder, unspecified 296.80 ; S ocial phobia 300.23 and Attention deficit disorder of childhood without mention of hyperactivity 314.00 [facility] [address] [address] Sep, [facility] [address] [address] Sep, [facility] [address] [address] October, [facility] [address] [address] October, [facility] [address] [address] Sep, [facility] [address] [address] Sep, [facility] [address] [address] Sep, [facility] [address] [address] Aug, [facility] [address] [address] Aug, [facility] [address] [address] Jul, [facility] [address] [address] Jul, [facility] [address] [address] Jul, [facility] [address] [address] Jul, [facility] [address] [address] Jun, [facility] [address] [facility] [place] [address] Jun, [facility] [address] [facility] [place] [address] May, [facility] [id number] [place] [address] May, [facility] [address] [place] [address] Apr, [facility] [id number] [place] [address] Apr, [facility] [id number] [place] [address] Aug, [facility] [id number] [place] [address] Jul, [facility] [id number] [place] [address] Jun, [facility] [id number] [place] [address] Jun, [facility] [id number] [place] [address] May, [facility] [address] [facility] [place] [address] May, IMMUNIZATIONS No Known Immunizations SOCIAL HISTORY Never Assessed REASON FOR VISIT PLAN OF CARE VITAL SIGNS Height 67.75 in 2013-09-27 Weight 139.38 lbs 2013-09-27 Temperature 97.4 degrees Fahrenheit 2013-09-27 Heart Rate 80 bpm 2013-09-27 Respiratory Rate 24 2013-09-27 Blood pressure systolic 114 mmHg 2013-09-27 Blood pressure diastolic 96 mmHg 2013-09-27 MEDICATIONS No Known Medications RESULTS No Results [...] No know Surgical history Hospitalization History [facility] 01/2015 Hospitalization History [facility] 10/2016 Hospitalization History [place] 06/2015 Hospitalization History Overdose 2017 Hospitalization History via [facility] 01/2018 Hospitalization History overdose 10/2018
--- OUTSIDE RECORDS SUMMARY | 2019-09-04 02:05 | XMS REPORT ---
Author Author Abrahan REYES Organization [facility] Address [address] [place] [address] Care Team Providers Care Retail Beauty Specialist Name Role Phone FE REYES Unavailable PROBLEMS Type Condition ICD9-CM Code [id number] Code Onset Dates Condition S tatus SNOMED Code Problem ADHD (attention deficit hyperactivity disorder), inattentive type F90.0 Active 84330766 Problem Cannabis use disorder, mild, abuse F12.10 Active 37881124 Problem Bipolar affective disorder F31.9 Act giuseppe 27337708 Problem Cannabis abuse F12.10 Active 95901 009 Problem Non-adherence to medical treatment Z91.19 Active 887775215 Problem Chronic post-traumatic stress disorder (PTSD) F43. 12 Active 427764821 Problem Psoriasis L40.9 Active 3744476 Problem Social phobia, generalized F40.11 Act giuseppe 04035675 Problem Mood disorder F39 Active 200022 05 Problem Bipolar I disorder F31.9 Active 3 41214034 Problem Bipolar affective disorder, currently depressed, moderate F31.32 Active 211906224 Problem PTSD (post-traumatic stress disorder) F43.10 Active 56646058 Problem Anxiety F41.9 Active 12827884 Problem Hammer toe of right foot M20.41 Activ e [id number] ALLERGIES No Information ENCOUNTERS Encounter Location Date Diagnosis [facility] [address] [facility] [id number] [address] [place] [address] Jul, Viral illness B34.9 [facility] [address] [facility] [id number] [address] [place] [address] Jun, Viral gastroenteritis A08.4 [facility] [address] [place], [place] [id number] 57 Mar, Mood disorder F39 [facility] [address] [facility] [id number] [address] [place] [address] October, Exposure to trichomonas Z20. 2 and Unprotected sexual intercourse Z72.51 [place] [address] [place] [address] Aug, Bipolar affective disorder F31.9 ; Bipol ar affective disorder, currently depressed, moderate F31.32 ; Chronic post-traumatic stress disorder (PTSD) F43.12 and ADHD (attention deficit hyperactivity disorder), inattentive type F90.0 [place] [address] [address] Jun, Bipolar affective disorder, currently de pressed, moderate F31.32 ; Social phobia, generalized F40.11 and Chronic post-traumatic stress disorder (PTSD) F43.12 [facility] [address] [place], [place] [address] 57 May, Anxiety F41.[address] [address] May, [address] [address] Mar, [place] [address] [address] Feb, Bipolar I disorder F31.9 ; ADHD (attenti on deficit hyperactivity disorder), inattentive type F90.0 ; Cannabis abuse F12.10 and Non-adherence to medical treatment Z91.19 [place] [id number] [place] [address] Jan, [facility] [address] [facility] [place], [place] [address] Dec, Dental examination Z01.[address] [address] Nov, Bipolar I disorder F31.9 ; ADHD (attenti on deficit hyperactivity disorder), inattentive type F90.0 ; Cannabis use disorder, mild, abuse F12.10 and Non-adherence to medical treatment Z91.19 [place] [address] [place] [address] October, [place] [address] [place] [address] [address] [place] [address] October, [facility] [address] [place] [address] Jan, Bipolar affective disorder F31.9 ; Socia l phobia, generalized F40.11 ; Cannabis use disorder, mild, abuse F12.10 and ADHD (attention deficit hyperactivity disorder), inattentive type F90.0 [facility] [address] [facility] [id number] [place] [address] Dec, [facility] [address] [facility] [id number] [address] [address] Nov, Sexually transmitted disease exposure Z20.2 [place] [address] [place] [address] Nov, Bipolar I disorder F31.9 ; Cannabis use disorder, mild, abuse F12.10 ; Social phobia, generalized F40.11 and ADHD (attention deficit hyperactivity disorder), inattentive type F90.0 [facility] [address] [facility] [place] [address] October, Dental examination Z01.20 [place] [address] [address] Aug, [facility] [address] [address] Jun, [place] [address] [address] May, [facility] [address] [address] May, Bipolar affective disorder F31.9 ; ADHD (attention deficit hyperactivity disorder), combined type F90.2 ; Social phobia F40.10 and Oppositional defiant behavior F91.3 [facility] [address] [place] [address] Apr, [place] [address] [address] Apr, ADHD (attention deficit hyperactivity di sorder), combined type F90.2 ; Social phobia F40.10 and Bipolar affective disorder F31.9 [facility] [address] [address] Feb, Bipolar disorder, unspecified 296.80 ; S ocial phobia 300.23 and Attention deficit disorder of childhood without mention of hyperactivity 314.00 [facility] [address] [address] Sep, [facility] [address] [address] Sep, [facility] [address] [address] October, [facility] [address] [address] October, [facility] [address] [address] Sep, [facility] [address] [address] Sep, [facility] [address] [address] Sep, [facility] [address] [address] Aug, [facility] [address] [address] Aug, [facility] [address] [address] Jul, [facility] [address] [address] Jul, [facility] [address] [address] Jul, [facility] [address] [address] Jul, [facility] [address] [address] Jun, [facility] [address] [id number] [place] [address] Jun, [facility] [address] [id number] [place] [address] May, [facility] [address] [id number] [place] [address] May, [facility] [address] [place] [address] Apr, [facility] [id number] [place] [address] Apr, [facility] [id number] [place] [address] Aug, [facility] [address] [id number] [place] [address] Jul, [facility] [id number] [place] [address] Jun, [facility] [id number] [place] [address] Jun, [facility] [id number] [place] [address] May, [facility] [address] [id number] [place] [address] May, IMMUNIZATIONS No Known Immunizations SOCIAL HISTORY Never Assessed REASON FOR VISIT PLAN OF CARE VITAL SIGNS Height 68 in 2013-08-30 Weight 147 lbs 2013-08-30 Heart Rate 72 bpm 2013-08-30 Blood pressure systolic 130 mmHg 2013-08-30 Blood pressure diastolic 90 mmHg 2013-08-30 MEDICATIONS No Known Medications RESULTS No Results [...] History No know Surgical history Hospitalization History [facility] 01/2015 Hospitalization History [facility] 10/2016 Hospitalization History [facility] 06/2015 Hospitalization History Overdose 2017 Hospitalization History via becky [facility] 01/2018 Hospitalization History overdose 10/2018
--- OUTSIDE RECORDS SUMMARY | 2019-09-04 02:05 | XMS REPORT ---
Author Author Abrahan REYES Organization [facility] Address [address] [place] [address] Care Team Providers Care Hose Operator Name Role Phone FE REYES Unavailable PROBLEMS Type Condition ICD9-CM Code [id number] Code Onset Dates Condition S tatus SNOMED Code Problem ADHD (attention deficit hyperactivity disorder), inattentive type F90.0 Active 81339017 Problem Cannabis use disorder, mild, abuse F12.10 Active 52379751 Problem Bipolar affective disorder F31.9 Act giuseppe 35446967 Problem Cannabis abuse F12.10 Active 92769 009 Problem Non-adherence to medical treatment Z91.19 Active 409944761 Problem Chronic post-traumatic stress disorder (PTSD) F43. 12 Active 762859495 Problem Psoriasis L40.9 Active 0918193 Problem Social phobia, generalized F40.11 Act giuseppe 48063341 Problem Mood disorder F39 Active 203970 05 Problem Bipolar I disorder F31.9 Active 3 43396317 Problem Bipolar affective disorder, currently depressed, moderate F31.32 Active 695224308 Problem PTSD (post-traumatic stress disorder) F43.10 Active 89608553 Problem Anxiety F41.9 Active 36237401 Problem Hammer toe of right foot M20.41 Activ e [id number] ALLERGIES No Information ENCOUNTERS Encounter Location Date Diagnosis [facility] [address] [facility] [id number] [address] [place] [address] Jun, Viral gastroenteritis A08.4 [facility] [address] [place], [place] [id number] 57 Mar, Mood disorder F39 [facility] [address] [facility] [id number] [address] [place] [address] October, Exposure to trichomonas Z20. 2 and Unprotected sexual intercourse Z72.51 [facility] [address] [facility] [id number] [place] [address] Aug, Bipolar affective disorder F31.9 ; Bipol ar affective disorder, currently depressed, moderate F31.32 ; Chronic post-traumatic stress disorder (PTSD) F43.12 and ADHD (attention deficit hyperactivity disorder), inattentive type F90.0 [facility] [address] [address] Jun, Bipolar affective disorder, currently de pressed, moderate F31.32 ; Social phobia, generalized F40.11 and Chronic post-traumatic stress disorder (PTSD) F43.12 [facility] [address] [place], [place] [id number] May, Anxiety F41.9 [facility] [address] [address] May, [place] [address] [address] Mar, [facility] [address] [address] Feb, Bipolar I disorder F31.9 ; ADHD (attenti on deficit hyperactivity disorder), inattentive type F90.0 ; Cannabis abuse F12.10 and Non-adherence to medical treatment Z91.19 [facility] [address] [address] Jan, [facility] [address] [id number] [place] [id number] Dec, Dental examination Z01.20 [facility] [address] [address] Nov, Bipolar I disorder F31.9 ; ADHD (attenti on deficit hyperactivity disorder), inattentive type F90.0 ; Cannabis use disorder, mild, abuse F12.10 and Non-adherence to medical treatment Z91.19 [facility] [address] [address] October, [facility] [address] [address] October, [facility] [address] [address] Jan, Bipolar affective disorder F31.9 ; Socia l phobia, generalized F40.11 ; Cannabis use disorder, mild, abuse F12.10 and ADHD (attention deficit hyperactivity disorder), inattentive type F90.0 [facility] [address] [facility] [id number] [address] [address] Dec, [facility] [address] [facility] [id number] [address] [place] [address] Nov, Sexually transmitted disease exposure Z20.2 [facility] [address] [address] Nov, Bipolar I disorder F31.9 ; Cannabis use disorder, mild, abuse F12.10 ; Social phobia, generalized F40.11 and ADHD (attention deficit hyperactivity disorder), inattentive type F90.0 [facility] [address] [id number] [place] [id number] October, Dental examination Z01.20 [facility] [address] [place] [id number] [place] [address] Aug, [facility] [address] [address] Jun, [facility] [address] [address] May, [facility] [address] [address] May, Bipolar affective disorder F31.9 ; ADHD (attention deficit hyperactivity disorder), combined type F90.2 ; Social phobia F40.10 and Oppositional defiant behavior F91.3 [facility] [address] [address] Apr, [place] [address] [address] Apr, ADHD (attention deficit hyperactivity di sorder), combined type F90.2 ; Social phobia F40.10 and Bipolar affective disorder F31.9 [facility] [address] [place] [address] [place] [address] Feb, Bipolar disorder, unspecified 296.80 ; S ocial phobia 300.23 and Attention deficit disorder of childhood without mention of hyperactivity 314.00 [facility] [address] [place] [id number] [place] [address] 14 Sep, 2014 [facility] [address] [place] [id number] [place] [address] Sep, [facility] [address] [place] [id number] [place] [address] October, [facility] [address] [place] [id number] [place] [address] October, [facility] [address] [place] [address] [id number] [place] [address] Sep, [facility] [address] [place] [id number] [place] [address] Sep, [facility] [address] [place] [address] [id number] [place] [address] Sep, [facility] [address] [place] [address] [id number] [place] [address] Aug, [facility] [address] [place] [address] [id number] [place] [address] Aug, [facility] [address] [place] [id number] [place] [address] Jul, [facility] [address] [place] [address] [id number] [place] [address] Jul, [facility] [address] [place] [id number] [place] [address] Jul, [facility] [address] [place] [id number] [place] [address] Jul, [facility] [address] [place] [id number] [place] [address] Jun, [facility] [address] [place] [address] [id number] [place] [address] Jun, [facility] [address] [id number] [place] [address] May, [facility] [address] [place] [address] [id number] [place] [address] May, [facility] [address] [id number] [place] [address] Apr, [facility] [address] [place] [address] [id number] [place] [address] Apr, [facility] [address] [place] [id number] [place] [address] Aug, [facility] [address] [address] Jul, [facility] [address] [place] [id number] [place] [address] Jun, [facility] [address] [place] [id number] [place] [address] Jun, [facility] [address] [place] [id number] [place] [address] May, [facility] [address] [place] [address] [id number] [place] [address] May, IMMUNIZATIONS No Known Immunizations SOCIAL HISTORY Never Assessed REASON FOR VISIT PLAN OF CARE VITAL SIGNS MEDICATIONS Unknown [...] [facility] 01/2015 Hospitalization History [facility] 10/2016 Hospitalization History [facility] 06/2015 Hospitalization History Overdose 2017 Hospitalization History [facility] 01/2018 Hospitalization History overdose 10/2018
--- OUTSIDE RECORDS SUMMARY | 2019-09-04 02:06 | XMS REPORT | Continuity of Care Document ---
Author Organization Unknown Address Unknown Phone Unavailable Allergies Active Description Code Type Severity Reaction Onset Reported/Identified Relationship to Patient Clinical Status Yes No Known Drug Allergies [id number] Drug Allergy Unknown N/A 04/06/2013 Yes Trileptal 300 mg tablet Drug Allergy N/A N/A 07/26/2013 Yes strawberry [id number] Drug Allerg y Unknown N/A 02/06/2018 Medications There is no data. Problems Date Dx Coded Attending Type Code Diagnosis Diagnosed By 08/15/2008 V20.2 WELL CHILD, ROUTINE 08/15/2008 V20.2 WELL CHILD, ROUTINE 08/15/2008 V20.2 WELL CHILD, ROUTINE 08/15/2008 AD FRANKEL APRN V20.2 WELL CHILD, ROUTINE 08/15/2008 JER LE LCPC V2 0.2 WELL CHILD, ROUTINE 08/15/2008 RAZ JEAN-BAPTISTE DO V20.2 WELL CHILD, ROUTINE 08/15/2008 OFE GARCIA, TORY V20.2 WELL CHILD, ROUTINE 08/15/2008 FE REYES APRN V20.2 WELL CHILD, ROUTINE 08/15/2008 TORY THAKUR MD V20.2 WELL CHILD, ROUTINE 08/15/2008 TORY THAKUR MD V20.2 WELL CHILD, ROUTINE 08/15/2008 FE REYES APRN V20.2 WELL CHILD, ROUTINE 08/15/2008 FE REYES APRN V20.2 WELL CHILD, ROUTINE 06/17/2012 466.0 BRON CHITIS, ACUTE 06/17/2012 V58.69 BLAS G-TERM (CURRENT) USE OF OTHER MEDICATIONS 06/17/2012 466.0 BRON CHITIS, ACUTE 06/17/2012 V58.69 BLAS G-TERM (CURRENT) USE OF OTHER MEDICATIONS 06/17/2012 466.0 BRON CHITIS, ACUTE 06/17/2012 V58.69 BLAS G-TERM (CURRENT) USE OF OTHER MEDICATIONS 06/17/2012 AD FRANKEL APRN 466.0 BRONCHITIS, ACUTE 06/17/2012 AD FRANKEL APRN R V58.69 LONG-TERM (CURRENT) USE OF OTHER MEDICATIONS 06/17/2012 JER LE LCPC 46 6.0 BRONCHITIS, ACUTE 06/17/2012 JER LE LCPC V58.69 LONG-TERM (CURRENT) USE OF OTHER MEDICATIONS 06/17/2012 ERLINDA JEAN-BAPTISTE DOA K 466.0 BRONCHITIS, ACUTE 06/17/2012 RAZ JEAN-BAPTISTE DO K V58.69 LONG-TERM (CURRENT) USE OF OTHER MEDICATIONS 06/17/2012 TORY THAKUR MD 466.0 BRONCHITIS, ACUTE 06/17/2012 TORY THAKUR MD V58.6 9 LONG-TERM (CURRENT) USE OF OTHER MEDICATIONS 06/17/2012 FE REYES APRN 466.0 BRONCHITIS, ACUTE 06/17/2012 FE REYES APRN V58.69 LONG-TERM (CURRENT) USE OF OTHER MEDICATIONS 06/17/2012 TORY THAKUR MD 466.0 BRONCHITIS, ACUTE 06/17/2012 TORY THAKUR MD V58.6 9 LONG-TERM (CURRENT) USE OF OTHER MEDICATIONS 06/17/2012 TORY THAKUR MD 466.0 BRONCHITIS, ACUTE 06/17/2012 TORY THAKUR MD V58.6 9 LONG-TERM (CURRENT) USE OF OTHER MEDICATIONS 06/17/2012 FE ERYES APRN 466.0 BRONCHITIS, ACUTE 06/17/2012 FE REYES APRN V58.69 LONG-TERM (CURRENT) USE OF OTHER MEDICATIONS 06/17/2012 FE REYES APRN 466.0 BRONCHITIS, ACUTE 06/17/2012 FE REYES APRN V58.69 LONG-TERM (CURRENT) USE OF OTHER MEDICATIONS 07/05/2012 787.03 vom iting 07/05/2012 787.03 vom iting 07/05/2012 AD FRANKEL APRN 787.03 vomiting 07/05/2012 JER LE LCPC 787.03 vomiting 07/05/2012 RAZ JEAN-BAPTISTE DO K 787.03 VOMITING 07/05/2012 TORY THAKUR MD 787.0 3 VOMITING 07/05/2012 FE REYES APRN 787.03 VOMITING 07/05/2012 TORY THAKUR MD 787.0 3 VOMITING 07/05/2012 TORY THAKUR MD 787.0 3 VOMITING 07/05/2012 FE REYES APRN 787.03 VOMITING 07/05/2012 FE REYES APRN 787.03 VOMITING 07/18/2012 780.60 fev er [as symptom] 07/18/2012 786.2 cough 07/18/2012 AD FRANKEL APRN R 780.60 fever [as symptom] 07/18/2012 AD FRANKEL APRN R 786.2 cough 07/18/2012 JER LE LCPC 780.60 fever [as symptom] 07/18/2012 JER LE LCPC 78 6.2 cough 07/18/2012 RAZ JEAN-BAPTISTE DO K 780.60 FEVER [ SYMPTOM] 07/18/2012 ERLINDA JEAN-BAPTISTE DOA K 786.2 COUGH 07/18/2012 TORY THAKUR MD 780.6 0 FEVER [ SYMPTOM] 07/18/2012 TORY THAKUR MD 786.2 COUGH 07/18/2012 FE REYES APRN 780.60 FEVER [ SYMPTOM] 07/18/2012 FE REYES APRN 786.2 COUGH 07/18/2012 TORY THAKUR MD 780.6 0 FEVER [ SYMPTOM] 07/18/2012 TORY THAKUR MD 786.2 COUGH 07/18/2012 TORY THAKUR MD 780.6 0 FEVER [ SYMPTOM] 07/18/2012 TORY THAKUR MD 786.2 COUGH 07/18/2012 FE REYES APRN 780.60 FEVER [ SYMPTOM] 07/18/2012 FE REYES APRN 786.2 COUGH 07/18/2012 FE REYES APRN 780.60 FEVER [ SYMPTOM] 07/18/2012 FE REYES APRN 786.2 COUGH 04/06/2013 SUKUMAR GARCIA, DUSTIN Vázquez Ot V71.4 OBSERV-ACCIDENT NEC 05/05/2013 JER LE LCPC 296.80 MO BIPOLAR NOS 05/05/2013 ESTIVEN CAMACHO RAZ K 296.80 MO BIPOLAR NOS 05/05/2013 TORY THAKUR MD 296.8 0 MO BIPOLAR NOS 05/05/2013 HOLLIE REYES APRNA Ana Cristina 296.80 MO BIPOLAR NOS 05/05/2013 OTRY THAKUR MD 296.8 0 MO BIPOLAR NOS 05/05/2013 TORY THAKUR MD 296.8 0 MO BIPOLAR NOS 05/05/2013 FE REYES APRN 296.80 MO BIPOLAR NOS 05/05/2013 HOLLIE REYES APRNA J 296.80 MO BIPOLAR NOS 08/01/2013 TORY THAKUR MD 314.0 0 ADHD INATTENTIVE 08/01/2013 TORY THAKUR MD 314.0 0 ADHD INATTENTIVE 08/01/2013 HOLLIE REYES APRNA J 314.00 ADHD INATTENTIVE 08/01/2013 HOLLIE REYES APRNA Ana Cristina 314.00 ADHD INATTENTIVE 08/30/2013 TORY THAKUR MD 300.2 3 AN SOCIAL PHOBIA 08/30/2013 FE REYES APRN J 300.23 AN SOCIAL PHOBIA 08/30/2013 FE REYES APRN 300.23 AN SOCIAL PHOBIA 11/03/2017 JOSEHOLLI Marte DO Ot F12.90 CANNABIS USE, UNSPECIFIED, UNCOMPLICATED 11/03/2017 JOSEHOLLI Marte DO Ot F17.210 NICOTINE DEPENDENCE, CIGARETTES, UNCOMPL 11/03/2017 JOSEHOLLI Marte DO Ot F19.90 OTHER PSYCHOACTIVE SUBSTANCE USE, UNSPEC 11/03/2017 [facility] Ot F31.9 BIPOLAR DISORDER, UNSPECIFIED 11/03/2017 JOSEHOLLI Marte DO Ot F60.9 PERSONALITY DISORDER, UNSPECIFIED 11/03/2017 JOSEHOLLI Marte DO Ot J45.909 UNSPECIFIED ASTHMA, UNCOMPLICATED 11/03/2017 JOSEHOLLI Marte DO Ot K92.0 HEMATEMESIS 11/03/2017 HOLLI SKAGGS DO Ot R00.0 TACHYCARDIA, UNSPECIFIED 11/03/2017 JOSEHOLLI Marte DO Ot R10.13 EPIGASTRIC PAIN 11/03/2017 JOSEHOLLI Marte DO Ot T39.312A POISONING BY PROPIONIC ACID DERIVATIVES, 11/03/2017 JOSEHOLLI Marte DO Ot T51.0X2A TOXIC EFFECT OF ETHANOL, INTENTIONAL AILEEN 11/03/2017 HOLLI SKAGGS DO Ot Z91.19 PATIENT'S NONCOMPLIANCE W OT MEDICAL TR 11/03/2017 HOLLI SKAGGS DO Ot Z91.5 PERSONAL HISTORY OF SELF-HARM 02/07/2018 DARIEL ROMERO MD Ot F12.90 CANNABIS USE, UNSPECIFIED, UNCOMPLICATED 02/07/2018 DARIEL ROMERO MD Ot F17.210 NICOTINE DEPENDENCE, CIGARETTES, UNCOMPL 02/07/2018 DARIEL ROMERO MD Ot F31 .9 BIPOLAR DISORDER, UNSPECIFIED 02/07/2018 DARIEL ROMERO MD Ot F60 .9 PERSONALITY DISORDER, UNSPECIFIED 02/07/2018 DARIEL ROMERO MD Ot F98 .8 OT BEHAV/EMOTN DISORD W ONSET USLY OCCU 02/07/2018 DARIEL ROMERO MD Ot I45.81 LONG QT SYNDROME 02/07/2018 DARIEL ROMERO MD Ot I95 .2 HYPOTENSION DUE TO DRUGS 02/07/2018 DARIEL ROMERO MD Ot J45.909 UNSPECIFIED ASTHMA, UNCOMPLICATED 02/07/2018 DARIEL ROMERO MD Ot J69 .0 PNEUMONITIS DUE TO INHALATION OF FOOD AN 02/07/2018 DARIEL ROMERO MD Ot J96.01 ACUTE RESPIRATORY FAILURE WITH HYPOXIA 02/07/2018 DARIEL ROMERO MD Ot R40 .0 SOMNOLENCE 02/07/2018 DARIEL ROMERO MD Ot R40.2432 MERLY COMA SCALE SCORE 3-8, EMR 02/07/2018 DARIEL ROMERO MD Ot T39.312A POISONING BY PROPIONIC ACID DERIVATIVES, 02/07/2018 DARIEL ROMERO MD Ot T42.6X2A POISN BY OT ANTIEPLPTC AND SED-HYPNTC D 02/07/2018 DARIEL ROMERO MD Ot T43.592A POISONING BY OT ANTIPSYCHOT/NEUROLEPT, 02/07/2018 DARIEL ROMERO MD Ot T44.6X2A POISONING BY ALPHA-ADRENOCPT ANTAGONISTS 02/07/2018 DARIEL ROMERO MD Ot T51.0X2A TOXIC EFFECT OF ETHANOL, INTENTIONAL AILEEN 02/07/2018 DARIEL ROMERO MD Ot Z91.19 PATIENT'S NONCOMPLIANCE W OTH MEDICAL TR 02/07/2018 DARIEL ROMERO MD Ot F12.90 CANNABIS USE, UNSPECIFIED, UNCOMPLICATED 02/07/2018 DARIEL ROMERO MD Ot F17.210 NICOTINE DEPENDENCE, CIGARETTES, UNCOMPL 02/07/2018 DARIEL ROMERO MD Ot F31 .9 BIPOLAR DISORDER, UNSPECIFIED 02/07/2018 DARIEL ROMERO MD Ot F60 .9 PERSONALITY DISORDER, UNSPECIFIED 02/07/2018 DARIEL ROMERO MD Ot F98 .8 OT BEHAV/EMOTN DISORD W ONSET USLY OCCU 02/07/2018 DARIEL ROMERO MD Ot I45.81 LONG QT SYNDROME 02/07/2018 DARIEL ROMERO MD Ot I95 .2 HYPOTENSION DUE TO DRUGS 02/07/2018 DARIEL ROMERO MD Ot J15 .9 UNSPECIFIED BACTERIAL PNEUMONIA 02/07/2018 DARIEL ROMERO MD Ot J45.909 UNSPECIFIED ASTHMA, UNCOMPLICATED 02/07/2018 DARIEL ROMERO MD Ot J69 .0 PNEUMONITIS DUE TO INHALATION OF FOOD AN 02/07/2018 DARIEL ROMERO MD Ot J96.01 ACUTE RESPIRATORY FAILURE WITH HYPOXIA 02/07/2018 DARIEL ROMERO MD Ot R40 .0 SOMNOLENCE 02/07/2018 DARIEL ROMERO MD Ot R40.2432 [...] TOXIC EFFECT OF ETHANOL, INTENTIONAL AILEEN 02/07/2018 HEATHER GARCIA, DARIEL Guerrero Ot Z91.19 PATIENT'S NONCOMPLIANCE W OTH MEDICAL TR 05/17/2018 BERMEOLAURA CAMACHO PHUONG Ot F17.21 0 NICOTINE DEPENDENCE, CIGARETTES, UNCOMPL 05/17/2018 BERMEOLAURA CAMACHO PHUONG Ot F31.9 BIPOLAR DISORDER, UNSPECIFIED 05/17/2018 BERMEOLAURA CAMACHO PHUONG Ot F60.9 PERSONALITY DISORDER, UNSPECIFIED 05/17/2018 JEAN-CLAUDE CAMACHO PHUONG Ot T43.59 2A POISONING BY OTH ANTIPSYCHOT/NEUROLEPT, 05/17/2018 BERMEOLAURA CAAMCHO PHUONG Ot Z79.89 9 OTHER PRODUCER (CURRENT) DRUG THERAPY 05/27/2018 JEAN-CLAUDE CAMACHO PHUONG Ot F17.21 0 NICOTINE DEPENDENCE, CIGARETTES, UNCOMPL 05/27/2018 BERMEOLAURA CAMACHO PHUONG Ot F31.9 BIPOLAR DISORDER, UNSPECIFIED 05/27/2018 BERMEOLAURA CAMACHO PHUONG Ot F60.9 PERSONALITY DISORDER, UNSPECIFIED 05/27/2018 JEAN-CLAUDE CAMACHO PHUONG Ot T43.59 2A POISONING BY OTH ANTIPSYCHOT/NEUROLEPT, 05/27/2018 JEAN-CLAUDE CAMACHO PHUONG Ot Z79.89 9 OTHER JAIL (CURRENT) DRUG THERAPY 10/31/2018 JEAN-CLAUDE CAMACHO PHUONG Ot F17.21 0 NICOTINE DEPENDENCE, CIGARETTES, UNCOMPL 10/31/2018 JEAN-CLAUDE CAMACHO PHUONG Ot F23 BRIEF PSYCHOTIC DISORDER 10/31/2018 JEAN-CLAUDE CAMACHO PHUONG Ot F31.9 BIPOLAR DISORDER, UNSPECIFIED 10/31/2018 JEAN-CLAUDE CAMACHO PHUONG Ot F98.8 OT BEHAV/EMOTN DISORD W ONSET USLY OCCU 10/31/2018 JEAN-CLAUDE CAMACHO PHUONG Ot J96.00 ACUTE RESPIRATORY FAILURE, UNSP W HYPOXI 10/31/2018 JEAN-CLAUDE CAMACHO PHUONG Ot T40.5X 1A POISONING BY COCAINE, ACCIDENTAL (UNINTE 10/31/2018 JEAN-CLAUDE CAMACHO PHUONG Ot T42.4X 1A POISONING BY BENZODIAZEPINES, ACCIDENTAL 10/31/2018 JEAN-CLAUDE CAMACHO PHUONG Ot T43.20 1A POISONING BY UNSP ANTIDEPRESSANTS, ACCID 10/31/2018 JEAN-CLAUDE CAMACHO PHUONG Ot T43.59 1A POISONING BY OTH ANTIPSYCHOT/NEUROLEPT, 10/31/2018 JEAN-CLAUDE CAMACHO PHUONG Ot T43.64 1A POISONING BY ECSTASY, ACCIDENTAL (UNINTE 10/31/2018 PHUONG BERMEO DO Ot T51.0X 1A TOXIC EFFECT OF ETHANOL, ACCIDENTAL (UNI 02/06/2019 YVON ASHLEY DO Ot K08.89 OTHER SPECIFIED DISORDERS OF TEETH AND S Procedures Code Description [place] [id number] STRE P A (IN-HOUSE) 07/18/2012 99638 PSYC H DIAGNOSTIC EVALUATION 05/08/2013 [id number] RE SPIRATORY VENTILATION, LESS THAN 24 CO 02/04/2018 [id number] IN SERTION OF ENDOTRACHEAL AIRWAY INTO TR 10/30/2018 [id number] RE SPIRATORY VENTILATION, LESS THAN 24 CO 10/30/2018 Results Test Result Range Complete blood count (CBC) with automate d white blood cell (WBC) differential - 11/02/17 18:25 Blood leukocytes automated count (number/volume) 16.1 10*3/uL 4.3-11.0 Blood erythrocytes automated count (number/volume) 5.49 10*6/uL 4.35-5.85 Venous blood hemoglobin measurement (mass/volume) 18.2 g/dL 13.3-17.7 Blood hematocrit (volume fraction) 50 % 40-54 Automated erythrocyte mean corpuscular volume 92 [ foz_us] 80-99 Automated erythrocyte mean corpuscular h emoglobin (mass per erythrocyte) 33 pg 25-34 Automated erythrocyte mean corpuscular h emoglobin concentration measurement (mass/volume) 36 g/dL 32-36 Automated erythrocyte distribution width ratio 13. 0 % 10.0- 14.5 Automated blood platelet count (count/volume) 355 10*3/uL [...] 10*3 1.0-4.0 Blood monocytes automated count (number/volume) 0. 8 10*3 0.0-1.0 Automated eosinophil count 0.0 10*3/uL 0 .0-0.3 Automated blood basophil count (count/volume) 0.0 10*3/uL 0.0-0.1 PT panel in platelet poor plasma by coag ulation assay - 11/02/17 18:25 Prothrombin time (PT) in platelet poor plasma by coagu lation assay 14.7 s 12.2-14.7 INR in platelet poor plasma or blood by coagulation as say 1.1 0.8-1.4 Activated partial thromboplastin time (a PTT) in platelet poor plasma bycoagulation assay - 11/02/17 18:25 Activated partial thromboplastin time (a PTT) in platelet poor plasma bycoagulation assay 28 s 24-35 Comprehensive metabolic panel - 11/02/17 18:25 Serum or plasma sodium measurement (moles/volume) 146 mmol/L 135-145 Serum or plasma potassium measurement (moles/volume) 3.4 mmol/L 3.6-5.0 Serum or plasma chloride measurement (moles/volume) 105 mmol/L 98-107 Carbon dioxide 23 mmol/L 21-32 Serum or plasma anion gap determination (moles/volume) 18 mmol/L 5-14 Serum or plasma urea nitrogen measurement (mass/volume ) 8 mg/dL 7-18 Serum or plasma creatinine measurement (mass/volume) 1.18 mg/dL 0.60-1.30 Serum or plasma urea nitrogen/creatinine mass ratio 7 NRG Serum or plasma creatinine measurement w ith calculation of estimated glomerular filtration rate > NRG Serum or plasma glucose measurement (mass/volume) 135 mg/dL 70-105 Serum or plasma calcium measurement (mass/volume) 9.6 mg/dL 8.5-10.1 Serum or plasma total bilirubin measurement (mass/volu me) 0.2 mg/dL 0.1-1.0 Serum or plasma alkaline phosphatase trisha surement (enzymatic activity/volume) 71 U/L 40-136 Serum or plasma aspartate aminotransfera se measurement (enzymatic activity/volume) 20 U/L 5-34 Serum or plasma alanine aminotransferase measurement (enzymatic activity/volume) 14 U/L 0-55 Serum or plasma protein measurement (mass/volume) 7.9 g/dL 6.4-8.2 Serum or plasma albumin measurement (mass/volume) 4.8 g/dL 3.2-4.5 Magnesium - 11/02/17 18:25 Magnesium 2.1 mg/dL 1.8-2.4 Serum or plasma amylase measurement (enz ymatic activity/volume) - 11/02/17 18:25 Serum or plasma amylase measurement (enzymatic activit y/volume) 43 U/L 25-125 Lipase - 11/02/17 18:25 Lipase 12 U/L 8-78 Serum or plasma thyrotropin measurement by detection limit <=0.05 miu/l (units/volume) - 11/02/17 18:25 Serum or plasma thyrotropin measurement by detection limit <=0.05 miu/l (units/volume) 0.65 u[iU]/mL 0.35-4.94 Blood manual differential performed dete ction - 11/02/17 18:25 Blood monocytes/100 leukocytes 6 [...] < mg/dL 5.0-20.0 Serum or plasma acetaminophen measuremen t (mass/volume) - 11/02/17 18:25 Serum or plasma acetaminophen measurement (mass/volume ) < ug/mL 10-30 Serum or plasma ethanol measurement (mas s/volume) - 11/02/17 18:25 Serum or plasma ethanol measurement (mass/volume) 71 mg/dL <10 Blood type T Indirect antibody screen pa tia - 11/02/17 19:05 ABO+Rh group AP NRG Transfusion band number [id number] NRG Blood group antibody screen NEGATIVE NR G Complete urinalysis with reflex to cultu re - 11/02/17 20:23 Urine color determination YELLOW NRG Urine clarity determination CLEAR NR G Urine pH measurement by test strip 8 5-9 Specific gravity of urine by test strip 1.010 1.016-1.022 Urine protein assay by test strip, semi-quantitative 2+ NEGATIVE Urine glucose detection by automated test strip NE GATIVE NEGATIVE Erythrocytes detection in urine sediment by light micr oscopy NEGATIVE NEGATIVE Urine ketones detection by automated test strip 1+ NEGATIVE Urine nitrite detection by test strip NEGATIVE NEGATIVE Urine total bilirubin detection by test strip 2+ NEGATIVE Urine urobilinogen measurement by automated test strip (mass/volume) 1 mg/dL NORMAL Urine leukocyte esterase detection by dipstick 1+ NEGATIVE Automated urine sediment erythrocyte cou nt by microscopy (number/high power field) RARE NRG Automated urine sediment leukocyte count by microscopy (number/high power field) [HPF] NRG Bacteria detection in urine sediment by light microsco py NONE NRG Squamous epithelial cells detection in u rine sediment by light microscopy 0-2 NRG Crystals detection in urine sediment by light microsco py NONE NRG Casts detection in urine sediment by light microscopy NONE NRG Mucus detection in urine sediment by light microscopy NEGATIVE NRG Complete urinalysis with reflex to culture NO NRG Urine drug screening test - 11/02/17 20: 23 Urine phencyclidine detection by screening method NEGATIVE NEGATIVE Urine benzodiazepines detection by screening method NEGATIVE NEGATIVE Urine cocaine detection NEGATIVE NEGATI VE Urine amphetamines detection by screening method N EGATIVE NEGATIVE Urine methamphetamine detection by screening method NEGATIVE NEGATIVE Urine cannabinoids detection by screening method P OSITIVE NEGATIVE Urine opiates detection by screening method NEGATI VE NEGATIVE Urine barbiturates detection POSITIVE N EGATIVE Screening urine tricyclic antidepressants detection NEGATIVE NEGATIVE Urine methadone detection by screening method NEGA TIVE NEGATIVE Urine oxycodone detection NEGATIVE NEGA TIVE Urine propoxyphene detection NEGATIVE N EGATIVE Methicillin resistant Staphylococcus aur eus (MRSA) screening culture - 11/02/17 21:10 Methicillin resistant Staphylococcus aureus (MRSA) scr eening culture NEG NRG Venous blood hemoglobin measurement (mas s/volume) - 11/03/17 00:36 Venous blood hemoglobin measurement (mass/volume) 14.9 g/dL 13.3-17.7 Complete blood count (CBC) with automate d white blood cell (WBC) differential - 11/03/17 03:43 Blood leukocytes automated count (number/volume) 10.7 10*3/uL 4.3-11.0 Blood erythrocytes automated count (number/volume) 4.53 10*6/uL 4.35-5.85 Venous blood hemoglobin measurement (mass/volume) 14.9 g/dL 13.3-17.7 Blood hematocrit (volume fraction) 43 % 40-54 Automated erythrocyte mean corpuscular volume 94 [ foz_us] 80-99 Automated erythrocyte mean corpuscular h emoglobin (mass per erythrocyte) 33 pg 25-34 Automated erythrocyte mean corpuscular h emoglobin concentration measurement (mass/volume) 35 g/dL 32-36 Automated erythrocyte distribution width ratio 13. 4 % 10.0- 14.5 Automated blood platelet count (count/volume) 277 10*3/uL [...] 10*3 1.0-4.0 Blood monocytes automated count (number/volume) 0. 7 10*3 0.0-1.0 Automated eosinophil count 0.0 10*3/uL 0 .0-0.3 Automated blood basophil count (count/volume) 0.0 10*3/uL 0.0-0.1 Comprehensive metabolic panel - 11/03/17 03:43 Serum or plasma sodium measurement (moles/volume) 143 mmol/L 135-145 Serum or plasma potassium measurement (moles/volume) 4.2 mmol/L 3.6-5.0 Serum or plasma chloride measurement (moles/volume) 114 mmol/L 98-107 Carbon dioxide 18 mmol/L 21-32 Serum or plasma anion gap determination (moles/volume) 11 mmol/L 5-14 Serum or plasma urea nitrogen measurement (mass/volume ) 10 mg/dL 7-18 Serum or plasma creatinine measurement (mass/volume) 0.91 mg/dL 0.60-1.30 Serum or plasma urea nitrogen/creatinine mass ratio 11 NRG Serum or plasma creatinine measurement w ith calculation of estimated glomerular filtration rate > NRG Serum or plasma glucose measurement (mass/volume) 83 mg/dL 70-105 Serum or plasma calcium measurement (mass/volume) 8.1 mg/dL 8.5-10.1 Serum or plasma total bilirubin measurement (mass/volu me) 0.4 mg/dL 0.1-1.0 Serum or plasma alkaline phosphatase trisha surement (enzymatic activity/volume) 53 U/L 40-136 Serum or plasma aspartate aminotransfera se measurement (enzymatic activity/volume) 14 U/L 5-34 Serum or plasma alanine aminotransferase measurement (enzymatic activity/volume) 8 U/L 0-55 Serum or plasma protein measurement (mass/volume) 5.8 g/dL 6.4-8.2 Serum or plasma albumin measurement (mass/volume) 3.6 g/dL 3.2-4.5 Complete blood count (CBC) with automate d white blood cell (WBC) differential - 05/16/18 11:10 Blood leukocytes automated count (number/volume) 12.9 10*3/uL 4.3-11.0 Blood erythrocytes automated count (number/volume) 4.97 10*6/uL 4.35-5.85 Venous blood hemoglobin measurement (mass/volume) 16.5 g/dL 13.3-17.7 Blood hematocrit (volume fraction) 46 % 40-54 Automated erythrocyte mean corpuscular volume 92 [ foz_us] 80-99 Automated erythrocyte mean corpuscular h emoglobin (mass per erythrocyte) 33 pg 25-34 Automated erythrocyte mean corpuscular h emoglobin concentration measurement (mass/volume) 36 g/dL 32-36 Automated erythrocyte distribution width ratio 12. 3 % 10.0- 14.5 Automated blood platelet count (count/volume) 254 10*3/uL [...] 10*3 1.0-4.0 Blood monocytes automated count (number/volume) 0. 8 10*3 0.0-1.0 Automated eosinophil count 0.1 10*3/uL 0 .0-0.3 Automated blood basophil count (count/volume) 0.0 10*3/uL 0.0-0.1 Comprehensive metabolic panel - 11/26/18 11:10 Serum or plasma sodium measurement (moles/volume) 139 mmol/L 135-145 Serum or plasma potassium measurement (moles/volume) 3.4 mmol/L 3.6-5.0 Serum or plasma chloride measurement (moles/volume) 103 mmol/L 98-107 Carbon dioxide 20 mmol/L 21-32 Serum or plasma anion gap determination (moles/volume) 16 mmol/L 5-14 Serum or plasma urea nitrogen measurement (mass/volume ) 15 mg/dL 7-18 Serum or plasma creatinine measurement (mass/volume) 1.19 mg/dL 0.60-1.30 Serum or plasma urea nitrogen/creatinine mass ratio 13 NRG Serum or plasma creatinine measurement w ith calculation of estimated glomerular filtration rate > NRG Serum or plasma glucose measurement (mass/volume) 106 mg/dL 70-105 Serum or plasma calcium measurement (mass/volume) 9.9 mg/dL 8.5-10.1 Serum or plasma total bilirubin measurement (mass/volu me) 1.1 mg/dL 0.1-1.0 Serum or plasma alkaline phosphatase trisha surement (enzymatic activity/volume) 58 U/L 40-136 Serum or plasma aspartate aminotransfera se measurement (enzymatic activity/volume) 20 U/L 5-34 Serum or plasma alanine aminotransferase measurement (enzymatic activity/volume) 17 U/L 0-55 Serum or plasma protein measurement (mass/volume) 7.7 g/dL 6.4-8.2 Serum or plasma albumin measurement (mass/volume) 4.8 g/dL 3.2-4.5 Serum or plasma salicylates measurement (mass/volume) - 05/16/18 11:10 Serum or plasma salicylates measurement (mass/volume) < mg/dL 5.0-20.0 Serum or plasma acetaminophen measuremen t (mass/volume) - 05/16/18 11:10 Serum or plasma acetaminophen measurement (mass/volume ) < ug/mL 10-30 Serum or plasma ethanol measurement (mas s/volume) - 05/16/18 11:10 Serum or plasma ethanol measurement (mass/volume) < mg/dL <10 Urine drug screening test - 05/16/18 20: 55 Urine phencyclidine detection by screening method NEGATIVE NEGATIVE Urine benzodiazepines detection by screening method NEGATIVE NEGATIVE Urine cocaine detection NEGATIVE NEGATI VE Urine amphetamines detection by screening method N EGATIVE NEGATIVE Urine methamphetamine detection by screening method NEGATIVE NEGATIVE Urine cannabinoids detection by screening method P OSITIVE NEGATIVE Urine opiates detection by screening method NEGATI VE NEGATIVE Urine barbiturates detection NEGATIVE N EGATIVE Screening urine tricyclic antidepressants detection POSITIVE NEGATIVE Urine methadone detection by screening method NEGA TIVE NEGATIVE Urine oxycodone detection NEGATIVE NEGA TIVE Urine propoxyphene detection NEGATIVE N EGATIVE Blood lactic acid measurement (moles/vol ume) - 10/30/18 16:10 Blood lactic acid measurement (moles/volume) 3.59 mmol/L 0.50-2.00 Bacterial blood culture - 10/30/18 16:10 Bacterial blood culture NG NRG Complete blood count (CBC) with automate d white blood cell (WBC) differential - 10/30/18 16:30 Blood leukocytes automated count (number/volume) 8.3 10*3/uL 4.3-11.0 Blood erythrocytes automated count (number/volume) 4.78 10*6/uL 4.35-5.85 Venous blood hemoglobin measurement (mass/volume) 15.6 g/dL 13.3-17.7 Blood hematocrit (volume fraction) 45 % 40-54 Automated erythrocyte mean corpuscular volume 93 [ foz_us] 80-99 Automated erythrocyte mean corpuscular h emoglobin (mass per erythrocyte) 33 pg 25-34 Automated erythrocyte mean corpuscular h emoglobin concentration measurement (mass/volume) 35 g/dL 32-36 Automated erythrocyte distribution width ratio 13. 4 % 10.0- 14.5 Automated blood platelet count (count/volume) 257 10*3/uL [...] 10*3 1.0-4.0 Blood monocytes automated count (number/volume) 0. 6 10*3 0.0-1.0 Automated eosinophil count 0.1 10*3/uL 0 .0-0.3 Automated blood basophil count (count/volume) 0.0 10*3/uL 0.0-0.1 Comprehensive metabolic panel - 10/30/18 16:30 Serum or plasma sodium measurement (moles/volume) 141 mmol/L 135-145 Serum or plasma potassium measurement (moles/volume) 4.0 mmol/L 3.6-5.0 Serum or plasma chloride measurement (moles/volume) 108 mmol/L 98-107 Carbon dioxide 21 mmol/L 21-32 Serum or plasma anion gap determination (moles/volume) 12 mmol/L 5-14 Serum or plasma urea nitrogen measurement (mass/volume ) 11 mg/dL 7-18 Serum or plasma creatinine measurement (mass/volume) 1.20 mg/dL 0.60-1.30 Serum or plasma urea nitrogen/creatinine mass ratio 9 NRG Serum or plasma creatinine measurement w ith calculation of estimated glomerular filtration rate > NRG Serum or plasma glucose measurement (mass/volume) 259 mg/dL 70-105 Serum or plasma calcium measurement (mass/volume) 9.2 mg/dL 8.5-10.1 Serum or plasma total bilirubin measurement (mass/volu me) 0.6 mg/dL 0.1-1.0 Serum or plasma alkaline phosphatase trisha surement (enzymatic activity/volume) 55 U/L 40-136 Serum or plasma aspartate aminotransfera se measurement (enzymatic activity/volume) 16 U/L 5-34 Serum or plasma alanine aminotransferase measurement (enzymatic activity/volume) 14 U/L 0-55 Serum or plasma protein measurement (mass/volume) 6.7 g/dL 6.4-8.2 Serum or plasma albumin measurement (mass/volume) 4.3 g/dL 3.2-4.5 CALCIUM CORRECTED 9.0 mg/dL 8.5-10.1 Serum or plasma salicylates measurement (mass/volume) - 10/30/18 16:30 Serum or plasma salicylates measurement (mass/volume) < mg/dL 5.0-20.0 Serum or plasma acetaminophen measuremen t (mass/volume) - 10/30/18 16:30 Serum or plasma acetaminophen measurement (mass/volume ) < ug/mL 10-30 Serum or plasma ethanol measurement (mas s/volume) - 10/30/18 16:30 Serum or plasma ethanol measurement (mass/volume) < mg/dL <10 Serum or plasma thyrotropin measurement by detection limit <=0.05 miu/l (units/volume) - 10/30/18 16:30 Serum or plasma thyrotropin measurement by detection limit <=0.05 miu/l (units/volume) 0.78 u[iU]/mL 0.35-4.94 Capillary blood glucose measurement by g lucometer (mass/volume) - 10/30/18 16:43 Capillary blood glucose measurement by glucometer (mas s/volume) 203 mg/dL 70-110 Complete urinalysis with reflex to cultu re - 10/30/18 17:15 Urine color determination YELLOW NRG Urine clarity determination CLEAR NR G Urine pH measurement by test strip 6.5 5-9 Specific gravity of urine by test strip 1.010 1.016-1.022 Urine protein assay by test strip, semi-quantitative 1+ NEGATIVE Urine glucose detection by automated test strip 2+ NEGATIVE Erythrocytes detection in urine sediment by light micr oscopy NEGATIVE NEGATIVE Urine ketones detection by automated test strip NE GATIVE NEGATIVE Urine nitrite detection by test strip NEGATIVE NEGATIVE Urine total bilirubin detection by test strip NEGA TIVE NEGATIVE Urine urobilinogen measurement by automated test strip (mass/volume) NORMAL NORMAL Urine leukocyte esterase detection by dipstick 1+ NEGATIVE Automated urine sediment erythrocyte cou nt by microscopy (number/high power field) NONE NRG Automated urine sediment leukocyte count by microscopy (number/high power field) [HPF] NRG Bacteria detection in urine sediment by light microsco py TRACE NRG Squamous epithelial cells detection in u rine sediment by light microscopy 0-2 NRG Crystals detection in urine sediment by light microsco py NONE NRG Casts detection in urine sediment by light microscopy PRESENT NRG Mucus detection in urine sediment by light microscopy MODERATE NRG Complete urinalysis with reflex to culture YES NRG Hyaline casts detection in urine sediment by light indra roscopy RARE NRG Urine drug screening test - 10/30/18 17: 15 Urine phencyclidine detection by screening method NEGATIVE NEGATIVE Urine benzodiazepines detection by screening method POSITIVE NEGATIVE Urine cocaine detection NEGATIVE NEGATI VE Urine amphetamines detection by screening method P OSITIVE NEGATIVE Urine methamphetamine detection by screening method POSITIVE NEGATIVE Urine cannabinoids detection by screening method P OSITIVE NEGATIVE Urine opiates detection by screening method NEGATI VE NEGATIVE Urine barbiturates detection NEGATIVE N EGATIVE Screening urine tricyclic antidepressants detection NEGATIVE NEGATIVE Urine methadone detection by screening method NEGA TIVE NEGATIVE Urine oxycodone detection NEGATIVE NEGA TIVE Urine propoxyphene detection NEGATIVE N EGATIVE Bacterial urine culture - 10/30/18 17:15 Bacterial urine culture NG NRG Sputum Gram stain - 10/30/18 17:56 Sputum Gram stain Mixed Bacterial Jesenia NRG Bacterial sputum culture - 10/30/18 17:5 6 QUANTITY OF GROWTH . NRG Bacterial sputum culture USUAL RESP NRG Arterial blood gas measurement - 9 18:03 Blood pCO2 40 mm[Hg] 35-45 Blood pO2 543 mm[Hg] 79-93 Arterial blood bicarbonate measurement (moles/volume) 24 mmol/L 23-27 Arterial blood base excess by calculation -1.1 mmo l/L -2.5-2.5 Arterial blood oxygen saturation measurement 100 % 94-100 * Inhaled oxygen flow rate 100% NRG Arterial blood pH measurement with patient temperature correction 7.38 7.37-7.43 Arterial blood carbon dioxide, total measurement (mole s/volume) 24.8 mmol/L 21.0-31.0 Body site RR NRG Assessment of wrist artery patency prior to arterial p uncture YES-POS NRG Setting of ventilation mode YES NR G Measurement of body temperature 96.4 NRG Bacterial blood culture - 10/30/18 18:53 Bacterial blood culture NG NRG Methicillin resistant Staphylococcus aur eus (MRSA) screening culture - 10/30/18 19:45 Methicillin resistant Staphylococcus aureus (MRSA) scr eening culture NEG NRG Serum or plasma lactate measurement (mol es/volume) - 10/30/18 19:51 Serum or plasma lactate measurement (moles/volume) 1.37 mmol/L 0.50-2.00 Capillary blood glucose measurement by g lucometer (mass/volume) - 10/30/18 20:48 Capillary blood glucose measurement by glucometer (mas s/volume) 77 mg/dL 70-110 Capillary blood glucose measurement by g lucometer (mass/volume) - 10/30/18 23:38 Capillary blood glucose measurement by glucometer (mas s/volume) 73 mg/dL 70-110 Complete blood count (CBC) with automate d white blood cell (WBC) differential - 10/31/18 03:25 Blood leukocytes automated count (number/volume) 10.6 10*3/uL 4.3-11.0 Blood erythrocytes automated count (number/volume) 4.36 10*6/uL 4.35-5.85 Venous blood hemoglobin measurement (mass/volume) 14.5 g/dL 13.3-17.7 Blood hematocrit (volume fraction) 41 % 40-54 Automated erythrocyte mean corpuscular volume 94 [ foz_us] 80-99 Automated erythrocyte mean corpuscular h emoglobin (mass per erythrocyte) 33 pg 25-34 Automated erythrocyte mean corpuscular h emoglobin concentration measurement (mass/volume) 35 g/dL 32-36 Automated erythrocyte distribution width ratio 13. 6 % 10.0- 14.5 Automated blood platelet count (count/volume) 235 10*3/uL 130-400 Automated blood platelet mean volume measurement 10.2 [foz_us] 7.4-10.4 Automated blood neutrophils/100 leukocytes 63 % 42-75 Automated blood lymphocytes/100 leukocytes 26 % 12-44 Blood monocytes/100 leukocytes 9 % 0-12 Automated blood eosinophils/100 leukocytes 1 % 0-10 Automated blood basophils/100 leukocytes 0 % 0-10 Blood neutrophils automated count (number/volume) 6.7 10*3 1.8-7.8 Blood lymphocytes automated count (number/volume) 2.8 10*3 1.0-4.0 Blood monocytes automated count (number/volume) 1. 0 10*3 0.0-1.0 Automated eosinophil count 0.2 10*3/uL 0 .0-0.3 Automated blood basophil count (count/volume) 0.0 10*3/uL 0.0-0.1 Comprehensive metabolic panel - 10/31/18 03:25 Serum or plasma sodium measurement (moles/volume) 144 mmol/L 135-145 Serum or plasma potassium measurement (moles/volume) 3.8 mmol/L 3.6-5.0 Serum or plasma chloride measurement (moles/volume) 111 mmol/L 98-107 Carbon dioxide 21 mmol/L 21-32 Serum or plasma anion gap determination (moles/volume) 12 mmol/L 5-14 Serum or plasma urea nitrogen measurement (mass/volume ) 11 mg/dL 7-18 Serum or plasma creatinine measurement (mass/volume) 0.91 mg/dL 0.60-1.30 Serum or plasma urea nitrogen/creatinine mass ratio 12 NRG Serum or plasma creatinine measurement w ith calculation of estimated glomerular filtration rate > NRG Serum or plasma glucose measurement (mass/volume) 79 mg/dL 70-105 Serum or plasma calcium measurement (mass/volume) 9.1 mg/dL 8.5-10.1 Serum or plasma total bilirubin measurement (mass/volu me) 0.8 mg/dL 0.1-1.0 Serum or plasma alkaline phosphatase trisha surement (enzymatic activity/volume) 53 U/L 40-136 Serum or plasma aspartate aminotransfera se measurement (enzymatic activity/volume) 17 U/L 5-34 Serum or plasma alanine aminotransferase measurement (enzymatic activity/volume) 13 U/L 0-55 Serum or plasma protein measurement (mass/volume) 5.9 g/dL 6.4-8.2 Serum or plasma albumin measurement (mass/volume) 3.8 g/dL 3.2-4.5 CALCIUM CORRECTED 9.3 mg/dL 8.5-10.1 Serum or plasma phosphate measurement (m ass/volume) - 10/31/18 03:25 Serum or plasma phosphate measurement (mass/volume) 2.9 mg/dL 2.3-4.7 Magnesium - 10/31/18 03:25 Magnesium 1.9 mg/dL 1.8-2.4 Arterial blood gas measurement - 9 03:40 Blood pCO2 41 mm[Hg] 35-45 Blood pO2 73 mm[Hg] 79-93 Arterial blood bicarbonate measurement (moles/volume) 25 mmol/L 23-27 Arterial blood base excess by calculation 0.9 mmol /L -2.5-2.5 Arterial blood oxygen saturation measurement 96 % 94-100 * Inhaled oxygen flow rate 21% FIO2 NRG Arterial blood pH measurement with patient temperature correction 7.40 7.37-7.43 Arterial blood carbon dioxide, total measurement (mole s/volume) 26.6 mmol/L 21.0-31.0 Body site RIGHT RADIAL NRG Assessment of wrist artery patency prior to arterial p uncture POSITIVE NRG Setting of ventilation mode YES NR G Measurement of body temperature 97.1 NRG Encounters ACCT No. Visit Date/Time Discharge Status Pt. Type Provider Facility Loc./Unit Complaint [id number] 09/27/2013 10:23:00 09/27/2013 23:59: 59 CLS Outpatient FE REYES APRN [id number] 09/27/2013 10:23:00 09/27/2013 23:59: 59 CLS Outpatient FE REYES APRN [id number] 08/30/2013 09:22:00 08/30/2013 23:59: 59 CLS Outpatient TORY THAKUR MD [id number] 08/01/2013 11:06:00 08/01/2013 23:59: 59 CLS Outpatient TORY THAKUR MD [id number] 07/05/2013 08:59:00 07/05/2013 23:59: 59 CLS Outpatient FE REYES APRN [id number] 07/05/2013 08:59:00 07/05/2013 23:59: 59 CLS Outpatient TORY THAKUR MD [id number] 05/22/2013 11:54:00 05/22/2013 23:59: 59 CLS Outpatient ESTIVEN CAMACHO RAZ K [id number] 05/05/2013 13:46:00 05/05/2013 23:59: 59 CLS Outpatient JER LE LCPC [id number] 07/18/2012 14:04:00 07/18/2012 23:59: 59 CLS Outpatient [id number] 07/18/2012 14:04:00 07/18/2012 23:59: 59 CLS Outpatient AD FRANKEL APRN [id number] 07/05/2012 14:37:00 07/05/2012 23:59: 59 CLS Outpatient [id number] 06/17/2012 11:42:00 06/17/2012 23:59: 59 CLS Outpatient [id number] 02/06/2019 01:41:00 019 02:55:00 DIS Emergency GABI , YVON K [facility] ER TOOTH ACHE [id number] 10/30/2018 18:30:00 019 17:45:00 DIS Inpatient PHUONG BERMEO DO, V [facility] ICU O/D,METH,BENZOS,BUSPAR, LEVAPRO,NOT PROTECTING AIRW [id number] 05/16/2018 12:35:00 11:57:00 DIS Inpatient PHUONG BERMEO DO, V [facility] ICU SUICIDE ATTEMPT OVERDOS E [id number] 02/04/2018 22:24:00 018 11:35:00 DIS Inpatient HEATHER GARCIA, DARIEL Guerrero [facility] 4TH OVERDOSE [id number] 11/02/2017 20:40:00 018 13:52:00 DIS Inpatient HOLLI SKAGGS DO [facility] ICU INTENTIONAL JACKELIN G OVERDOSE - NARPOXEN+ALCOHOL [id number] 04/06/2013 11:55:00 013 13:31:00 DIS Emergency SUKUMAR GARCIA, DUSTIN Vázquez [facility] ER BACK PAIN/PREVI OUS [facility] [id number] 06/22/2019 14:10:00 06/22/2019 23:59:5 9 CLS Outpatient [facility]
== END 2019-09-03 17:01 | disposition home or self-care (01) ==
LOC: EDUNIT# 15:39 → ER 15:40
DX: S61.411A Laceration without foreign body of right hand, initial encounter (principal); F31.9 Bipolar disorder, unspecified; F17.210 Nicotine dependence, cigarettes, uncomplicated; Z23 Encounter for immunization; Z88.0 Allergy status to penicillin; Z82.49 Family history of ischemic heart disease and other diseases of the circulatory system; W26.0XXA Contact with knife, initial encounter
CPT/HCPCS: 12002; 12053; 90715

== ENCOUNTER 2019-11-15 19:10 | Emergency (ER) | payer MEDICARE, MEDICAID ==
[~2019-11-15] VITALS: Ht 172 cm; Wt 66.0 kg
[~2019-11-15 19:10] MED LIST changes: +SULF1TAB35 PO
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
[2019-11-15] MEDS ORDERED: HYDROcodone/APAP 5 MG/325 MG (LORTAB) TAB PO ONE (19:45)
--- NOTE | 2019-11-15 20:19 | Diagnostic Imaging Report ---
INDICATION: Injury five days ago, pain. EXAMINATION: FINDINGS: There is no fracture, dislocation or acute articular incongruity. In particular, the 4th and 5th metacarpals, where symptoms are greatest, appear unremarkable. IMPRESSION: No acute appearing abnormality. Dictated by: Dictated on workstation # [id number]
[2019-11-15 20:25] VITALS: BP 115/71
--- OUTSIDE RECORDS SUMMARY | 2019-11-15 21:57 | XMS REPORT ---
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 12 Active 629848292 Problem Psoriasis L40.9 Active 3164695 Problem Social phobia, generalized F40.11 Act giuseppe 04964771 Problem Mood disorder F39 Active 984142 05 Problem Bipolar I disorder F31.9 Active 3 11297229 Problem Bipolar affective disorder, currently depressed, moderate F31.32 Active 736653706 Problem PTSD (post-traumatic stress disorder) F43.10 Active 23795909 Problem Anxiety F41.9 Active 02396414 Problem Hammer toe of right foot M20.41 Activ e [id number] ALLERGIES No Information ENCOUNTERS Encounter Location Date Diagnosis [facility] [address] [facility] [id number] [address] [place] [address] Aug, [facility] [address] [facility] [id number] [address] [place] [address] Jul, Viral illness B34.9 [facility] [address] [facility] [id number] [address] [place] [address] Jun, Viral gastroenteritis A08.4 [facility] [address] [place], [place] [id number] 57 Mar, Mood disorder F[address] [facility] [address] [facility] [id number] [address] [place] [address] 14 Oct, 2018 Exposure to trichomonas Z20. 2 and Unprotected sexual intercourse Z72.51 [facility] [address] [facility] [id number] [address] [place] [address] Aug, Bipolar affective disorder F 31.9 ; Bipolar affective disorder, currently depressed, moderate F31.32 ; Chronic post-traumatic stress disorder (PTSD) F43.12 and ADHD (attention deficit hyperactivity disorder), inattentive type F90.0 [facility] [address] [facility] [id number] [address] [place] [address] Jun, Bipolar affective disorder, currently depressed, moderate F31.32 ; Social phobia, generalized F40.11 and Chronic post-traumatic stress disorder (PTSD) F43.12 [facility] [address] [place], [place] [id number] 57 May, Anxiety F41.9 [facility] [address] [address] May, [facility] [address] [place] [id number] [address] [place] [address] Mar, [facility] [address] [place] [id number] [address] [place] [address] Feb, Bipolar I disorder F31.9 ; A DHD (attention deficit hyperactivity disorder), inattentive type F90.0 ; Cannabis abuse F12.10 and Non-adherence to medical treatment Z91.19 [facility] [address] [place] [address] Jan, [facility] [address] [facility] [id number] [address] [place] [id number] Dec, Dental examination Z01.20 [facility] [address] [place] [id number] [address] [place] [address] Nov, Bipolar I disorder F31.9 ; A DHD (attention deficit hyperactivity disorder), inattentive type F90.0 ; Cannabis use disorder, mild, abuse F12.10 and Non-adherence to medical treatment Z91.19 [facility] [address] [facility] [id number] [address] [place] [address] October, [facility] [address] [facility] [id number] [address] [place] [address] October, [facility] [address] [facility] [id number] [address] [place] [address] Jan, Bipolar affective disorder F 31.9 ; Social phobia, generalized F40.11 ; Cannabis use disorder, mild, abuse F12.10 and ADHD (attention deficit hyperactivity disorder), inattentive type F90.0 [facility] [address] [facility] [id number] [address] [place] [address] Dec, [facility] [address] [facility] [id number] [address] [place] [address] Nov, Sexually transmitted disease exposure Z20.2 [facility] [address] [facility] [id number] [address] [place] [address] Nov, Bipolar I disorder F31.9 ; C annabis use disorder, mild, abuse F12.10 ; Social phobia, generalized F40.11 and ADHD (attention deficit hyperactivity disorder), inattentive type F90.0 [facility] [address] [id number] [address] [place] [id number] October, Dental examination Z01.20 [facility] [address] [facility] [id number] [address] [place] [address] Aug, [facility] [address] [facility] [id number] [address] [place] [address] Jun, [facility] [address] [facility] [id number] [address] [place] [address] May, [facility] [address] [facility] [id number] [address] [place] [address] May, Bipolar affective disorder F 31.9 ; ADHD (attention deficit hyperactivity disorder), combined type F90.2 ; Social phobia F40.10 and Oppositional defiant behavior F91.3 [facility] [address] [facility] [id number] [address] [place] [address] 04 Apr, 2015 [facility] [address] [facility] [id number] [address] [place] [address] Apr, ADHD (attention deficit hype ractivity disorder), combined type F90.2 ; Social phobia F40.10 and Bipolar affective disorder F31.9 [facility] [address] [facility] [id number] [address] [place] [address] Feb, Bipolar disorder, unspecifie d 296.80 ; Social phobia 300.23 and Attention deficit disorder of childhood without mention of hyperactivity 314.00 [facility] [address] [facility] [id number] [address] [place] [address] Sep, [facility] [address] [facility] [id number] [address] [place] [address] Sep, [facility] [address] [facility] [id number] [address] [place] [address] October, [facility] [address] [facility] [id number] [address] [place] [address] October, [facility] [address] [facility] [id number] [address] [place] [address] Sep, [facility] [address] [facility] [id number] [address] [place] [address] Sep, [facility] [address] [facility] [id number] [address] [place] [address] Sep, [facility] [address] [facility] [id number] [address] [place] [address] Aug, [facility] [address] [facility] [id number] [address] [place] [address] Aug, [facility] [address] [facility] [id number] [address] [place] [address] Jul, [facility] [address] [facility] [id number] [address] [place] [address] Jul, [facility] [address] [id number] [address] [place] [address] Jul, [facility] [address] [id number] [address] [place] [address] Jul, [facility] [address] [id number] [address] [place] [address] Jun, [facility] [address] [id number] [address] [place] [address] Jun, [facility] [address] [id number] [address] [place] [address] May, [facility] [address] [id number] [address] [place] [address] May, [facility] [address] [id number] [address] [place] [address] Apr, [facility] [address] [id number] [address] [place] [address] Apr, [facility] [address] [id number] [address] [place] [address] Aug, [facility] [address] [id number] [address] [place] [address] Jul, [facility] [address] [id number] [address] [place] [address] Jun, [facility] [address] [id number] [address] [place] [address] Jun, [facility] [address] [id number] [address] [place] [address] May, [facility] [address] [id number] [address] [place] [address] May, IMMUNIZATIONS No Known Immunizations SOCIAL HISTORY Never Assessed REASON FOR VISIT PLAN OF CARE VITAL SIGNS Height 67.25 in 2013-07-05 Weight 143.38 lbs 2013-07-05 Temperature 98.2 degrees Fahrenheit 2013-07-05 Heart Rate 76 bpm 2013-07-05 Respiratory Rate 24 2013-07-05 Blood pressure systolic 122 mmHg 2013-07-05 Blood pressure diastolic 82 mmHg 2013-07-05 MEDICATIONS Unknown Medications RESULTS No Results PROCEDURES [...] [facility] 01/2015 Hospitalization History [facility] 10/2016 Hospitalization History [facility] 06/2015 Hospitalization History Overdose 2017 Hospitalization History via becky [facility] 01/2018 Hospitalization History overdose 10/2018
--- OUTSIDE RECORDS SUMMARY | 2019-11-15 21:57 | XMS REPORT ---
Author Author Abrahan REYES Organization [facility] Address [address] [place] [address] Care Team Providers Care Solar Sales Specialist Name Role Phone FE REYES Unavailable PROBLEMS Type Condition ICD9-CM Code [id number] Code Onset Dates Condition S tatus SNOMED Code Problem ADHD (attention deficit hyperactivity disorder), inattentive type F90.0 Active 13730130 Problem Cannabis use disorder, mild, abuse F12.10 Active 06646639 Problem Bipolar affective disorder F31.9 Act giuseppe 72276991 Problem Cannabis abuse F12.10 Active 12653 009 Problem Non-adherence to medical treatment Z91.19 Active 319836717 Problem Chronic post-traumatic stress disorder (PTSD) F43. 12 Active 303130485 Problem Psoriasis L40.9 Active 2394134 Problem Social phobia, generalized F40.11 Act giuseppe 01013550 Problem Mood disorder F39 Active 863402 05 Problem Bipolar I disorder F31.9 Active 3 99184627 Problem Bipolar affective disorder, currently depressed, moderate F31.32 Active 120238197 Problem PTSD (post-traumatic stress disorder) F43.10 Active 11386301 Problem Anxiety F41.9 Active 77411927 Problem Hammer toe of right foot M20.41 Activ e [id number] ALLERGIES No Information ENCOUNTERS Encounter Location Date Diagnosis [facility] [address] [facility] [id number] [place] [address] Aug, [facility] [address] [facility] [id number] [address] [place] [address] Jul, Viral illness B34.9 [facility] [address] [facility] [id number] [address] [place] [address] Jun, Viral gastroenteritis A08.4 [facility] [address] [place], [place] [id number] 57 Mar, Mood disorder F39 [facility] [address] [facility] [id number] [address] [place] [address] 14 Oct, 2018 Exposure to trichomonas Z20. 2 and Unprotected sexual intercourse Z72.51 [place] [address] [place] [id number] [place] [address] Aug, Bipolar affective disorder F31.9 ; Bipol ar affective disorder, currently depressed, moderate F31.32 ; Chronic post-traumatic stress disorder (PTSD) F43.12 and ADHD (attention deficit hyperactivity disorder), inattentive type F90.0 [facility] [address] [address] Jun, Bipolar affective disorder, currently de pressed, moderate F31.32 ; Social phobia, generalized F40.11 and Chronic post-traumatic stress disorder (PTSD) F43.12 [facility] [address] [place], [place] [id number] 57 May, Anxiety F41.[address] [address] May, [place] [address] [address] Mar, [address] [address] 27 Feb, 2018 Bipolar I disorder F31.9 ; ADHD (attenti on deficit hyperactivity disorder), inattentive type F90.0 ; Cannabis abuse F12.10 and Non-adherence to medical treatment Z91.19 [place] [address] [place] [id number] [place] [address] Jan, [facility] [address] [id number] [place] [id number] Dec, Dental examination Z01.[address] [address] 19 Nov, 2017 Bipolar I disorder F31.9 ; ADHD (attenti on deficit hyperactivity disorder), inattentive type F90.0 ; Cannabis use disorder, mild, abuse F12.10 and Non-adherence to medical treatment Z91.19 [place] [address] [place] [address] [place] [address] October, [facility] [address] [address] October, [facility] [address] [address] Jan, Bipolar affective disorder F31.9 ; Socia l phobia, generalized F40.11 ; Cannabis use disorder, mild, abuse F12.10 and ADHD (attention deficit hyperactivity disorder), inattentive type F90.0 [facility] [address] [place] [id number] [address] [place] [address] Dec, [facility] [address] [place] [id number] [place] [address] Nov, Sexually transmitted disease exposure Z20.2 [place] [address] [address] Nov, Bipolar I disorder F31.9 ; Cannabis use disorder, mild, abuse F12.10 ; Social phobia, generalized F40.11 and ADHD (attention deficit hyperactivity disorder), inattentive type F90.0 [facility] [address] [id number] [place] [id number] October, Dental examination Z01.20 [facility] [address] [id number] [place] [address] Aug, [facility] [address] [address] Jun, [facility] [address] [address] May, [facility] [address] [address] May, Bipolar affective disorder F31.9 ; ADHD (attention deficit hyperactivity disorder), combined type F90.2 ; Social phobia F40.10 and Oppositional defiant behavior F91.3 [facility] [address] [place] [id number] [place] [address] Apr, [place] [address] [place] [id number] [place] [address] Apr, ADHD (attention deficit hyperactivity di sorder), combined type F90.2 ; Social phobia F40.10 and Bipolar affective disorder F31.9 [facility] [address] [place] [address] [id number] [place] [address] Feb, Bipolar disorder, unspecified 296.80 ; S ocial phobia 300.23 and Attention deficit disorder of childhood without mention of hyperactivity 314.00 [facility] [address] [address] Sep, [facility] [address] [address] Sep, [facility] [address] [address] October, [facility] [address] [address] October, [facility] [address] [address] Sep, [facility] [address] [address] Sep, [facility] [address] [address] Sep, [facility] [address] [address] Aug, [facility] [address] [address] Aug, [facility] [address] [address] Jul, [facility] [address] [address] Jul, [facility] [address] [place] [id number] [place] [address] Jul, [facility] [address] [address] 05 Jul, 2013 [facility] [address] [place] [address] [id number] [place] [address] Jun, [facility] [address] [place] [address] [id number] [place] [address] Jun, [facility] [address] [place] [address] [id number] [place] [address] May, [facility] [address] [place] [id number] [place] [address] May, [facility] [address] [place] [address] [id number] [place] [address] Apr, [facility] [address] [place] [id number] [place] [address] Apr, [facility] [address] [place] [address] [id number] [place] [address] Aug, [facility] [address] [place] [id number] [place] [address] Jul, [facility] [address] [place] [address] [id number] [place] [address] Jun, [facility] [address] [place] [address] [id number] [place] [address] Jun, [facility] [address] [place] [address] [id number] [place] [address] May, [facility] [address] [place] [address] [id number] [place] [address] May, IMMUNIZATIONS No Known Immunizations SOCIAL HISTORY Never Assessed REASON FOR VISIT PLAN OF CARE VITAL SIGNS Height 67.75 in 2013-08-01 Weight 145 lbs 2013-08-01 Temperature 98.4 degrees Fahrenheit 2013-08-01 Heart Rate 80 bpm 2013-08-01 Respiratory Rate 24 2013-08-01 Blood pressure systolic 114 mmHg 2013-08-01 Blood pressure diastolic 90 mmHg 2013-08-01 MEDICATIONS Unknown Medications RESULTS No Results PROCEDURES [...] Hospitalization History TORSTEN Orourke 01/2015 Hospitalization History [facility] 10/2016 Hospitalization History [facility] 06/2015 Hospitalization History Overdose 2017 Hospitalization History via becky [facility]RI[facility] 01/2018 Hospitalization History overdose 10/2018
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
== END 2019-11-15 20:27 | disposition home or self-care (01) ==
LOC: EDUNIT# 19:10 → ER 19:11
DX: S60.221A Contusion of right hand, initial encounter (principal); F31.9 Bipolar disorder, unspecified; Z88.0 Allergy status to penicillin; Z77.22 Contact with and (suspected) exposure to environmental tobacco smoke (acute) (chronic); Z82.49 Family history of ischemic heart disease and other diseases of the circulatory system; W22.8XXA Striking against or struck by other objects, initial encounter
CPT/HCPCS: 73130

== ENCOUNTER 2020-04-02 01:04 | Emergency (ER) | payer MEDICARE, MEDICAID ==
[~2020-04-02] VITALS: Ht 175 cm; Wt 70.0 kg
[~2020-04-02 01:04] MED LIST changes: -PANT40TA3 PO; +PANT40TA52 PO; +WATER (STERILE) FOR INJECTION 10 ML ONE; +ZIPRASIDONE 20 MG INJ (GEODON) VIAL IM ONE
[2020-04-02] MEDS ORDERED: LACTATED RINGERS 1,000 ML IV ONE (01:13)
[2020-04-02] MEDS ORDERED: TETANUS,DIPTH,PERTUSS P/F (BOOSTRIX) 0.5 ML VIAL IM ONE (01:15)
[2020-04-02] MEDS ORDERED: ONDANSETRON 4 MG/2 ML (SDV) Z0FRAN IVP ONE (01:15)
--- NOTE | 2020-04-02 01:15 | NUR ---
Pt initially very beligerant on arrival; states he "just wants fucking walk out of here". Pt initially uncooperative with care.
--- NOTE | 2020-04-02 01:20 | NUR ---
Pt arrives by EMS with large laceration to the left side of his nose; states that he fell down. Pt is A&O, denies LOC. Pt admits to drinking alcohol tonight. GCS is 15. Pupils are 3mm and PERRLA. Pt has an approx 6cm laceration with controlled bleeding to his left nose. No other obvious signs of injury; pt denies injury or pain on head to toe.
[2020-04-02 01:29] LABS: BASOPHILS % (AUTO) 0 % (0-10); EOSINOPHILS # (AUTO) 0.1 10^3/uL (0.0-0.3); EOSINOPHILS % (AUTO) 1 % (0-10); HEMATOCRIT 45 % (40-54); HEMOGLOBIN 15.8 g/dL (13.3-17.7); LYMPHOCYTES # (AUTO) 2.4 10^3/uL (1.0-4.0); LYMPHOCYTES % (AUTO) 35 % (12-44); MEAN CORPUSCULAR HEMOGLOBIN 33 pg (25-34); MEAN CORPUSCULAR HGB CONC 35 g/dL (32-36); MEAN CORPUSCULAR VOLUME 93 fL (80-99); MEAN PLATELET VOLUME 10.1 fL (9.0-12.2); MONOCYTES # (AUTO) 0.4 10^3/uL (0.0-1.0); MONOCYTES % (AUTO) 5 % (0-12); NEUTROPHILS % (AUTO) 59 % (42-75); PLATELET COUNT 271 10^3/uL (130-400); WHITE BLOOD COUNT 6.9 10^3/uL (4.3-11.0)
--- NOTE | 2020-04-02 01:30 | NUR ---
Discussed the importance of receiving care and pt calmed down and agrees to care.
[2020-04-02 01:38] LABS: ALBUMIN 4.6 GM/DL (3.2-4.5); CHLORIDE 107 MMOL/L (98-107); POTASSIUM 3.2 MMOL/L (3.6-5.0); SODIUM 143 MMOL/L (135-145)
[2020-04-02 01:39] LABS: CALCIUM 8.8 MG/DL (8.5-10.1)
[2020-04-02 01:41] LABS: GLUCOSE 109 MG/DL (70-105); TOTAL PROTEIN 7.2 GM/DL (6.4-8.2)
[2020-04-02 01:42] LABS: BILIRUBIN,TOTAL 0.4 MG/DL (0.1-1.0); CARBON DIOXIDE 23 MMOL/L (21-32)
[2020-04-02 01:44] LABS: ALKALINE PHOSPHATASE 59 U/L (40-136); CREATININE SERUM 1.01 MG/DL (0.60-1.30); GFR ESTIMATED > 60
[2020-04-02 01:45] LABS: BUN/CREATININE RATIO 9
[2020-04-02 01:47] LABS: ALANINE AMINOTRANSFERASE 12 U/L (0-55)
--- NOTE | 2020-04-02 02:03 | NUR ---
PT BACK FROM RADIOLOGY
[2020-04-02] MEDS ORDERED: LIDOCAINE 1% INJ 20 ML 20 ML VIAL INJ ONE (02:15)
[2020-04-02] MEDS ORDERED: KETAMINE HCL 100 MG/ML 5 ML VIAL ONE (02:37)
[2020-04-02] MEDS ORDERED: KETAMINE HCL 100 MG/ML 5 ML VIAL IV ONE ×2 (02:45→04:15)
--- NOTE | 2020-04-02 02:45 | NUR ---
Room prepared for ERP and laceration repair.
[2020-04-02] MEDS: ZIPRASIDONE INJECTION 10 MG in WATER (STERILE) FOR INJECTION 1.2 ML IM PRN ×2 (02:59→03:35)
--- NOTE | 2020-04-02 03:40 | NUR ---
Pt became agitated again, rubbing face in pillow and causing freshly sutured nose to bleed. Dr. Cortez called to room, order received. Pt monitored and went back to sleep.
[2020-04-02 04:06] LABS: BILIRUBIN,URINE NEGATIVE (NEGATIVE); CLARITY,URINE CLEAR; COLOR,URINE YELLOW; GLUCOSE, URINE (UA) NEGATIVE (NEGATIVE); KETONES,URINE NEGATIVE (NEGATIVE); LEUKOCYTE ESTERASE ,URINE NEGATIVE (NEGATIVE); NITRITE,URINE NEGATIVE (NEGATIVE); PH,URINE 6.5 (5-9); PROTEIN,URINE NEGATIVE (NEGATIVE)
[2020-04-02 04:18] LABS: BACTERIA,URINE NEGATIVE /HPF
[2020-04-02 04:19] LABS: AMPHETAMINE SCREEN, URINE NEGATIVE (NEGATIVE); BARBITURATE SCREEN URINE NEGATIVE (NEGATIVE); BENZODIAZEPINES SCREEN URINE NEGATIVE (NEGATIVE); CANNABINOID SCREEN, URINE POSITIVE (NEGATIVE); COCAINE SCREEN URINE NEGATIVE (NEGATIVE); METHADONE STAT NEGATIVE (NEGATIVE); METHAMPHETAMINE SCREEN URINE S NEGATIVE (NEGATIVE); OPIATE SCREEN URINE NEGATIVE (NEGATIVE); OXYCODONE STAT NEGATIVE (NEGATIVE); PROPOXYPHENE STAT NEGATIVE (NEGATIVE); TRICYCLIC ANTIDEPRESSANTS SCRE NEGATIVE (NEGATIVE)
[2020-04-02] MEDS ORDERED: CLINDAMYCIN 600 MG/4ML (CLEOCIN) VIAL IM ONE (04:30)
[2020-04-02] MEDS ORDERED: CLINDAMYCIN 300 MG/2ML (CLEOCIN) VIAL ONE (05:00)
--- NOTE | 2020-04-02 05:00 | NUR ---
Pt sleeping on monitor; no visible signs of distress noted.
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
--- NOTE | 2020-04-02 06:43 | NUR ---
Pt remains sleeping; no signs of distress noted; will continue to monitor.
[2020-04-02] MEDS ORDERED: KCL 10 MEQ TAB (MICRO K) PO ONE (06:45)
--- NOTE | 2020-04-02 06:54 | Diagnostic Imaging Report ---
PROCEDURE: CT head, face, and cervical spine without contrast. TECHNIQUE: Multiple contiguous axial images were obtained through the head, neck, and facial bones without the use of intravenous contrast. Sagittal and coronal reformations through the cervical spine and facial bones were also performed. Auto Exposure Controls were utilized during the CT exam to meet ALARA standards for radiation dose reduction. INDICATION: Fall. Laceration of the nose. Alcohol intoxication. COMPARISON: None. FINDINGS: CT head: The ventricles and cortical sulci are age-appropriate. There is no midline shift or mass-effect. No acute intracranial hemorrhage is seen. There is no CT evidence of acute territorial ischemia. No focal masses or collections are present. The calvarium is intact. CT face: Mildly displaced fracture seen involving the left nasal bone. The bony nasal septum is intact. The mandible, zygomatic arches, and pterygoid plates are intact. The bilateral TMJ demonstrate normal articulation. The paranasal sinuses and mastoid air cells are well pneumatized. The globes and orbits are symmetric and unremarkable. No evidence of orbital rim fracture. CT cervical spine: No acute fracture or dislocation is seen in the cervical spine. No focal osseous lesions. Vertebral body heights are well-maintained. The craniocervical junction is well-maintained. Soft tissues of the neck are unremarkable. The included lung apices are clear. IMPRESSION: 1. No hemorrhage or focal intra-axial mass. No CT evidence of large acute territorial ischemia. 2. No acute fracture or dislocation in the cervical spine. 3. Mildly displaced fracture involving the left nasal bone. No other acute facial fractures are seen. Agree with overnight report. Dictated by: Dictated on workstation # [id number]
--- NOTE | 2020-04-02 07:26 | NUR ---
Report to Mildred, RN
--- NOTE | 2020-04-02 07:30 | NUR ---
TO ROOM SLEEPING SAO2 94% ON ROOM AIR.
--- NOTE | 2020-04-02 07:33 | Diagnostic Imaging Report ---
INDICATION: Fall COMPARISON: 10/31/2018 FINDINGS: Single frontal view of the chest demonstrates normal heart size and pulmonary vascularity. The lungs are well aerated and clear. No large pleural effusion or pneumothorax is seen. The visualized osseous structures show no acute abnormalities. IMPRESSION: 1. No acute cardiopulmonary process. Dictated by: Dictated on workstation # [id number]
[2020-04-02 08:30] VITALS: BP 153/100
== END 2020-04-02 08:34 | disposition home or self-care (01) ==
LOC: EDUNIT# 01:04 → ER 01:06
DX: S02.2XXA Fracture of nasal bones, initial encounter for closed fracture (principal); S01.81XA Laceration without foreign body of other part of head, initial encounter; F10.129 Alcohol abuse with intoxication, unspecified; F19.10 Other psychoactive substance abuse, uncomplicated; R45.1 Restlessness and agitation; F31.9 Bipolar disorder, unspecified; F17.210 Nicotine dependence, cigarettes, uncomplicated; R40.2410 Glasgow coma scale score 13-15, unspecified time; Z23 Encounter for immunization; Z88.1 Allergy status to other antibiotic agents; W18.39XA Other fall on same level, initial encounter
CPT/HCPCS: 70450; 70486; 71045; 72125; 80053; 80306; 81000; 83735; 85025; G0480; 36415; 80320; 90715

== ENCOUNTER 2020-09-28 13:11 | Emergency (ER) | payer MEDICAID, MEDICARE ==
[~2020-09-28] VITALS: Ht 172 cm; Wt 62.5 kg
[~2020-09-28 13:11] MED LIST changes: +GUAN3TAB2 PO; -GUAN3TAB3 PO; -WATER (STERILE) FOR INJECTION 10 ML ONE; -ZIPRASIDONE 20 MG INJ (GEODON) VIAL IM ONE
[2020-09-28 13:15] VITALS: BP 144/94
[2020-09-28] MEDS ORDERED: NAPR-1070 PO (13:20)
[2020-09-28] MEDS ORDERED: BENZ9.4C MM (13:20)
[2020-09-28] MEDS ORDERED: CLIN300C12 PO (13:20)
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
== END 2020-09-28 13:29 | disposition home or self-care (01) ==
LOC: EDUNIT# 13:11 → ER 13:13
DX: K02.9 Dental caries, unspecified (principal); F31.9 Bipolar disorder, unspecified; Z77.22 Contact with and (suspected) exposure to environmental tobacco smoke (acute) (chronic); Z88.1 Allergy status to other antibiotic agents
CPT/HCPCS: 99282